=== PATIENT | male | born 1940 | race Caucasian/White ===

== ENCOUNTER → 2020-10-17 09:13 | Outpatient (BNVA) | payer OTHER, SELFPAY | PROVIDERS: Family Provider Nurse Practitioner; PCP Emergency Medicine Emergency Medical Services; Visit Provider Specialist | DX: M65.30 Trigger finger, unspecified finger (principal); G56.01 Carpal tunnel syndrome, right upper limb; G56.21 Lesion of ulnar nerve, right upper limb; R20.0 Anesthesia of skin; R20.2 Paresthesia of skin; Z87.891 Personal history of nicotine dependence | CPT/HCPCS: 95886; 95908 ==

== ENCOUNTER → 2021-04-25 10:01 | Outpatient (BNVA) | payer OTHER, SELFPAY | PROVIDERS: Family Provider Nurse Practitioner; PCP Nurse Practitioner; Visit Provider Orthopaedic Surgery | DX: M79.641 Pain in right hand (principal) | CPT/HCPCS: 73130 ==

== ENCOUNTER → 2021-07-25 10:13 | Day surgery (SDC) | payer OTHER, SELFPAY | PROVIDERS: PCP Nurse Practitioner; Visit Provider Orthopaedic Surgery | DX: Z01.818 Encounter for other preprocedural examination (principal); M17.12 Unilateral primary osteoarthritis, left knee | CPT/HCPCS: 80048; 93005; J0330; J1100; J2370; J2405; J2704; J2710; J3010; J3490 ==

== ENCOUNTER → 2021-07-25 11:45 | Outpatient (BNVA) | payer OTHER, SELFPAY | PROVIDERS: PCP Nurse Practitioner; Visit Provider Orthopaedic Surgery | DX: Z01.812 Encounter for preprocedural laboratory examination (principal); Z20.822 Contact with and (suspected) exposure to COVID-19 | CPT/HCPCS: 87635 ==

== ENCOUNTER 2021-07-31 17:11 | Observation (INO) | payer OTHER, MEDICARE, SELFPAY ==
[2021-07-25 10:00] VITALS: BMI 31.4
--- NOTE | 2021-07-25 10:13 | ECG_ITS ---
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
--- NOTE | 2021-07-25 11:23 | ANES.PREANE2 ---
Pre-Anesthetic Assessment Pre-Anesthetic Assessment: Height/Weight: Height 1.8 m Weight 102.058 kg Preop Diagnosis: Osteoarthritis Left knee Proposed Procedure: Operation Date: 07/31/21 11:45 Proposed Procedures p Total Knee Arthroplasty Left 16167 M17.12(Left) - Nathan Ayala MD Was Beta Brionna taken within 24 hours: Yes Social: Social History: No alcohol and No tobacco Exam: Pre-Anes Outpt Exam: alert, oriented x 3, clear to auscultation bilaterally and regular rate & rhythm Airway: Submandibular: WNL Cervical ROM: WNL History/ROS: No significant history except as noted Pulmonary: Pulmonary: None reported CV/HEM: Comments: Hx of hypertensive crisis METS < 4 : : None reported Hepatic: Hepatic: None reported GI: GI: GERD Metabolic: Metabolic: DM Musc/skel: Musc/skel: OA/DJD Neuropsych: Neuropsych: Anxiety Anesthetic Plan: ASA status: 3 Anesthesia: Anesthesia Evaluation and Regional (specify below) Other: Spinal, Adductor canal block for post op pain control Risk of > 500 ml blood loss (7ml/kg in children): No PFSH Anesthesia PFSH: Medical History Ankle arthritis Diabetes Eye disorder Gall bladder 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 Knee cap dislocation Rotator cuff arthropathy Family History Mother CAD (coronary artery disease) Social History Smoking and tobacco status: never smoked Alcohol intake: former Data Anesthesia CBC & Chem 7: 07/25/21 10:18 Cardiac Studies: No Data to Display
[2021-07-25 11:50] LABS: Anion Gap 17.6 (5-19); Blood Urea Nitrogen 18 mg/dL (8-23); Calcium 8.6 mg/dL (8.5-10.5); Carbon Dioxide 23 mmol/L (22-29); Chloride 100 mmol/L (98-107); Glucose 137 mg/dL (65-115); Osmolality Calculated 286 mOsm/kg (285-295); Potassium 4.6 mmol/L (3.5-5.1); Sodium 136 mmol/L (136-145)
[2021-07-31] VITALS (19 sets, daily range): BP systolic 92–155; BP diastolic 58–91; PULSE 62–88; RESP 10–18; TEMP 36.5–36.9; O2SAT 91–99
[2021-07-31] MEDS: acetaminophen 500 mg Tablet 1000 MG PO ×2 (10:43→18:02)
[2021-07-31] MEDS: sodium chloride 0.9% 1,000 ML 30 ML IV (10:43)
[2021-07-31] MEDS: oxyCODONE 20 mg ER (12 HR) Tablet PO (10:43)
[2021-07-31 10:49] LABS: Glucose Point of Care 160 mg/dL (70-110)
--- NOTE | 2021-07-31 13:20 | W.PM.OPSFHP ---
Same Day Surgery H&P Indication for Procedure/HPI DATE OF PROCEDURE: July 31, 2021 CHIEF COMPLAINT/INDICATIONFOR SURGICAL PROCEDURE: Osteoarthritis left knee here for total knee arthroplasty PREOP DIAGNOSIS: Osteoarthritis Left knee PLANNED PROCEDRUE: Operation Date: 07/31/21 11:45 Proposed Procedures p Total Knee Arthroplasty Left 89034 M17.12(Left) - Nathan Ayala MD 81-year-old male with a long history of left knee pain. Previous treatment has included corticosteroid injections and anti-inflammatories including Celebrex. The patient has persistent activity related pain and is here for a left total knee arthroplasty Medications/Allergies* Home Medications Medication Instructions Recorded Confirmed Type metformin 1,000 mg tablet 1,000 mg PO BID 08/01/20 07/31/21 History amlodipine 5 mg tablet 5 mg PO DAILY 10/17/20 07/31/21 History aspirin 81 mg tablet,delayed 81 mg PO DAILY 10/17/20 07/31/21 History release benazepril 20 mg tablet 20 mg PO DAILY 10/17/20 07/31/21 History celecoxib 200 mg capsule 200 mg PO DAILY 10/17/20 07/31/21 History gabapentin 100 mg capsule 100 mg PO TID 10/17/20 07/31/21 History hydrochlorothiazide 25 mg tablet 25 mg PO DAILY 10/17/20 07/31/21 History lovastatin 40 mg tablet 40 mg PO DAILY 10/17/20 07/31/21 History omega-3 fatty acids 500 mg capsule 500 mg PO BID 10/17/20 07/31/21 History venlafaxine 75 mg tablet 75 mg PO BID 10/17/20 07/31/21 History insulin aspart U-100 100 unit/mL 10 unit SUBCUT TID 04/17/21 07/31/21 History subcutaneous solution memantine 5 mg tablet 5 mg PO BID 04/17/21 07/31/21 History metoprolol tartrate 50 mg tablet 50 mg PO DAILY 04/17/21 07/31/21 History pregabalin 200 mg capsule 300 mg PO BID 04/17/21 07/31/21 History cholecalciferol (vitamin D3) 50 mcg PO DAILY 07/25/21 07/31/21 History [Vitamin D3] insulin glargine [Lantus Solostar 40 unit SUBCUT QPM 07/25/21 07/31/21 History U-100 Insulin] Allergies/Adverse Reactions Allergy/AdvReac Type Severity Reaction Status Date / Time morphine Allergy sees things Verified 04/25/21 09:50 Current Medications: Generic Name Dose Route Start Last Admin Trade Name Himanshu PRN Reason Stop Dose Admin Sodium Chloride 1,000 mls @ 30 mls/hr 07/31/21 10:00 07/31/21 10:43 Sodium Chloride 0.9% IV 08/01/21 09:59 30 mls/hr .Q24H ERICA Administration Pertinent History/Comorbid Conditions* Medical History (Updated 04/25/21 @ 10:30 by Nathan Ayala MD) Ankle arthritis Diabetes Eye disorder Gall bladder 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 Knee cap dislocation Rotator cuff arthropathy Family History (Updated 08/01/20 @ 14:42 by Anna Mendez LPN) Mother CAD (coronary artery disease) Mother Social History Smoking and tobacco status: never smoked Alcohol intake: former Pertinent Exam Findings alert, oriented x 3, clear to auscultation bilaterally, regular rate & rhythm and operative site marked Recommendations Surgery/Procedure today Coding Level of Care Code Acute Global Program Director for [address]
[2021-07-31] MEDS: tranexamic acid 1,000 mg/10mL SDV 1000 MG IRRIGATION (14:34)
[2021-07-31] MEDS: EPINEPHrine 1 mg/mL INJ XX (14:34)
[2021-07-31] MEDS: ketorolac 30 mg/mL INJ IM (14:35)
[2021-07-31] MEDS: tranexamic acid 1,000 mg/10mL SDV 1000 MG IV (14:35)
--- NOTE | 2021-07-31 14:44 | ANES.PROC ---
Anesthesia Procedures Procedure/Date: 07/31/21 Nerve Block ^: Nerve Block 1: Main Anesthesia: spinal anesthesia block Time Out Performed: Yes Consent: requested by attending/covering physician, from patient, risks and benefits reviewed and patient agrees to proceed Nerve block location: adductor canal (left) Anesthesia monitors applied: pulse oximetry, EKG, BP cuff and oxygen Nerve block position: supine Anesthetic Used: ropivicaine 0.5% Amount of anesthesia used (mL): 20 Ultrasound used to: recognize landmarks Nerve Stimulator Used?: No Interscalene/Femoral BLK: 4 stimuplex 21 g needle used for position and inplane approach and visualize local anesthetic spread Injection: neg aspiration of heme Patient Tolerated Procedure: well Complications: none
--- NOTE | 2021-07-31 15:44 | XR_ITS ---
WS: [id number] XR knee LT -2V 65736 REASON FOR EXAM: Left Total knee arthroplasty FINDINGS: 3 component total left knee arthroplasty. Prosthetic complements are in proper position and alignment. No focal bony abnormality. XR/[place] [address] IMPRESSION: Total left knee arthroplasty without abnormality.
--- NOTE | 2021-07-31 15:45 | P.PCN_ITS ---
Documented by User: Danyel Vargas CRNA 07/31/21 15:46 PACU note PACU note: VSS, Good respiratory effort, report to PSYCHOTHERAPIST Post-Anesthesia Exam: awake
--- NOTE | 2021-07-31 15:45 | PM.OP ---
Operative Report Date of procedure: July 31, 2021 Pre-op Diagnosis: Osteoarthritis Left knee Post-op diagnosis: same Post-op Findings: Same Procedure Done: Left total knee arthroplasty Pathology: none sent Surgeon: Nathan Ayala Anesthesia: Nerve Block ( spinal, adductor canal block) Estimated blood loss (mL): 250 Findings: Patient had eburnated bone over the medial femoral condyle patella and trochlea Condition: stable Disposition: PACU Procedure: The patient was taken to the operating room. Patient was given 1 g of tranexamic acid . The above anesthesia provided by the anesthesia service. A timeout was performed. The patient was prepped and draped in the usual fashion with the lower extremity exposed. A anterior incision was made, midline, from a point proximal to the patella to the distal tibial tubercle. The knee was entered through a medial parapatellar approach. The patella could be displaced laterally and the knee flexed. The patellar fat pad was resected to provide better visibility. Retractors were placed medially and laterally adjacent to the tibial plateau. The femoral canal was drilled in line with the longitudinal axis of the femur. Intramedullary femoral guide for used to make a distal femoral cut in 5 degrees of valgus, resecting 8 mm from the more prominent condyle. Next the extra medullary tibial guide was placed in alignment with the longitudinal axis of the tibia. The cutting guides were set to remove just over 9 mm from the high tibial plateau. The proximal tibia was then cut. The femoral measuring guide was then placed over the distal femur. Rotation was verified checking the relationship of the guide to the condyle and the trochlear groove. The femur was measured and cut for the desired femoral component. The desired tibial baseplate was then chosen. A trial reduction with the femur tibial baseplate and polyethylene was done, assuring that the knee was stable throughout full motion. Ligament balancing nothing more than a release of the deep medial collateral ligament.The tibia was prepared for the tibial baseplate. Patellar thickness was then measured. The patella was cut removing articular cartilage and prepared for appropriate size patellar button. surfaces were cleaned with a gentamicin solution. The femur tibia and patella were then press-fit into place. The posterior capsule and collateral ligaments were then injected with a solution of 100 mL of 0.2% ropivacaine, 1 mL of a 1:1000 epinephrine solution, 30 mg of Toradol, and 1 g of tranexamic acid. final polyethylene component was then snapped into place into the tibia. The extensor retinaculum was closed with a running 1 Stratafix.. The subcutaneous tissues were closed with 2-0 Vicryl and the skin was closed with a running 4-0 Stratafix. The wound was covered with a Dermabond Prinio dressing. It was covered with 4xrs and a compressive Tubigauae was applied. The patient was taken to recovery room in stable condition. [employer] total knee arthroplasty components were used includin) Size 7 triathalon cruciate retaining femoral component 2) Size 6 Tritanium tibial component 3) 35 mm /10 mm thickness Tritanium asymetric patella 4) Size 6/9 mm thickness CR tibial bearing insert
[2021-07-31] MEDS: flumazenil 0.1 mg/mL SDV 5mL 0.5 MG (15:57)
--- NOTE | 2021-07-31 16:47 | ANE.PACU2 ---
Inpatient post-anesthesia follow up: Airway intact: Yes Vital signs: Temperature 97.7 F Pulse Rate 70 Respiratory Rate 11 Blood Pressure 126/58 Pulse Oximetry 91 Oxygen Delivery Me thod Room Air Oxygen Flow Rate 10 Fraction of Inspir ed Oxygen Hydration adequate: Yes Nausea and vomiting: No Pain level: 1 Mental status: Altered (Patient difficult to arouse, flumazenil given 0.1mg which helped)
[2021-07-31] MEDS: sodium chloride 0.9% 1,000 ML 100 ML IV (17:52)
[2021-07-31 18:00] LABS: Glucose Point of Care 212 mg/dL (70-110)
[2021-07-31] MEDS: CELEcoxib 200 mg Capsule PO (18:03)
[2021-07-31] MEDS: insulin lispro 100 unit/1 mL SUBCUT ×2 (18:03→21:09)
[2021-07-31] MEDS: pregabalin 100 mg Capsule 300 MG PO (18:03)
[2021-07-31] MEDS: venlafaxine 75 mg Tablet PO (18:03)
[2021-07-31] MEDS: memantine 5 mg tablet PO (18:03)
--- NOTE | 2021-07-31 18:35 | PC.NURSE ---
Patient received to floor from OR via stretcher. Pt scooted self over to bed. Oriented to room/call light. Clear liquids given. at bedside.
[2021-07-31] MEDS: oxyCODONE 5 mg IR Tab/Cap PO (21:00)
[2021-07-31 21:06] LABS: Glucose Point of Care 189 mg/dL (70-110)
[2021-07-31] MEDS: gabapentin 100 mg Capsule PO (22:57)
[2021-08-01 00:10] VITALS: BP 147/70; PULSE 73; RESP 16; TEMP 36.6; O2SAT 94
[2021-08-01] MEDS: acetaminophen 500 mg Tablet 1000 MG PO ×2 (01:38→09:01)
[2021-08-01 01:44] VITALS: RESP 16
[2021-08-01] MEDS: oxyCODONE 5 mg IR Tab/Cap PO ×2 (01:44→09:01)
[2021-08-01 04:10] VITALS: BP 160/87; PULSE 70; RESP 15; TEMP 36.6; O2SAT 95
[2021-08-01] MEDS: sodium chloride 0.9% 1,000 ML 100 ML IV (04:31)
[2021-08-01 04:41] LABS: Hemoglobin 13.3 g/dL (11.7-16.6)
[2021-08-01] MEDS: CELEcoxib 200 mg Capsule PO (05:58)
--- NOTE | 2021-08-01 07:21 | P.DS_ITS ---
Discharge Providers Date of Admission: 07/31/21 17:11 Date of Discharge: August 01, 2021 Attending Provider at Admission: Nathan Ayala MD Attending Provider at Discharge: Nathan Ayala MD Primary Care Provider: TANMAY Rangel Diagnoses at Discharge Discharge Diagnosis (1) Osteoarthritis of left knee: Status: Resolved (2) Status post left knee replacement: Status: Acute Reason for Visit Reason for Visit: Primary osteoarthritis of left knee Hospital Course Hospital Course The patient tolerated surgery well. They remained hemodynamically stable. They was begun on aspirin and sequential compression dressings for DVT prophylaxis. The patient was mobilized with therapy beginning the day of surgery and by the first postoperative day independent with the walker. As the pain was adequately controlled and they were fully mobile they were discharged home. Physical Exam Narrative: EXAM NARRATIVE: On the day of discharge his knee incision was clean. They had no drainage. There is minimal swelling in the thigh and knee and the calf. No distal neurovascular deficits were noted Urinary Catheter Management^: Spears: Cath Placed During This Visit: yes Reason for Continuing Indwelling Catheter: Not indwelling catheter Urinary Catheter Date of Insertion: 07/31/21 Urinary Catheter Time of Insertion: 14:05 Discharge Data Data Completed and Pending: Pending at discharge Category Date Time Status XR knee LT 1-2V 7 3560 Routine Exams 07/31/21 15:44 Taken Labs from last 24 hours 08/01/21 07/31/21 07/31/21 04:07 21:03 17:55 Hgb 13.3 POC Glucose 189 H 212 H 07/31/21 10:35 Hgb POC Glucose 160 H Vitals: Last Vital Signs Temp 97.9 F 08/01/21 04:10 Pulse 70 08/01/21 04:10 Resp 15 08/01/21 04:10 BP 160/87 08/01/21 04:10 Pulse Ox 95 08/01/21 04:10 Discharge Plan Discharge Patient Disposition: Home Condition: Stable Prescriptions: New oxycodone 5 mg Tablet 5 mg PO Q4H PRN (Reason: Moderate Pain) 7 Days Qty: 40 RF: 0 acetaminophen 500 mg Tablet 1,000 mg PO Q8H 14 Days Qty: 84 RF: 0 celecoxib 200 mg Capsule 200 mg PO Q12H 14 Days Qty: 28 RF: 0 Continued gabapentin 100 mg capsule 100 mg PO TID RF: 0 omega-3 fatty acids 500 mg capsule 500 mg PO BID RF: 0 venlafaxine 75 mg tablet 75 mg PO BID RF: 0 lovastatin 40 mg tablet 40 mg PO DAILY RF: 0 amlodipine 5 mg tablet 5 mg PO DAILY RF: 0 benazepril 20 mg tablet 20 mg PO DAILY RF: 0 hydrochlorothiazide 25 mg tablet 25 mg PO DAILY RF: 0 aspirin [Adult Low Dose Aspirin] 81 mg tablet,delayed release (DR/EC) 81 mg PO DAILY RF: 0 metformin 1,000 mg tablet 1,000 mg PO BID RF: 0 memantine 5 mg tablet 5 mg PO BID RF: 0 pregabalin 200 mg capsule 300 mg PO BID RF: 0 insulin aspart U-100 [Novolog U-100 Insulin aspart] 100 unit/mL solution 10 unit SUBCUT TID RF: 0 metoprolol tartrate 50 mg tablet 50 mg PO DAILY RF: 0 mupirocin 2 % ointment 1 applic topical BID Qty: 15 RF: 0 Lantus Solostar U-100 Insulin 100 unit/mL (3 mL) Insulin Pen 40 unit SUBCUT QPM RF: 0 cholecalciferol (vitamin D3) [Vitamin D3] 50 mcg (2,000 unit) Tablet 50 mcg PO DAILY RF: 0 Discontinued celecoxib 200 mg capsule 200 mg PO DAILY RF: 0 Discharge Orders: Discharge Order (Routine); Ordered 08/01/21 Ordered By: Nathan Ayala Other Ambulatory Orders: DME: Stuart (Order) Location: None Selected Ordered By: Nathan Ayala Referrals: Nathan Ayala MD [Physician] - 08/04/21 9:10 am Discharge Diet: Advance as tolerated Discharge Activity: Limit activity as instructed Patient Instructions: Opioid Safety Activity Restrictions/Additional Instructions: Okay to shower Keep Tubigauze sleeve in place for swelling. Okay to remove for hygiene. Apply FirstIce up to 20 min/hr for pain and swelling Take Celebrex twice a day for the next 15 days for pain , discontinue other anti-inflammatories Take Tylenol 500mg (1-2 tabs) as needed 3 times a day for mild pain take oxycodone for breakthrough pain. Exercises per physical therapy. May weight-bear as tolerated on total knee arthroplasty Discharge Attestations Time Spent in Discharge Care*: other Quality Metrics Clinical Quality Measures During this hospital stay, did patient experience: None Coding Level of Care Code Acute [facility] note Diagnoses Osteoarthritis of left knee M17.12 Status post left knee replacement Z96.652
[2021-08-01] MEDS: amlodipine 10 mg Tablet 5 MG PO (08:56)
[2021-08-01] MEDS: atorvastatin 40 mg Tablet 20 MG PO (08:57)
[2021-08-01] MEDS: aspirin 81 mg EC Tablet PO (08:57)
[2021-08-01] MEDS: hydroCHLOROthiazide 25 mg Tablet PO (08:58)
[2021-08-01] MEDS: gabapentin 100 mg Capsule PO (08:58)
[2021-08-01] MEDS: lisinopril 20 mg Tablet PO (08:59)
[2021-08-01] MEDS: metoprolol tartrate 25 mg Tablet 50 MG PO (08:59)
[2021-08-01] MEDS: memantine 5 mg tablet PO (08:59)
[2021-08-01] MEDS: pregabalin 100 mg Capsule 300 MG PO (09:00)
[2021-08-01 09:01] VITALS: RESP 18
[2021-08-01] MEDS: venlafaxine 75 mg Tablet PO (09:01)
[2021-08-01 09:14] LABS: Glucose Point of Care 131 mg/dL (70-110)
[2021-08-01 10:28] VITALS: BP 141/72; PULSE 74; RESP 18; TEMP 36.7; O2SAT 92
[2021-08-01 11:33] LABS: Glucose Point of Care 157 mg/dL (70-110)
[2021-08-01] MEDS: insulin lispro 100 unit/1 mL SUBCUT (11:41)
[2021-08-01 15:05] VITALS: BP 105/54; PULSE 64; RESP 16; TEMP 36.6; O2SAT 93
== END 2021-08-01 14:15 | disposition home or self-care (01) ==
PROVIDERS: Anesthesiology; Admitting Provider Orthopaedic Surgery; PCP Nurse Practitioner; Visit Provider Orthopaedic Surgery
PROC: (CPT 27447; principal; 2021-07-31 11:30)
DX: M17.12 Unilateral primary osteoarthritis, left knee (principal); K21.9 Gastro-esophageal reflux disease without esophagitis; E11.9 Type 2 diabetes mellitus without complications; F41.9 Anxiety disorder, unspecified; Z79.84 Long term (current) use of oral hypoglycemic drugs; Z79.82 Long term (current) use of aspirin; Z79.4 Long term (current) use of insulin
CPT/HCPCS: 27447; 36415; 36416; 51702; 73560; 82962; 85018; 96372; 97110; 97116; 97161; 97165; C1776; G0378; J0171; J0690; J1580; J1815; J1885; J2250; J2370; J2704; J2795; J3010; J3490; J7030

== ENCOUNTER 2021-08-02 15:26 | Outpatient (CLI) | payer OTHER, SELFPAY | END 2021-08-02 15:27 | disposition home or self-care (01) | LOC: SPT 15:28 | PROVIDERS: PCP Nurse Practitioner; Visit Provider Orthopaedic Surgery | DX: Z46.89 Encounter for fitting and adjustment of other specified devices (principal); Z96.652 Presence of left artificial knee joint; M25.562 Pain in left knee | CPT/HCPCS: 97760; L1830 ==

== ENCOUNTER 2021-08-13 05:39 | Inpatient (IN) | payer OTHER, MEDICARE, SELFPAY ==
[2021-08-13] VITALS (18 sets, daily range): BP systolic 110–179; BP diastolic 65–102; PULSE 64–106; RESP 12–20; TEMP 36.2–36.9; O2SAT 70–97; BMI 31.8
--- NOTE | 2021-08-13 05:45 | XRR_ITS ---
PROCEDURE INFORMATION: Exam: XR Left Knee Exam date and time: 08/13/2021 5:45 AM Age: 81 years old Clinical indication: Injury or trauma; Fall; Blunt trauma; Knee; Left; Prior surgery; Surgery date: <1 month; Additional info: Fall, drainage TECHNIQUE: Imaging protocol: XR Left knee. Views: 3 views. COMPARISON: No relevant prior studies available. FINDINGS: Bones/joints: The patient is status post left total knee arthroplasty with patellar resurfacing. No fracture or dislocation. Expected postoperative soft tissue changes noted. Soft tissues: See Bones/joints finding. XR/XR knee LT 3V* [id number] IMPRESSION: Status post left total knee arthroplasty, without evidence of hardware related complication.
[2021-08-13 06:01] LABS: Basophils # 0.1 10^3/uL (0.0-0.1); Basophils % 0.7 %; Eosinophils # 0.4 10^3/uL (0.0-0.8); Eosinophils % 2.3 %; Hematocrit 38.4 % (42.0-52.0); Hemoglobin 12.5 g/dL (11.7-16.6); Lymphocytes # 2.1 10^3/uL (0.8-4.8); Lymphocytes % 13.7 %; Mean Corpuscular HGB Conc 32.6 g/dL (30.0-36.0); Mean Corpuscular Hemoglobin 30.7 pg (28.0-34.0); Mean Corpuscular Volume 94.3 fl (80-94); Mean Platelet Volume 11.3 fL (7.4-10.4); Monocytes # 1.4 10^3/uL (0.2-0.9); Monocytes % 9.3 %; Neutrophils # 11.19 10^3/uL (1.8-7.7); Neutrophils % 72.8 %; Nucleated Red Blood Cells % 0 %; Platelet Count 382 10^3/cmm (130-400); Red Blood Count 4.07 10^6/uL (4.1-5.3); Red Cell Distribution Width 13.6 % (12.1-15.1); White Blood Count 15.4 10^3/uL (4.0-10.0)
[2021-08-13 06:21] LABS: Alanine Aminotransferase 22 U/L (0-41); Albumin Level 3.8 g/dL (3.5-5.2); Alkaline Phosphatase 60 IU/L (40-130); Aspartate Amino Transferase 29 U/L (0-40); Blood Urea Nitrogen 24 mg/dL (8-23); C Reactive Protein 16.3 mg/L (0.0-4.9); Calcium 8.5 mg/dL (8.5-10.5); Carbon Dioxide 26 mmol/L (22-29); Chloride 101 mmol/L (98-107); Creatine Phosphokinase 45 U/L (39-308); Globulin 3.2 g/dL (1.3-4.6); Glucose 177 mg/dL (65-115); Osmolality Calculated 294 mOsm/kg (285-295); Sodium 138 mmol/L (136-145); Total Bilirubin 0.3 mg/dL (0.15-1.2)
[2021-08-13] MEDS: sodium chloride 0.9% 500 ML IV (06:24)
[2021-08-13 06:28] LABS: Erythrocyte Sedimentation Rate 16 mm/hr (0-10); Lactate (Lactic Acid level) 1.5 mmol/L (0.5-2.2); Procalcitonin 0.17 ng/mL (0-0.5)
--- NOTE | 2021-08-13 06:39 | W.ED.GENADLT ---
HPI - General Adult General: Chief complaint: Fall Stated complaint: LEFT KNEE PAIN Time Seen by Provider: 08/13/21 05:43 History of Present Illness: HPI narrative: Patient is a 81-year-old male with a history of total knee replacement on 07/31/[address] Ayala presenting to the emergency room after wound dehiscence after falling and unable to get up earlier today. Patient tells me that since surgery, patient has noticed left-sided knee swelling. Earlier this morning, patient was attempting to ambulate to the bathroom with a walker when his walker does not fit the door and he walked to the bathroom without a walker. Shortly after, he fell onto the left knee and the wound dehisced. Patient denies any fever/chills, drainage from the knee, or any other injuries as a result of the fall. Onset: earlier today Duration:ongoing Location:home Severity:severe Review of Systems Narrative: Constitutional: No fever, no chills. HEENT: No vision changes CV: No chest pain, no palpitations PULM: no cough, no dyspnea. GI: No abdominal pain, no N/V/D. : No dysuria MSKEL: No muscle pain SKIN: +wound dehiscence L knee NEURO: No headache, no focal weakness. HEME: No visible bruises PSYCH: Normal mood PFSH ED PFSH: Medical History Ankle arthritis Diabetes Eye disorder Gall bladder 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 Knee cap dislocation Rotator cuff arthropathy Family History Mother CAD (coronary artery disease) Social History Smoking and tobacco status: never smoked Alcohol intake: former Physical Exam Narrative: EXAM NARRATIVE: Head: Atraumatic Eyes: PERRL, conjunctiva without injection ENT: Mucous membrane moist NECK: Supple, ROM intact LUNGS: LCTAB, no crackles/rhonchi CV: RRR ABDOMEN: Soft, nontender in all quadrants EXTREMITY: Normal ROM SKIN: +large wound dehiscence over the L knee, +no drainage/excessive bleeding, +LLE below the knee swelling/erythema/warmth NEURO: Awake and alert, no focal motor deficits PSYCH: Normal mood and affect Course Vital Signs: Vital signs: Vital Signs Temperature 98.1 F 08/14/21 20:53 Pulse Rate 92 08/14/21 20:53 Respiratory Rate 20 H 08/14/21 20:53 Blood Pressure 161/82 08/14/21 20:53 Pulse Oximetry 90 08/14/21 20:53 MDM - General Adult MDM Narrative: Medical decision making narrative: 81-year-old male w/ hx of DM presents emergency room with left knee wound dehiscence after total arthroplasty. Then, patient has a gaping wound, white count 15.4. Patient is afebrile. I have discussed case emergently with the on-call orthopedic surgeon Dr. Nguyen with his to go to the OR for washout. Dr. Nguyen declined antibiotics at this time. Patient also has a L lower extremity cellultis, will require antibiotics on admission Disposition: OR Lab Data: Labs: Lab Results 08/13/21 08/13/21 08/13/21 05:45 05:45 05:45 WBC 15.4 10^3/uL H 10 ^3/uL (4.0-10.0) RBC 4.07 10^6/uL L 10 ^6/uL (4.1-5.3) Hgb 12.5 g/dL g/dL (11.7-16.6) Hct 38.4 % L % (42.0-52.0) MCV 94.3 fl H fl (80-94) MCH 30.7 pg pg (28.0-34.0) MCHC 32.6 g/dL g/dL (30.0-36.0) RDW 13.6 % % (12.1-15.1) Plt Count 382 10^3/cmm 10^3 /cmm (130-400) MPV 11.3 fL H fL (7.4-10.4) Neut % (Auto) 72.8 % % Lymph % (Auto) 13.7 % % [place] % (Auto) 9.3 % % Eos % (Auto) 2.3 % % Baso % (Auto) 0.7 % % Neut # (Auto) 11.19 10^3/uL H 1 0^3/uL (1.8-7.7) Lymph # (Auto) 2.1 10^3/uL 10^3/ uL (0.8-4.8) [place] # (Auto) 1.4 10^3/uL H 10^ 3/uL (0.2-0.9) Eos # (Auto) 0.4 10^3/uL 10^3/ uL (0.0-0.8) Baso # (Auto) 0.1 10^3/uL 10^3/ uL (0.0-0.1) Nucleated RBC % (a uto) 0 % % Nucleated RBCs # 0.0 /100WBC /100W BC ESR 16 mm/hr H mm/hr (0-10) PT INR APTT Sodium 138 mmol/L mmol/L (136-145) Potassium 5.0 mmol/L mmol/L (3.5-5.1) Chloride 101 mmol/L mmol/L (98-107) Carbon Dioxide 26 mmol/L mmol/L (22-29) Anion Gap 16.0 (5-19) BUN 24 mg/dL H mg/dL (8-23) Creatinine 1.1 mg/dL mg/dL (0.7-1.2) GFR Calculation Not Reportable Glucose 177 mg/dL H mg/dL (65-115) Calculated Osmolal ity 294 mOsm/kg mOsm/ kg (285-295) Lactate Calcium 8.5 mg/dL mg/dL (8.5-10.5) Total Bilirubin 0.3 mg/dL mg/dL (0.15-1.2) AST 29 U/L U/L (0-40) ALT 22 U/L U/L (0-41) Alkaline Phosphata se 60 IU/L IU/L (40-130) Creatine Kinase 45 U/L U/L (39-308) C-Reactive Protein 16.3 mg/L H mg/L (0.0-4.9) Total Protein 7.0 g/dL g/dL (6.6-8.7) Albumin 3.8 g/dL g/dL (3.5-5.2) Globulin 3.2 g/dL g/dL (1.3-4.6) Procalcitonin 0.17 ng/mL ng/mL (0-0.5) 08/13/21 08/13/21 05:45 06:44 WBC RBC Hgb Hct MCV MCH MCHC RDW Plt Count MPV Neut % (Auto) Lymph % (Auto) [place] % (Auto) Eos % (Auto) Baso % (Auto) Neut # (Auto) Lymph # (Auto) [place] # (Auto) Eos # (Auto) Baso # (Auto) Nucleated RBC % (a uto) Nucleated RBCs # ESR PT 13.80 SECONDS SEC ONDS (12.1-14.9) INR 1.03 (0.8-1.2) APTT 25.6 SECONDS SECO NDS (23.9-36.7) Sodium Potassium Chloride Carbon Dioxide Anion Gap BUN Creatinine GFR Calculation Glucose Calculated Osmolal ity Lactate 1.5 mmol/L mmol/L (0.5-2.2) Calcium Total Bilirubin AST ALT Alkaline Phosphata se Creatine Kinase C-Reactive Protein Total Protein Albumin Globulin Procalcitonin Imaging Data^: Other Imaging: Radiologist's impression: [address] [id number] ReportSigned Patient: El Maxwell #: [id number]: 1940cct#:[id number]/Sex: 81 / MADM Date: 08/13/21Loc: ERRoom/Bed:Attending Dr: Ordering Provider/Ordering MD: Neo Mahan DO Date of Service: 08/13/21 Procedure(s): XR knee LT 3V* [id number] Accession Number(s): [id number] Report Number: [id number] PROCEDURE INFORMATION: Exam: XR Left Knee Exam date and time: 08/13/2021 5:45 AM Age: 81 years old Clinical indication: Injury or trauma; Fall; Blunt trauma; Knee; Left; Prior surgery; Surgery date: <1 month; Additional info: Fall, drainage TECHNIQUE: Imaging protocol: XR Left knee. Views: 3 views. COMPARISON: No relevant prior studies available. FINDINGS: Bones/joints: The patient is status post left total knee arthroplasty with patellar resurfacing. No fracture or dislocation. Expected postoperative soft tissue changes noted. Soft tissues: See Bones/joints finding. XR/XR knee LT 3V* [id number] IMPRESSION: Status post left total knee arthroplasty, without evidence of hardware related complication. Dictated By:Claudio Shipley By:Claudio Shipley Date/Time:08/13/21 0652DD/ 0545 Discharge Plan Discharge Patient Disposition: Admitted As Inpatient Admit Provider: Annie Sky Clinical Impression: Dehiscence of wound, History of knee replacement, total, Cellulitis Condition: Stable Coding Level of Care Code ED Coffee Blender for [address]
[2021-08-13 07:01] LABS: INR 1.03 (0.8-1.2); Partial Thromboplastin Time 25.6 SECONDS (23.9-36.7)
[2021-08-13] MEDS: HYDROmorphone 1 mg/mL INJ 1 mL 0.5 MG IVP (07:45)
--- NOTE | 2021-08-13 08:37 | ANES.PREANE2 ---
Pre-Anesthetic Assessment Pre-Anesthetic Assessment: Height/Weight: Height 1.83 m Weight 106.594 kg Pulse Resp BP Pulse Ox 74 18 164/77 94 08/13/21 05:59 08/13/21 07:45 08/13/21 05:59 08/13/21 07:45 Preop Diagnosis: Osteoarthritis Left knee Proposed Procedure: Operation Date: 08/13/21 09:10 Proposed Procedures p Incision and Drainage(Left) - Annie Sky MD Familial anesthetic complications: none Was Beta Brionna taken within 24 hours: Yes Last intake: > 8hrs Social: Social History: No alcohol and No tobacco Exam: Pre-Anes Outpt Exam: alert, oriented x 3, clear to auscultation bilaterally and regular rate & rhythm Airway: MP: 3 Dentition: Other (few bottom teeth) Additional comments: full bowden CV/HEM: CV/HEM: HTN GI: GI: GERD Metabolic: Metabolic: DM Anesthetic Plan: ASA status: 3 Anesthesia: General Risk of > 500 ml blood loss (7ml/kg in children): No PFSH Anesthesia PFSH: Medical History Ankle arthritis Diabetes Eye disorder Gall bladder 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 Knee cap dislocation Rotator cuff arthropathy Family History Mother CAD (coronary artery disease) Social History Smoking and tobacco status: never smoked Alcohol intake: former Data Anesthesia CBC & Chem 7: 08/13/21 05:45 08/13/21 05:45 Other Labs: Laboratory Results - last 48 hr 08/13/21 08/13/21 08/13/21 05:45 05:45 05:45 WBC 15.4 H RBC 4.07 L Hgb 12.5 Hct 38.4 L MCV 94.3 H MCH 30.7 MCHC 32.6 RDW 13.6 Plt Count 382 MPV 11.3 H Neut % (Auto) 72.8 Lymph % (Auto) 13.7 [place] % (Auto) 9.3 Eos % (Auto) 2.3 Baso % (Auto) 0.7 Neut # (Auto) 11.19 H Lymph # (Auto) 2.1 [place] # (Auto) 1.4 H Eos # (Auto) 0.4 Baso # (Auto) 0.1 Nucleated RBC % (auto) 0 Nucleated RBCs # 0.0 ESR 16 H PT INR APTT Sodium 138 Potassium 5.0 Chloride 101 Carbon Dioxide 26 Anion Gap 16.0 BUN 24 H Creatinine 1.1 GFR Calculation Not Reportable Glucose 177 H Calculated Osmolality 294 Lactate Calcium 8.5 Total Bilirubin 0.3 AST 29 ALT 22 Alkaline Phosphatase 60 Creatine Kinase 45 C-Reactive Protein 16.3 H Total Protein 7.0 Albumin 3.8 Globulin 3.2 Procalcitonin 0.17 08/13/21 08/13/21 05:45 06:44 WBC RBC Hgb Hct MCV MCH MCHC RDW Plt Count MPV Neut % (Auto) Lymph % (Auto) [place] % (Auto) Eos % (Auto) Baso % (Auto) Neut # (Auto) Lymph # (Auto) [place] # (Auto) Eos # (Auto) Baso # (Auto) Nucleated RBC % (auto) Nucleated RBCs # ESR PT 13.80 INR 1.03 APTT 25.6 Sodium Potassium Chloride Carbon Dioxide Anion Gap BUN Creatinine GFR Calculation Glucose Calculated Osmolality Lactate 1.5 Calcium Total Bilirubin AST ALT Alkaline Phosphatase Creatine Kinase C-Reactive Protein Total Protein Albumin Globulin Procalcitonin Micro: Microbiology 08/13/21 07:05 Blood Culture - Preliminary Blood SPECIMEN COLLECTED 08/13/21 05:45 Blood Culture - Preliminary Blood SPECIMEN COLLECTED Cardiac Studies: No Data to Display
[2021-08-13] MEDS: metoprolol tartrate 50 mg Tablet PO (08:44)
--- NOTE | 2021-08-13 09:01 | P.HPUD_ITS ---
Surgery/Procedure H&P Update DATE OF PROCEDURE: August 13, 2021 DATE H&P PERFORMED: 07/31/21 H&P UPDATE INFORMATION: I have reviewed H&P completed within last 30 days, I have examined patient prior to procedure, Changes to prior documentation as noted here and H&P is in [facility] [place] on date indicated CHANGES TO PREVIOUS DOCUMENTATION: The patient presented today to the emergency department after a fall at home. He got up to go to the bathroom at approximately 2-3 AM, and although he was holding onto the wall, he fell to the floor. He landed directly on his recent left total knee arthroplasty which was placed on July 31. The entire incision split open. He came to the emergency department for evaluation. I was contacted, the patient was to be admitted for IV antibiotics, and he was scheduled for immediate surgical washout and debridement. Further history was obtained, and the patient notes that his knee has been swelling and painful since the time of his surgical intervention. He notes that it gets hot when it swollen. His foot is also swollen. He denies fevers and chills. PREOP DIAGNOSIS: Dehiscence left knee wound PRIMARY INDICATION FOR PROCEDURE: Left total knee arthroplasty wound dehiscence PLANNED PROCEDURE: Operation Date: 08/13/21 09:10 Proposed Procedures p Incision and Drainage(Left) - Annie Sky MD Possible polyethylene exchange and arthrotomy Related Problem List Diagnoses (1) Dehiscence of wound: (2) Status post left knee replacement:
[2021-08-13] MEDS: sodium chloride 0.9% 1,000 ML 30 ML IV (09:10)
[2021-08-13] MEDS: CELEcoxib 200 mg Capsule 400 MG PO (09:15)
[2021-08-13] MEDS: acetaminophen 1,000 MG/100 ML PIGGYBACK 400 MG IV ×2 (09:25→17:29)
[2021-08-13] MEDS: vancomycin 1,000 MG in sodium chloride 0.9% 250 ML 250 MG IV ×2 (09:30→20:51)
[2021-08-13] MEDS: vancomycin 1,000 MG SDV 1000 MG IRRIGATION (10:29)
[2021-08-13] MEDS: vancomycin 1,000 MG SDV 1000 MG XX (11:00)
[2021-08-13] MEDS: tranexamic acid 1,000 mg/10mL SDV 1000 MG IV (11:14)
--- NOTE | 2021-08-13 12:27 | ANE.PACU2 ---
Inpatient post-anesthesia follow up: Airway intact: Yes Vital signs: Temperature 97.3 F Pulse Rate 66 Respiratory Rate 14 Blood Pressure 136/73 Pulse Oximetry 92 Oxygen Delivery Me thod Room Air Oxygen Flow Rate Fraction of Inspir ed Oxygen Hydration adequate: Yes Nausea and vomiting: No Pain level: 3 Mental status: Baseline
[2021-08-13] MEDS: fentaNYL 50 mcg/mL INJ 2mL IVP (12:41)
--- NOTE | 2021-08-13 12:43 | XRR_ITS ---
PROCEDURE INFORMATION: Exam: XR Left Knee Exam date and time: 08/13/2021 12:43 PM Age: 81 years old Clinical indication: Injury or trauma; Fall; Blunt trauma; Knee; Left; Prior surgery; Surgery date: Post-operative (0-2 days); Surgery type: Post op; Additional info: Status post revision polyethylene component anything new TECHNIQUE: Imaging protocol: XR Left knee. Views: 1 or 2 views. COMPARISON: CR (LOW EXM, ) 08/13/2021 6:29 AM FINDINGS: Limitations: Somewhat limited examination due to an overlying knee brace. Bones/joints: Postoperative changes associated with recent total knee arthroplasty revision. No evidence of hardware complication. No radiographic evidence of acute fracture or dislocation. Alignment anatomic. Intra-articular gas and fluid, consistent with recent surgery. Soft tissues: Soft tissue swelling and anterior skin betzaida. XR/XR knee LT 1-2V [id number] IMPRESSION: 1. Postoperative changes associated with recent total knee arthroplasty revision. 2. Additional findings, as above.
--- NOTE | 2021-08-13 12:53 | PM.OP ---
Operative Report Date of procedure: August 13, 2021 Pre-op Diagnosis: Dehiscence left knee wound Post-op Diagnosis: Left knee dehiscence following total knee arthroplasty with quadriceps and medial retinacular rupture Post-op Findings: Medial retinacular rupture and tear of quadriceps tendon in addition to complete wound dehiscence. Procedure Done: Left knee irrigation and debridement of wound dehiscence into the knee joint with revision of tibial polyethylene, complete synovectomy, medial retinacular repair, and repair of quadriceps tendon tear, complete Implants: Tibial bearing insert?CR size 6 x 9 mm Specimens removed/disposition: Synovial tissue and fluid sent for culture Pathology: none sent Surgeon: Annie Sky Economic Manager: [facility] operating room technicians Anesthesia: General (Intubated, ASA 3E) Estimated blood loss (mL): 200 Tourniquet time: Not utilized IV fluids (mL): 700 Urine output (mL): 0 Urine output: No Spears present during procedure Complications: None Findings: Wound dehiscence with complete dehiscence of the fascial layer into the knee joint. Additional findings of large medial retinacular tear extending across the quadriceps tendon into the lateral aspect of the quad tendons. Tear was complete. No obvious fracture noted either on imaging studies or intraoperatively. Condition: stable Disposition: PACU (Then to floor for postoperative rehabilitation and IV antibiotic treatment.) Brief History: This 81-year-old gentleman presented to the emergency department with history of a fall at home. He is status post left total knee arthroplasty performed by Dr. Ayala on July 31, 2021. At the time of his fall, he states he was using the wall for support, and the next thing he knew, he had fallen to the ground and landed on his knee. He is uncertain as to why he fell. He does give a history of swelling in the knee and heat as well as a swollen foot. Upon presentation into the emergency room, he had significant wound dehiscence. He was admitted to the hospital for surgical intervention and subsequent antibiotic therapies. Procedure: The patient was brought to the operating theater, and after undergoing adequate general intubated anesthesia, ASA 3E, the left lower extremity was prepped and draped in usual fashion following placement of a tourniquet high on the leg. The leg was then draped free with the prepping accomplished with Betadine. A surgical pause was performed. At the time of the surgical pause we confirmed the site and side of surgery. The availability of equipment was confirmed, and the patient's identity was verbalized as well. Following the surgical pause, attention was directed to the patient's left lower extremity. A tourniquet was not elevated. The patient had complete wound dehiscence of the subcutaneous tissues and skin. Additionally, he had dehiscence into his total knee arthroplasty. Upon further evaluation, he had medial retinacular complete tear, quadriceps tendon complete tear, and extension laterally. There was no evidence of fracture within the knee joint. Debridement was accomplished of the skin and soft tissues in the subcutaneous area. Additionally, complete synovectomy was performed upon entry into the knee joint. Previous suture was removed as well. As soft tissues were debrided, we were able to better visualize the knee joint. Evaluation of the femur was accomplished as well as the tibia, and once again, no fractures were identified. Synovectomy was performed initially. The tibial insert was removed, and this allowed access to the posterior knee. At this time we were able to complete the synovectomy. Copious irrigation of the knee was accomplished after cultures were obtained. We sent synovial fluid as well as synovium for culture. Irrigation with 6 L of normal saline without antibiotic and an additional 3 L of normal saline with antibiotic was accomplished. We then inserted a tibial tray which matched the one that was removed. This was a CR tibial bearing insert size 6 x 9 mm. This was inserted uneventfully. After insertion of this insert, we then copiously irrigated the knee again with Betadine solution. This was allowed to remain in the wound and was suctioned dry and subsequently irrigated. Following this, attention was directed to quadriceps tendon repair. This also included repair of the medial retinaculum and lateral soft tissues. A Force Fiber #5 was used to internally repair the quadriceps tendon. Externally, this was supplemented with #1 PDS. We also used #1 PDS to close the medial retinaculum and lateral soft tissues. Once we had repaired this, we were able to gently flex the knee and find that this was stable. Closure was continued using #1 PDS along the entire arthrotomy incision line. Repair of the tendon did require extension of the patient's total knee arthroplasty wound proximally. Once this had been closed, further closure was accomplished using 2-0 Monocryl in the subcutaneous tissues, and the skin was closed with skin betzaida. A sterile dressing was then placed consisting of Prineo/Dermabond, Telfa, Tegaderm, sterile soft roll, and an Marlon wrap. The patient was returned the Recovery Room in a satisfactory condition. X-rays were obtained there. The patient will be discharged to the floor for postoperative rehabilitation and pain management. There were no complications. Associated Problem List Diagnoses (1) Dehiscence of wound: (2) Status post left knee replacement:
[2021-08-13] MEDS: oxyCODONE 5 mg IR Tab/Cap PO ×3 (13:35→22:22)
[2021-08-13] MEDS: gabapentin 100 mg Capsule PO ×2 (13:35→20:24)
--- NOTE | 2021-08-13 15:50 | PC.PHAR ---
PT IN SURGERY AT 0935 [facility]- NO RESPONSE PT IN SURGERY STILL AT 1210 (2ND ATTEMPT) [facility] AT 1214 CALLED [facility] AT 1313 AND SPOKE WITH FARRUKH, PT JUST GOT OUT OF SURGERY AND STILL DROWSY SPOKE WITH PATIENT AT 1530 AND PATIENT STATES HE IS UNABLE TO VERIFY MEDICATIONS AND HIS HELPS HIM. CALLED AT 1543 NO ANSWER CALLED AT 1550 NO ANSWER UNABLE TO VERIFY MEDICATIONS AT THIS TIME WILL CONTINUE TO TRY TO CONTACT .
[2021-08-13 16:38] LABS: Glucose Point of Care 331 mg/dL (70-110)
[2021-08-13] MEDS: mupirocin oint 22 gm 1 APPLIC NASAL (17:25)
[2021-08-13] MEDS: iron polysaccharide complex 150 mg Capsule PO (17:26)
[2021-08-13] MEDS: pregabalin 150 mg Capsule 300 MG PO (17:26)
[2021-08-13] MEDS: sodium chloride 0.9% 1,000 ML 100 ML IV (17:26)
[2021-08-13] MEDS: sennosides-docusate Tablet 2 TAB PO (17:26)
[2021-08-13] MEDS: calcium carbonate 500 mg Chew Tablet 1000 MG PO (17:26)
[2021-08-13] MEDS: memantine 5 mg tablet PO (17:29)
[2021-08-13] MEDS: venlafaxine 75 mg Tablet PO (17:29)
[2021-08-13] MEDS: chlorhexidine gluconate 0.12% Btl 473 mL 30 ML MUCOUS MEM ×2 (17:43→20:24)
[2021-08-13] MEDS: insulin lispro 100 unit/1 mL SUBCUT (17:44)
--- NOTE | 2021-08-13 19:40 | PM.CONSULT ---
Providers/Reason For Consult Attending Physician: Annie Sky MD Primary Care Provider: TANMAY Rangel History of Present Illness History of Present Illness El Maxwell is a 81 year old male Meds/Allergies Home Medications and Allergies Home Medications Medication Instructions Recorded Confirmed Last Taken Type metformin 1,000 mg tablet 1,000 mg PO BID 08/01/20 08/13/21 07/30/21 History amlodipine 5 mg tablet 5 mg PO DAILY 10/17/20 08/13/21 07/31/21 History aspirin 81 mg tablet,delayed 81 mg PO DAILY 10/17/20 08/13/21 07/29/21 History release benazepril 20 mg tablet 20 mg PO DAILY 10/17/20 08/13/21 07/30/21 History hydrochlorothiazide 25 mg tablet 25 mg PO DAILY 10/17/20 08/13/21 07/30/21 History lovastatin 40 mg tablet 40 mg PO DAILY 10/17/20 08/13/21 07/30/21 History omega-3 fatty acids 500 mg capsule 500 mg PO BID 10/17/20 08/13/21 07/30/21 History venlafaxine 75 mg tablet 75 mg PO BID 10/17/20 08/13/21 07/30/21 History insulin aspart U-100 100 unit/mL 10 unit SUBCUT TID 04/17/21 08/13/21 07/30/21 History subcutaneous solution memantine 5 mg tablet 5 mg PO BID 04/17/21 08/13/21 07/30/21 History metoprolol tartrate 50 mg tablet 50 mg PO DAILY 04/17/21 08/13/21 07/31/21 08:00 History pregabalin 200 mg capsule 300 mg PO BID 04/17/21 08/13/21 07/31/21 History Lantus Solostar U-100 Insulin 40 unit SUBCUT QPM 07/25/21 08/13/21 07/30/21 History cholecalciferol (vitamin D3) 50 mcg PO DAILY 07/25/21 08/13/21 07/30/21 History [Vitamin D3] mupirocin 2 % topical ointment 1 applic TOPICAL BID #15 g 07/26/21 08/13/21 07/31/21 Rx acetaminophen 1,000 mg PO Q8H 14 Days #84 tab 07/31/21 08/13/21 Unknown Rx celecoxib 200 mg PO Q12H 14 Days #28 cap 07/31/21 08/13/21 Unknown Rx knee immobilizer #1 ea 08/02/21 08/13/21 Unknown Rx gabapentin 100 mg capsule 100 mg PO TID #90 cap 08/04/21 08/13/21 Unknown Rx Allergies Allergy/AdvReac Type Severity Reaction Status Date / Time morphine Allergy sees things Verified 08/02/21 15:02 Current Medications Current Medications Generic Name Dose Route Start Last Admin Trade Name Freq PRN Reason Stop Dose Admin Calcium Carbonate 1,000 mg 08/13/21 18:00 08/13/21 17:26 Calcium Carbonate 500 Mg Chew Tablet PO 1,000 mg BID ERICA Administration Chlorhexidine Gluconate 30 ml 08/13/21 13:00 08/13/21 17:43 Chlorhexidine Gluconate 0.12% Btl 473 Ml MUCOUS MEM 30 ml QID ERICA Administration Gabapentin 100 mg 08/13/21 15:00 08/13/21 13:35 Gabapentin 100 Mg Capsule PO 100 mg TID ERICA Administration Sodium Chloride 1,000 mls @ 100 mls/hr 08/13/21 12:45 08/13/21 17:26 Sodium Chloride 0.9% IV 100 mls/hr .Q10H ERICA Administration Acetaminophen 1,000 mg in 100 mls @ 400 mls/hr 08/13/21 17:30 08/13/21 19:15 Acetaminophen IV 08/14/21 09:44 Infused Q8H ERICA Infusion Insulin Human Lispro 0 unit 08/13/21 18:00 08/13/21 17:44 Insulin Lispro 100 Unit/1 Ml SUBCUT 10 unit TIDWM ERICA Administration Protocol Memantine 5 mg 08/13/21 18:00 08/13/21 17:29 Memantine 5 Mg Tablet PO 5 mg BID ERICA Administration Mupirocin 1 applic 08/13/21 18:00 08/13/21 17:25 Mupirocin Oint 22 Gm NASAL 08/18/21 17:59 1 dose BID ERICA Administration Protocol Oxycodone HCl 5 mg 08/13/21 12:43 08/13/21 17:26 Oxycodone 5 Mg Ir Tab/Cap PO 5 mg Q4H PRN Administration MODERATE PAIN Polysaccharide Iron Complex 150 mg 08/13/21 18:00 08/13/21 17:26 Iron Polysaccharide Complex 150 Mg Capsule PO 150 mg BIDWM ERICA Administration Pregabalin 300 mg 08/13/21 18:00 08/13/21 17:26 Pregabalin 150 Mg Capsule PO 300 mg BID ERICA Administration Senna/Docusate Sodium 2 tab 08/13/21 18:00 08/13/21 17:26 Sennosides-Docusate Tablet PO 2 tab BID ERICA Administration Venlafaxine HCl 75 mg 08/13/21 18:00 08/13/21 17:29 Venlafaxine 75 Mg Tablet PO 75 mg BID ERICA Administration PFSH Acute PFSH: Medical History Ankle arthritis Diabetes Eye disorder Gall bladder 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 Knee cap dislocation Rotator cuff arthropathy Family History Mother CAD (coronary artery disease) Social History Smoking and tobacco status: never smoked Alcohol intake: former Vitals/I&O/Wt Last Vital Signs Temp 98.1 F 08/13/21 14:00 Pulse 71 08/13/21 15:43 Resp 18 08/13/21 15:43 BP 170/85 08/13/21 14:00 Pulse Ox 94 08/13/21 15:43 08/13/21 08/13/21 08/13/21 06:59 14:59 22:59 Intake Total 350 / 350 2080 / 2430 Output Total 1700 / 1700 1500 / 3200 Balance -1350 / -1350 580 / -770 Weight last 48 hrs Weight 106.594 kg Physical Exam Urinary Catheter Management^: Spears Latex: Cath Placed During This Visit: yes Reason for Continuing Indwelling Catheter: Perioperative Use in Selected Surgeries Urinary Catheter Date of Insertion: 08/13/21 Urinary Catheter Time of Insertion: 12:05 Data Micro: Micro: Microbiology 08/13/21 10:05 Gram Stain - Final Knee - Left 08/13/21 10:06 Gram Stain - Final Knee - Left 08/13/21 07:05 Blood Culture - Pr eliminary Blood SPECIMEN COLLEC ELPIDIO 08/13/21 05:45 Blood Culture - Pr eliminary Blood SPECIMEN COLLEC ELPIDIO Coding Level of Care Code Acute Loss Prevention Investigator for [facility]
[2021-08-13] MEDS: CELEcoxib 200 mg Capsule PO (20:24)
[2021-08-13 20:35] LABS: Glucose Point of Care 309 mg/dL (70-110)
[2021-08-13] MEDS: insulin glargine 100 units/1 mL 30 UNIT SUBCUT (20:59)
[2021-08-14] VITALS (10 sets, daily range): BP systolic 118–161; BP diastolic 63–82; PULSE 68–98; RESP 16–20; TEMP 36.6–37; O2SAT 90–95
[2021-08-14] MEDS: sodium chloride 0.9% 1,000 ML 100 ML IV (04:16)
[2021-08-14] MEDS: acetaminophen 1,000 MG/100 ML PIGGYBACK 400 MG IV (04:17)
[2021-08-14 06:21] LABS: Basophils # 0.1 10^3/uL (0.0-0.1); Basophils % 0.4 %; Eosinophils # 0.1 10^3/uL (0.0-0.8); Eosinophils % 0.4 %; Hematocrit 32.5 % (42.0-52.0); Hemoglobin 10.6 g/dL (11.7-16.6); Lymphocytes % 18.5 %; Mean Corpuscular HGB Conc 32.6 g/dL (30.0-36.0); Mean Corpuscular Hemoglobin 30.6 pg (28.0-34.0); Mean Corpuscular Volume 93.9 fl (80-94); Mean Platelet Volume 11.5 fL (7.4-10.4); Monocytes # 1.5 10^3/uL (0.2-0.9); Monocytes % 9.4 %; Neutrophils # 11.43 10^3/uL (1.8-7.7); Neutrophils % 70.6 %; Nucleated Red Blood Cells % 0 %; Platelet Count 335 10^3/cmm (130-400); Red Blood Count 3.46 10^6/uL (4.1-5.3); Red Cell Distribution Width 13.9 % (12.1-15.1); White Blood Count 16.2 10^3/uL (4.0-10.0)
[2021-08-14 06:30] LABS: Glucose Point of Care 184 mg/dL (70-110)
[2021-08-14 06:41] LABS: Anion Gap 14.5 (5-19); Blood Urea Nitrogen 22 mg/dL (8-23); Carbon Dioxide 23 mmol/L (22-29); Chloride 102 mmol/L (98-107); Glucose 187 mg/dL (65-115); Osmolality Calculated 288 mOsm/kg (285-295); Potassium 4.5 mmol/L (3.5-5.1); Sodium 135 mmol/L (136-145)
[2021-08-14] MEDS: sennosides-docusate Tablet 2 TAB PO ×2 (08:00→17:50)
[2021-08-14] MEDS: pregabalin 150 mg Capsule 300 MG PO ×2 (08:01→18:05)
[2021-08-14] MEDS: metoprolol tartrate 50 mg Tablet PO (08:01)
[2021-08-14] MEDS: cholecalciferol (vitamin D3) 1,000 unit Tablet 1000 UNIT PO (08:01)
[2021-08-14] MEDS: aspirin 325 mg EC Tablet PO (08:01)
[2021-08-14] MEDS: calcium carbonate 500 mg Chew Tablet 1000 MG PO ×2 (08:01→17:50)
[2021-08-14] MEDS: lisinopril 20 mg Tablet PO (08:03)
[2021-08-14] MEDS: CELEcoxib 200 mg Capsule PO ×2 (08:03→22:18)
[2021-08-14] MEDS: iron polysaccharide complex 150 mg Capsule PO (08:03)
[2021-08-14] MEDS: atorvastatin 40 mg Tablet PO (08:03)
[2021-08-14] MEDS: multivitamin therapeutic Tablet 1 TAB PO (08:03)
[2021-08-14] MEDS: memantine 5 mg tablet PO ×2 (08:03→17:50)
[2021-08-14] MEDS: amlodipine 5 mg Tablet PO (08:03)
[2021-08-14] MEDS: hydroCHLOROthiazide 25 mg Tablet PO (08:03)
[2021-08-14] MEDS: gabapentin 100 mg Capsule PO ×3 (08:04→22:19)
[2021-08-14] MEDS: chlorhexidine gluconate 0.12% Btl 473 mL 30 ML MUCOUS MEM ×3 (08:09→17:57)
[2021-08-14] MEDS: mupirocin oint 22 gm 1 APPLIC NASAL ×2 (08:09→17:57)
[2021-08-14] MEDS: venlafaxine 75 mg Tablet PO ×2 (08:17→18:06)
[2021-08-14] MEDS: oxyCODONE 5 mg IR Tab/Cap PO ×3 (08:17→17:59)
[2021-08-14] MEDS: vancomycin 1,000 MG in sodium chloride 0.9% 250 ML 250 MG IV ×3 (08:18→23:17)
[2021-08-14] MEDS: insulin lispro 100 unit/1 mL SUBCUT ×2 (08:53→12:53)
--- NOTE | 2021-08-14 10:33 | PC.CHAP ---
Pastoral Care Encounter/Spiritual Assessment Type of Contact [] Declined electrician technician visit [] Patient/Family/Request visit [] Outpatient visit [] Follow-up visit [] Physician referral [] Code/Alert [x] Routine visit [] Staff referral [] Actively dying [] Patient sleeping [] Family support [] [] Out of room [] Palliative care [] [] Receiving care in room [] Pre-surgical visit [] Trauma [] Long length of stay [] ICU visit [] Other: Relational/Emotional Strength [x] Patient feels connected with others/family/visitors/staff [] Distress [] Loneliness/isolation [] Abandonment Spirituality of Patient x[] Person of Kirstin [x] Attends Zoroastrian of their Kirstin [x] Believes in Prayer [] Reads Bible or Catholic materials [] There are Spiritual issues to be addressed Medical Laboratory Technician Interventions [x] Prayer [x] Active listening [x] Non-anxious presence [] Spiritual/emotional support [] Crisis/trauma care [] Spiritual counseling [] Bereavement support [] Provided bereavement packet [] Provided Bible/devotional materials [] Provided toy/stuffed animal, coloring book to patient or family member [] Provided Communion [] Anointing/[place] [] Salvation [x] Completed spiritual assessment [] Other: Impact on Illness or Injury [] Angry [] Fearful [] Anxious [] Often cries [] Exhaustion [] Unable to work [] Unable to attend yarsanism [] Unable to walk/stand [] Unable to read [] Unable to drive [] Unable to eat/drink [] Unable to sleep [] Unable to be with family [] Patient intubated [] Other: Summary patient doing much better today Time spent with patient 19 min
[2021-08-14 12:02] LABS: Glucose Point of Care 251 mg/dL (70-110)
[2021-08-14] MEDS: acetaminophen 1,000 MG/100 ML PIGGYBACK 100 MG IV (12:54)
--- NOTE | 2021-08-14 13:57 | PM.PN ---
Vitals/I&O/Wt Last Vital Signs Temp 98.6 F 08/14/21 11:58 Pulse 68 08/14/21 11:58 Resp 16 08/14/21 12:53 BP 118/63 08/14/21 11:58 Pulse Ox 95 08/14/21 11:58 08/13/21 08/14/21 08/14/21 22:59 06:59 14:59 Intake Total 2330 / 2680 1340 / 4020 240 / 240 Output Total 1500 / 3200 1000 / 4200 500 / 500 Balance 830 / -520 340 / -180 -260 / -260 Weight last 48 hrs Weight 264 lb 3.2 oz Weight 235 lb Physical Exam Urinary Catheter Management^: Spears Latex: Cath Placed During This Visit: yes Reason for Continuing Indwelling Catheter: Perioperative Use in Selected Surgeries Urinary Catheter Date of Insertion: 08/13/21 Urinary Catheter Time of Insertion: 12:05 Data : 08/14/21 05:55 08/14/21 05:55 Micro: Microbiology 08/13/21 10:05 Anaerobic Culture - Preliminary Knee - Left 08/13/21 10:06 Anaerobic Culture - Preliminary Knee - Left 08/13/21 10:05 Gram Stain - Final Knee - Left Tissue Culture - Preliminary 08/13/21 10:06 Gram Stain - Final Knee - Left Wound Culture - Preliminary 08/13/21 07:05 Blood Culture - Preliminary Blood NEGATIVE TO DATE 08/13/21 05:45 Blood Culture - Preliminary Blood NEGATIVE TO DATE Coding Level of Care Code Acute Machinist/Machine Builder for [facility]
--- NOTE | 2021-08-14 16:05 | PM.PN ---
Subjective Subjective: Interval history: Patient's pain under adequate control. Family reports multiple falls at home. Vitals/I&O/Wt Last Vital Signs Temp 98.6 F 08/14/21 11:58 Pulse 77 08/14/21 16:01 Resp 16 08/14/21 16:01 BP 118/63 08/14/21 11:58 Pulse Ox 94 08/14/21 16:01 08/14/21 08/14/21 08/14/21 06:59 14:59 22:59 Intake Total 1340 / 4020 240 / 240 Output Total 1000 / 4200 500 / 500 Balance 340 / -180 -260 / -260 Weight last 48 hrs Weight 264 lb 3.2 oz Weight 235 lb Physical Exam Narrative: EXAM NARRATIVE: Dressing clean and dry Urinary Catheter Management^: Spears Latex: Cath Placed During This Visit: yes Reason for Continuing Indwelling Catheter: Perioperative Use in Selected Surgeries Urinary Catheter Date of Insertion: 08/13/21 Urinary Catheter Time of Insertion: 12:05 Data : 08/14/21 05:55 08/14/21 05:55 Micro: Microbiology 08/13/21 10:05 Anaerobic Culture - Preliminary Knee - Left 08/13/21 10:06 Anaerobic Culture - Preliminary Knee - Left 08/13/21 10:05 Gram Stain - Final Knee - Left Tissue Culture - Preliminary 08/13/21 10:06 Gram Stain - Final Knee - Left Wound Culture - Preliminary 08/13/21 07:05 Blood Culture - Preliminary Blood NEGATIVE TO DATE 08/13/21 05:45 Blood Culture - Preliminary Blood NEGATIVE TO DATE A&P Assessment and plan (1) Status post left knee replacement: Status: Acute (2) Dehiscence of wound: We will continue antibiotics I am not certain the patient is safe at home. Has had multiple falls and been noncompliant with his brace. I have encouraged him strongly to consider halfway. They were fairly adamant that they would want to go home. We will rediscuss this in the morning. Status: Acute Attestations Medical Necessity Statement*: Needs continued and skilled placement Coding Level of Care Code Acute Elevator Service Technician for [address] [facility] Diagnoses Status post left knee replacement Z96.652 Dehiscence of wound T81.30XA
[2021-08-14] MEDS: acetaminophen 500 mg Tablet 1000 MG PO (17:50)
[2021-08-14 18:12] LABS: Glucose Point of Care 169 mg/dL (70-110)
--- NOTE | 2021-08-14 19:01 | P.PN_ITS ---
Subjective Subjective: Interval history: Patient was seen this morning, is currently sitting in a chair, he tells me that his pain is minimal, well controlled, has not had a bowel movement Vitals/I&O/Wt Last Vital Signs Temp 98.5 F 08/14/21 16:00 Pulse 77 08/14/21 16:01 Resp 18 08/14/21 17:59 BP 142/69 08/14/21 16:00 Pulse Ox 94 08/14/21 16:01 08/14/21 08/14/21 08/14/21 06:59 14:59 22:59 Intake Total 1340 / 4020 240 / 240 240 / 480 Output Total 1000 / 4200 500 / 500 Balance 340 / -180 -260 / -260 240 / -20 Weight last 48 hrs Weight 119.839 kg Weight 106.594 kg Physical Exam Const: COMMON NORMALS: no acute distress and patient oriented x3 Resp: COMMON NORMALS: normal respiratory effort, No retractions, No use of accessory muscles and clear to auscultation bilaterally AUSCULTATION: clear to auscultation bilaterally Cardio: COMMON NORMALS: regular rate, regular rhythm, S1 normal heart sound present and S2 normal heart sound present RATE: regular rate RHYTHM: regular rhythm HEART SOUNDS: S1 normal heart sound present and S2 normal heart sound present GI: COMMON NORMALS: Normal to inspection, nondistended, normoactive bowel sounds present, Soft to palpation and non-tender PALPATION: Yes Soft to palp ation Extremity: NARRATIVE EXTREMITY EXAM: Left lower extremity in a binder Neuro: COMMON NORMALS: patient oriented x3 Psych: COMMON NORMALS: mental status grossly normal Urinary Catheter Management^: Spears Latex: Cath Placed During This Visit: yes Reason for Continuing Indwelling Catheter: Perioperative Use in Selected Surgeries Urinary Catheter Date of Insertion: 08/13/21 Urinary Catheter Time of Insertion: 12:05 Data : 08/14/21 05:55 08/14/21 05:55 Micro: Microbiology 08/13/21 10:05 Anaerobic Culture - Preliminary Knee - Left 08/13/21 10:06 Anaerobic Culture - Preliminary Knee - Left 08/13/21 10:05 Gram Stain - Final Knee - Left Tissue Culture - Preliminary 08/13/21 10:06 Gram Stain - Final Knee - Left Wound Culture - Preliminary 08/13/21 07:05 Blood Culture - Preliminary Blood NEGATIVE TO DATE 08/13/21 05:45 Blood Culture - Preliminary Blood NEGATIVE TO DATE A&P Assessment and plan (1) Dehiscence of wound: -Status post Left knee irrigation and debridement of wound dehiscence into the knee joint with revision of tibial polyethylene, complete synovectomy, medial retinacular repair, and repair of quadriceps tendon tear, complete -DVT prophylaxis aspirin -PT OT -Pain control oxycodone, Lyrica Type 2 diabetes mellitus, continue glargine, insulin sliding scale Hypertension, continue lispro Status: Acute (2) History of knee replacement, total: Status: Acute (3) Cellulitis: Status: Acute (4) Status post left knee replacement: Status: Acute Attestations Medical Necessity Statement*: Patient requires hospitalization for wound dehiscence, Coding Level of Care 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
[2021-08-14 21:33] LABS: Glucose Point of Care 276 mg/dL (70-110)
[2021-08-14] MEDS: insulin glargine 100 units/1 mL 30 UNIT SUBCUT (22:18)
[2021-08-15 00:29] VITALS: BP 153/68; PULSE 87; RESP 16; TEMP 37; O2SAT 92
[2021-08-15] MEDS: acetaminophen 500 mg Tablet 1000 MG PO ×2 (02:23→08:20)
[2021-08-15 04:10] VITALS: BP 175/63; PULSE 84; RESP 16; TEMP 36.6; O2SAT 93
[2021-08-15 06:20] LABS: Basophils # 0.1 10^3/uL (0.0-0.1); Basophils % 0.8 %; Eosinophils # 0.4 10^3/uL (0.0-0.8); Hematocrit 34.5 % (42.0-52.0); Hemoglobin 11.1 g/dL (11.7-16.6); Lymphocytes # 2.5 10^3/uL (0.8-4.8); Lymphocytes % 18.3 %; Mean Corpuscular HGB Conc 32.2 g/dL (30.0-36.0); Mean Corpuscular Hemoglobin 30.2 pg (28.0-34.0); Mean Platelet Volume 11.5 fL (7.4-10.4); Monocytes # 1.4 10^3/uL (0.2-0.9); Monocytes % 9.9 %; Neutrophils # 9.13 10^3/uL (1.8-7.7); Neutrophils % 67.3 %; Nucleated Red Blood Cells % 0 %; Platelet Count 356 10^3/cmm (130-400); Red Blood Count 3.67 10^6/uL (4.1-5.3); Red Cell Distribution Width 13.7 % (12.1-15.1); White Blood Count 13.6 10^3/uL (4.0-10.0)
[2021-08-15 06:32] LABS: Alanine Aminotransferase 20 U/L (0-41); Albumin Level 3.6 g/dL (3.5-5.2); Alkaline Phosphatase 61 IU/L (40-130); Anion Gap 18.4 (5-19); Aspartate Amino Transferase 32 U/L (0-40); Blood Urea Nitrogen 18 mg/dL (8-23); C Reactive Protein 30.6 mg/L (0.0-4.9); Calcium 8.6 mg/dL (8.5-10.5); Carbon Dioxide 22 mmol/L (22-29); Chloride 102 mmol/L (98-107); Glucose 189 mg/dL (65-115); Magnesium 1.5 mg/dL (1.7-2.3); Osmolality Calculated 293 mOsm/kg (285-295); Potassium 4.4 mmol/L (3.5-5.1); Sodium 138 mmol/L (136-145); Total Bilirubin 0.4 mg/dL (0.15-1.2); Total Protein 6.6 g/dL (6.6-8.7)
[2021-08-15 06:46] LABS: NT Pro B Type Natriuretic Pept 86 pg/mL (0-450); Procalcitonin 0.19 ng/mL (0-0.5)
[2021-08-15 06:50] LABS: Glucose Point of Care 185 mg/dL (70-110)
[2021-08-15 07:46] VITALS: BP 166/78; PULSE 85; RESP 14; TEMP 36.7; O2SAT 94
[2021-08-15] MEDS: polyethylene glycol 3350 Pkt 17 gm PO (08:19)
[2021-08-15] MEDS: cholecalciferol (vitamin D3) 1,000 unit Tablet 1000 UNIT PO (08:20)
[2021-08-15] MEDS: sennosides-docusate Tablet 2 TAB PO ×2 (08:20→16:56)
[2021-08-15] MEDS: metoprolol tartrate 50 mg Tablet PO (08:20)
[2021-08-15] MEDS: venlafaxine 75 mg Tablet PO ×2 (08:20→16:56)
[2021-08-15] MEDS: calcium carbonate 500 mg Chew Tablet 1000 MG PO ×2 (08:20→16:55)
[2021-08-15] MEDS: multivitamin therapeutic Tablet 1 TAB PO (08:21)
[2021-08-15] MEDS: amlodipine 5 mg Tablet PO (08:21)
[2021-08-15] MEDS: iron polysaccharide complex 150 mg Capsule PO ×2 (08:21→16:55)
[2021-08-15] MEDS: pregabalin 150 mg Capsule 300 MG PO ×2 (08:21→16:55)
[2021-08-15] MEDS: memantine 5 mg tablet PO ×2 (08:21→16:55)
[2021-08-15] MEDS: gabapentin 100 mg Capsule PO ×3 (08:21→21:51)
[2021-08-15] MEDS: atorvastatin 40 mg Tablet PO (08:21)
[2021-08-15] MEDS: CELEcoxib 200 mg Capsule PO ×2 (08:21→21:51)
[2021-08-15] MEDS: lisinopril 20 mg Tablet PO (08:21)
[2021-08-15] MEDS: hydroCHLOROthiazide 25 mg Tablet PO (08:21)
[2021-08-15] MEDS: mupirocin oint 22 gm 1 APPLIC NASAL ×2 (08:22→16:56)
[2021-08-15] MEDS: insulin lispro 100 unit/1 mL SUBCUT ×2 (08:22→12:07)
[2021-08-15] MEDS: chlorhexidine gluconate 0.12% Btl 473 mL 30 ML MUCOUS MEM ×4 (08:22→21:52)
[2021-08-15] MEDS: aspirin 325 mg EC Tablet PO (08:22)
[2021-08-15 09:12] LABS: Vancomycin Trough 14.2 ug/mL (10-15)
[2021-08-15] MEDS: vancomycin 1,000 MG in sodium chloride 0.9% 250 ML 250 MG IV ×3 (09:36→22:26)
[2021-08-15 11:36] VITALS: BP 141/68; PULSE 65; RESP 16; TEMP 36.6; O2SAT 94
[2021-08-15 12:15] LABS: Glucose Point of Care 215 mg/dL (70-110)
[2021-08-15 14:42] VITALS: RESP 16
[2021-08-15] MEDS: oxyCODONE 5 mg IR Tab/Cap PO (14:42)
--- NOTE | 2021-08-15 15:32 | P.PN_ITS ---
Subjective Subjective: Interval history: Pain well-tolerated. No complaints regarding left knee. Vitals/I&O/Wt Last Vital Signs Temp 97.9 F 08/15/21 11:36 Pulse 65 08/15/21 11:36 Resp 16 08/15/21 14:42 BP 141/68 08/15/21 11:36 Pulse Ox 94 08/15/21 11:36 08/15/21 08/15/21 08/15/21 06:59 14:59 22:59 Intake Total 1350 / 2330 240 / 240 250 / 490 Output Total 1700 / 2800 375 / 375 Balance -350 / -470 -135 / -135 250 / 115 Weight last 48 hrs Weight 264 lb 3.2 oz Physical Exam Narrative: EXAM NARRATIVE: Dressing clean and dry. Brace readjusted Urinary Catheter Management^: Spears Latex: Cath Placed During This Visit: yes Reason for Continuing Indwelling Catheter: Perioperative Use in Selected Surgeries Urinary Catheter Date of Insertion: 08/13/21 Urinary Catheter Time of Insertion: 12:05 Data : 08/15/21 05:41 08/15/21 05:41 Micro: Microbiology 08/13/21 10:06 Gram Stain - Final Knee - Left Wound Culture - Preliminary 08/13/21 10:05 Gram Stain - Final Knee - Left Tissue Culture - Preliminary 08/13/21 10:05 Anaerobic Culture - Preliminary Knee - Left 08/13/21 10:06 Anaerobic Culture - Preliminary Knee - Left A&P Assessment and plan (1) Status post left knee replacement: Status: Acute (2) Dehiscence of wound: Status: Acute (3) Rupture of left quadriceps tendon: Cultures to this point negative. Patient has been unreliable with bracing. Unfortunately he is a number of falls. I think the safest thing would be to lock him in his brace in full extension for 4 weeks. We can begin some gentle motion at that time. He may be full weightbearing in his brace and perform a straight leg raises.. Status: Acute Attestations Medical Necessity Statement*: Discharge home once cultures negative. 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
[2021-08-15 16:57] LABS: Glucose Point of Care 147 mg/dL (70-110)
--- NOTE | 2021-08-15 17:18 | PM.PN ---
Subjective Subjective: Interval history: Patient was seen this morning, is at bedside, patient is agreeable to go to a care home, he has had multiple falls, he wants rehab after his fall, Vitals/I&O/Wt Last Vital Signs Temp 97.9 F 08/15/21 11:36 Pulse 65 08/15/21 11:36 Resp 16 08/15/21 14:42 BP 141/68 08/15/21 11:36 Pulse Ox 94 08/15/21 11:36 08/15/21 08/15/21 08/15/21 06:59 14:59 22:59 Intake Total 1350 / 2330 240 / 240 250 / 490 Output Total 1700 / 2800 375 / 375 275 / 650 Balance -350 / -470 -135 / -135 -25 / -160 Weight last 48 hrs Weight 119.839 kg Physical Exam Const: COMMON NORMALS: no acute distress and patient oriented x3 Resp: COMMON NORMALS: normal respiratory effort, No retractions, No use of accessory muscles and clear to auscultation bilaterally AUSCULTATION: clear to auscultation bilaterally Cardio: COMMON NORMALS: regular rate, regular rhythm, S1 normal heart sound present and S2 normal heart sound present RATE: regular rate RHYTHM: regular rhythm HEART SOUNDS: S1 normal heart sound present and S2 normal heart sound present GI: COMMON NORMALS: Normal to inspection, nondistended, normoactive bowel sounds present, Soft to palpation and non-tender PALPATION: Yes Soft to palpation Extremity: COMMON NORMALS: no pedal edema NARRATIVE EXTREMITY EXAM: Left lower extremity, in a binder Neuro: COMMON NORMALS: patient oriented x3 Psych: COMMON NORMALS: mental status grossly normal Urinary Catheter Management^: Spears Latex: Cath Placed During This Visit: yes Reason for Continuing Indwelling Catheter: Perioperative Use in Selected Surgeries Urinary Catheter Date of Insertion: 08/13/21 Urinary Catheter Time of Insertion: 12:05 Data : 08/15/21 05:41 08/15/21 05:41 Micro: Microbiology 08/13/21 10:06 Anaerobic Culture - Preliminary Knee - Left 08/13/21 10:05 Anaerobic Culture - Preliminary Knee - Left 08/13/21 10:06 Gram Stain - Final Knee - Left Wound Culture - Preliminary 08/13/21 10:05 Gram Stain - Final Knee - Left Tissue Culture - Preliminary A&P Assessment and plan (1) Dehiscence of wound: -Status post: Left knee irrigation and debridement of wound dehiscence into the knee joint with revision of tibial polyethylene, complete synovectomy, medial retinacular repair, and repair of quadriceps tendon tear, by Dr. 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
[2021-08-15 19:49] LABS: Glucose Point of Care 150 mg/dL (70-110)
[2021-08-15] MEDS: insulin glargine 100 units/1 mL 30 UNIT SUBCUT (21:51)
[2021-08-16] VITALS (7 sets, daily range): BP systolic 95–176; BP diastolic 59–92; PULSE 67–94; RESP 17–18; TEMP 36.8–37.1; O2SAT 92–95
[2021-08-16] MEDS: acetaminophen 500 mg Tablet 1000 MG PO ×3 (01:55→17:21)
[2021-08-16 06:56] LABS: Glucose Point of Care 165 mg/dL (70-110)
[2021-08-16 07:06] LABS: Basophils # 0.1 10^3/uL (0.0-0.1); Basophils % 1.1 %; Eosinophils # 0.5 10^3/uL (0.0-0.8); Eosinophils % 4.1 %; Hematocrit 34.7 % (42.0-52.0); Hemoglobin 11.2 g/dL (11.7-16.6); Lymphocytes # 2.6 10^3/uL (0.8-4.8); Lymphocytes % 21.2 %; Mean Corpuscular HGB Conc 32.3 g/dL (30.0-36.0); Mean Corpuscular Hemoglobin 30.2 pg (28.0-34.0); Mean Corpuscular Volume 93.5 fl (80-94); Mean Platelet Volume 11.5 fL (7.4-10.4); Monocytes # 1.5 10^3/uL (0.2-0.9); Monocytes % 12.4 %; Neutrophils # 7.48 10^3/uL (1.8-7.7); Neutrophils % 60.5 %; Nucleated Red Blood Cells % 0 %; Platelet Count 400 10^3/cmm (130-400); Red Blood Count 3.71 10^6/uL (4.1-5.3); Red Cell Distribution Width 13.4 % (12.1-15.1); White Blood Count 12.4 10^3/uL (4.0-10.0)
[2021-08-16 07:29] LABS: Alanine Aminotransferase 17 U/L (0-41); Albumin Level 3.6 g/dL (3.5-5.2); Alkaline Phosphatase 66 IU/L (40-130); Anion Gap 16.2 (5-19); Aspartate Amino Transferase 24 U/L (0-40); Blood Urea Nitrogen 18 mg/dL (8-23); C Reactive Protein 54.9 mg/L (0.0-4.9); Calcium 8.6 mg/dL (8.5-10.5); Carbon Dioxide 26 mmol/L (22-29); Chloride 99 mmol/L (98-107); Globulin 3.2 g/dL (1.3-4.6); Glucose 154 mg/dL (65-115); Magnesium 1.6 mg/dL (1.7-2.3); Osmolality Calculated 289 mOsm/kg (285-295); Phosphorus 4.8 mg/dL (2.5-4.5); Potassium 4.2 mmol/L (3.5-5.1); Sodium 137 mmol/L (136-145); Total Bilirubin 0.5 mg/dL (0.15-1.2); Total Protein 6.8 g/dL (6.6-8.7)
[2021-08-16 07:36] LABS: NT Pro B Type Natriuretic Pept 41 pg/mL (0-450); Procalcitonin 0.15 ng/mL (0-0.5)
[2021-08-16] MEDS: metoprolol tartrate 50 mg Tablet PO (09:04)
[2021-08-16] MEDS: lisinopril 20 mg Tablet PO (09:04)
[2021-08-16] MEDS: amlodipine 5 mg Tablet PO (09:04)
[2021-08-16] MEDS: cholecalciferol (vitamin D3) 1,000 unit Tablet 1000 UNIT PO (09:05)
[2021-08-16] MEDS: aspirin 325 mg EC Tablet PO (09:05)
[2021-08-16] MEDS: memantine 5 mg tablet PO ×2 (09:05→17:22)
[2021-08-16] MEDS: pregabalin 150 mg Capsule 300 MG PO ×2 (09:05→17:22)
[2021-08-16] MEDS: hydroCHLOROthiazide 25 mg Tablet PO (09:05)
[2021-08-16] MEDS: iron polysaccharide complex 150 mg Capsule PO ×2 (09:05→17:22)
[2021-08-16] MEDS: CELEcoxib 200 mg Capsule PO ×2 (09:05→20:25)
[2021-08-16] MEDS: polyethylene glycol 3350 Pkt 17 gm PO (09:05)
[2021-08-16] MEDS: gabapentin 100 mg Capsule PO ×3 (09:05→20:25)
[2021-08-16] MEDS: atorvastatin 40 mg Tablet PO (09:06)
[2021-08-16] MEDS: calcium carbonate 500 mg Chew Tablet 1000 MG PO ×2 (09:06→17:22)
[2021-08-16] MEDS: multivitamin therapeutic Tablet 1 TAB PO (09:06)
[2021-08-16] MEDS: sennosides-docusate Tablet 2 TAB PO (09:06)
[2021-08-16] MEDS: venlafaxine 75 mg Tablet PO ×2 (09:10→17:23)
[2021-08-16] MEDS: insulin lispro 100 unit/1 mL SUBCUT ×2 (09:11→13:03)
[2021-08-16] MEDS: oxyCODONE 5 mg IR Tab/Cap PO ×2 (09:18→13:05)
[2021-08-16 11:22] LABS: Glucose Point of Care 214 mg/dL (70-110)
--- NOTE | 2021-08-16 12:40 | PM.PN ---
Subjective Subjective: Interval history: El has little pain in his knee. Vitals/I&O/Wt Last Vital Signs Temp 98.4 F 08/16/21 15:09 Pulse 67 08/16/21 15:09 Resp 17 08/16/21 15:09 BP 95/59 08/16/21 15:09 Pulse Ox 94 08/16/21 15:09 08/16/21 08/16/21 08/16/21 06:59 14:59 22:59 Intake Total 490 / 1470 720 / 720 Output Total 950 / 1925 Balance -460 / -455 720 / 720 Physical Exam Narrative: EXAM NARRATIVE: His incision is free of drainage. There is minimal swelling in the knee and calf Urinary Catheter Management^: Spears Latex: Cath Placed During This Visit: yes Reason for Continuing Indwelling Catheter: Perioperative Use in Selected Surgeries Urinary Catheter Date of Insertion: 08/13/21 Urinary Catheter Time of Insertion: 12:05 Data : 08/16/21 06:33 08/16/21 06:33 Micro: Microbiology 08/13/21 10:06 Gram Stain - Final Knee - Left Wound Culture - Final 08/13/21 10:05 Gram Stain - Final Knee - Left Tissue Culture - Final 08/13/21 10:06 Anaerobic Culture - Preliminary Knee - Left 08/13/21 10:05 Anaerobic Culture - Preliminary Knee - Left A&P Assessment and plan (1) Dehiscence of wound: Operative cultures are negative. Certainly there is a risk of infection and the family was made aware of this. Status: Acute (2) History of knee replacement, total: Status: Acute (3) Rupture of left quadriceps tendon: We will need to protect her proximal quadriceps repair. He can weight-bear as tolerated with his brace locked in extension. I will see him back in 2 weeks for stitch removal. Status: Acute Attestations Medical Necessity Statement*: Okay for discharge per Ortho. 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
--- NOTE | 2021-08-16 14:04 | PC.SOCIAL ---
Pg 2 IMM Explained to pt & Pg 2 IMM. No questions voiced. Provided pt a copy. Initialed, dated, & timed a copy & placed in chart.
--- NOTE | 2021-08-16 14:15 | P.DS_ITS ---
Discharge Providers Date of Admission: 08/13/21 10:23 Date of Discharge: August 17, 2021 Attending Provider at Admission: Annie Sky MD Attending Provider at Discharge: Nathan Ayala MD Primary Care Provider: TANMAY Rangel Diagnoses at Discharge Discharge Diagnosis (1) Dehiscence of wound: Status: Acute (2) History of knee replacement, total: Status: Acute (3) Cellulitis: Status: Acute (4) Status post left knee replacement: Status: Acute Reason for Visit Reason for Visit: LEFT KNEE PAIN Hospital Course Hospital Course This is a 81-year-old male with a past medical history hypertension, insulin- dependent type 2 diabetes mellitus, who presents to [facility] for recent history of left total knee arthroplasty, now with a fall leading to wound dehiscence -Patient received left knee irrigation and debridement of wound dehiscence, -with revision of tibial polyethylene, complete synovectomy, medial retinacular repair, and repair of quadriceps tendon tear, by Dr. Sky -Managed with broad-spectrum antibiotic therapy, vancomycin -Wound cultures anaerobic cultures so far have no growth -Remain afebrile, clinically improving -Discharged on 7 remaining days of Bactrim -Follow-up with Dr. Ayala in 1 week -Aspirin for DVT prophylaxis -Oxycodone for pain control -Discharged to [facility] Physical Exam Const: COMMON NORMALS: no acute distress and patient oriented x3 Resp: COMMON NORMALS: normal respiratory effort, No retractions, No use of accessory muscles and clear to auscultation bilaterally AUSCULTATION: clear to auscultation bilaterally Cardio: COMMON NORMALS: regular rate, regular rhythm, S1 normal heart sound present and S2 normal heart sound present RATE: regular rate RHYTHM: regular rhythm HEART SOUNDS: S1 normal heart sound present and S2 normal he art sound present GI: COMMON NORMALS: Normal to inspection, nondistended, normoactive bowel sounds present, Soft to palpation and non-tender PALPATION: Yes Soft to palpation Neuro: COMMON NORMALS: patient oriented x3 Psych: COMMON NORMALS: mental status grossly normal Urinary Catheter Management^: Spears Latex: Cath Placed During This Visit: yes Reason for Continuing Indwelling Catheter: Perioperative Use in Selected Surgeries Urinary Catheter Date of Insertion: 08/13/21 Urinary Catheter Time of Insertion: 12:05 Discharge Data Data Completed and Pending: Completed Studies During Hospitalization Category Date Time Status XR knee LT 1-2V 7 3560 Urgent Exams 08/13/21 12:43 Completed XR knee LT 3V* 73 562 Stat Exams 08/13/21 05:45 Completed Pending at discharge Category Date Time Status Anaerobic Culture Routine Lab 08/13/21 10:05 Results Anaerobic Culture Routine Lab 08/13/21 10:06 Results Blood Culture Sta t Lab 08/13/21 07:05 Results C Reactive Protei n AM LABS Lab 08/17/21 04:00 Ordered Complete Blood Co unt w/Auto AM LABS Lab 08/17/21 04:00 Ordered Comprehensive Met abolic Panel AM LA BS Lab 08/17/21 04:00 Ordered Magnesium AM LABS Lab 08/17/21 04:00 Ordered NT Pro B Type Erendira riuretic Pept QAM Lab 08/17/21 06:00 Ordered Phosphorus AM LAB S Lab 08/17/21 04:00 Ordered Procalcitonin AM LABS Lab 08/17/21 04:00 Ordered Labs from last 24 hours 08/16/21 08/16/21 08/16/21 11:02 06:33 06:33 WBC RBC Hgb Hct MCV MCH MCHC RDW Plt Count MPV Neut % (Auto) Lymph % (Auto) [place] % (Auto) Eos % (Auto) Baso % (Auto) Neut # (Auto) Lymph # (Auto) [place] # (Auto) Eos # (Auto) Baso # (Auto) Nucleated RBC % (a uto) Nucleated RBCs # Sodium 137 Potassium 4.2 Chloride 99 Carbon Dioxide 26 Anion Gap 16.2 BUN 18 Creatinine 1.0 GFR Calculation Not Reportable Glucose 154 H POC Glucose 214 H Calculated Osmolal ity 289 Calcium 8.6 Phosphorus 4.8 H Magnesium 1.6 L Total Bilirubin 0.5 AST 24 ALT 17 Alkaline Phosphata se 66 C-Reactive Protein 54.9 H NT-Pro-B Natriuret Pep 41 Total Protein 6.8 Albumin 3.6 Globulin 3.2 Procalcitonin 0.15 08/16/21 08/16/21 08/15/21 06:33 06:27 19:28 WBC 12.4 H RBC 3.71 L Hgb 11.2 L Hct 34.7 L MCV 93.5 MCH 30.2 MCHC 32.3 RDW 13.4 Plt Count 400 MPV 11.5 H Neut % (Auto) 60.5 Lymph % (Auto) 21.2 Roosevelt % (Auto) 12.4 Eos % (Auto) 4.1 Baso % (Auto) 1.1 Neut # (Auto) 7.48 Lymph # (Auto) 2.6 Roosevelt # (Auto) 1.5 H Eos # (Auto) 0.5 Baso # (Auto) 0.1 Nucleated RBC % (a uto) 0 Nucleated RBCs # 0.0 Sodium Potassium Chloride Carbon Dioxide Anion Gap BUN Creatinine GFR Calculation Glucose POC Glucose 165 H 150 H Calculated Osmolal ity Calcium Phosphorus Magnesium Total Bilirubin AST ALT Alkaline Phosphata se C-Reactive Protein NT-Pro-B Natriuret Pep Total Protein Albumin Globulin Procalcitonin 08/15/21 16:16 WBC RBC Hgb Hct MCV MCH MCHC RDW Plt Count MPV Neut % (Auto) Lymph % (Auto) Roosevelt % (Auto) Eos % (Auto) Baso % (Auto) Neut # (Auto) Lymph # (Auto) Roosevelt # (Auto) Eos # (Auto) Baso # (Auto) Nucleated RBC % (a uto) Nucleated RBCs # Sodium Potassium Chloride Carbon Dioxide Anion Gap BUN Creatinine GFR Calculation Glucose POC Glucose 147 H Calculated Osmolal ity Calcium Phosphorus Magnesium Total Bilirubin AST ALT Alkaline Phosphata se C-Reactive Protein NT-Pro-B Natriuret Pep Total Protein Albumin Globulin Procalcitonin Vitals: Last Vital Signs Temp 98.7 F 08/16/21 11:31 Pulse 67 08/16/21 11:31 Resp 18 08/16/21 13:05 BP 119/65 08/16/21 11:31 Pulse Ox 94 08/16/21 11:31 Discharge Plan Discharge Patient Disposition: Xfer SNF Condition: Stable Prescriptions: New celecoxib 200 mg Capsule 200 mg PO Q12H PRN (Reason: pain) 30 Days Qty: 60 RF: 0 Ferrex 150 150 mg iron Capsule 150 mg PO BIDWM 30 Days Qty: 60 RF: 0 aspirin 325 mg Tablet,Delayed Release (Dr/Ec) 325 mg PO DAILY 30 Days Qty: 30 RF: 0 cholecalciferol (vitamin D3) 25 mcg (1,000 unit) Tablet 1,000 unit PO DAILY 30 Days Qty: 60 RF: 0 Thera 400 mcg Tablet 1 tab PO DAILY 30 Days Qty: 30 RF: 0 Bactrim DS 800-160 mg tablet 1 tab PO BID 7 Days Qty: 14 RF: 0 oxycodone 5 mg tablet 5 mg PO Q6H PRN (Reason: pain) 7 Days Qty: 28 RF: 0 Continued omega-3 fatty acids 500 mg capsule 500 mg PO BID RF: 0 venlafaxine 75 mg tablet 75 mg PO BID RF: 0 lovastatin 40 mg tablet 40 mg PO DAILY RF: 0 amlodipine 5 mg tablet 5 mg PO DAILY RF: 0 benazepril 20 mg tablet 20 mg PO DAILY RF: 0 hydrochlorothiazide 25 mg tablet 25 mg PO DAILY RF: 0 metformin 1,000 mg tablet 1,000 mg PO BID RF: 0 memantine 5 mg tablet 5 mg PO BID RF: 0 pregabalin 200 mg capsule 300 mg PO BID RF: 0 insulin aspart U-100 [Novolog U-100 Insulin aspart] 100 unit/mL solution 10 unit SUBCUT TID RF: 0 metoprolol tartrate 50 mg tablet 50 mg PO DAILY RF: 0 (DME) knee immobilizer See Rx Instructions .Route .MEDSUPPLY Qty: 1 RF: 0 mupirocin 2 % ointment 1 applic topical BID Qty: 15 RF: 0 gabapentin 100 mg capsule 100 mg PO TID Qty: 90 RF: 0 cholecalciferol (vitamin D3) [Vitamin D3] 50 mcg (2,000 unit) Tablet 50 mcg PO DAILY RF: 0 acetaminophen 500 mg Tablet 1,000 mg PO Q8H 14 Days Qty: 84 RF: 0 Changed Lantus Solostar U-100 Insulin 100 unit/mL (3 mL) Insulin Pen 30 unit SUBCUT QPM Qty: 0 RF: 0 Discontinued aspirin [Adult Low Dose Aspirin] 81 mg tablet,delayed release (DR/EC) 81 mg PO DAILY RF: 0 celecoxib 200 mg Capsule 200 mg PO Q12H 14 Days Qty: 28 RF: 0 Discharge Orders: Discharge Order (Routine); Ordered 08/16/21 Ordered By: Mario Livingston Other Ambulatory Orders: DME: [employer] (Order) Location: None Selected Ordered By: Mario Livingston Referrals: Christiana Holley FNP [Primary Care Provider] - Nathan Ayala MD [Physician] - 2 weeks Discharge Diet: Cardiac Discharge Activity: Resume usual activity Activity Restrictions/Additional Instructions: -Use oxycodone sparingly for pain control -PT OT -Monitor blood sugars closely Discharge Attestations Time Spent in Discharge Care*: less than 30 min Quality Metrics Clinical Quality Measures During this hospital stay, did patient experience: None Coding Level of Care Code Acute g DC note Exam Detailed Diagnoses Dehiscence of wound T81.30XA History of knee replacement, total Z96.659 Cellulitis L03.90 Status post left knee replacement Z96.652
--- NOTE | 2021-08-16 16:53 | P.PN_ITS ---
Subjective Subjective: Interval history: patient was seen this morning, he has had bowel movement yesterday, no fever overnight, no nausea, no vommiting Vitals/I&O/Wt Last Vital Signs Temp 98.4 F 08/16/21 15:09 Pulse 67 08/16/21 15:09 Resp 17 08/16/21 15:09 BP 95/59 08/16/21 15:09 Pulse Ox 94 08/16/21 15:09 08/16/21 08/16/21 08/16/21 06:59 14:59 22:59 Intake Total 490 / 1470 720 / 720 Output Total 950 / 1925 Balance -460 / -455 720 / 720 Physical Exam Const: COMMON NORMALS: no acute distress and patient oriented x3 Resp: COMMON NORMALS: normal respiratory effort, No retractions, No use of accessory muscles and clear to auscultation bilaterally AUSCULTATION: clear to auscultation bilaterally Cardio: COMMON NORMALS: regular rate, regular rhythm, S1 normal heart sound present and S2 normal heart sound present RATE: regular rate RHYTHM: regul ar rhythm HEART SOUNDS: S1 normal heart sound present and S2 normal heart sound present GI: COMMON NORMALS: Normal to inspection, nondistended, normoactive bowel sounds present, Soft to palpation and non-tender PALPATION: Yes Soft to palpation Extremity: COMMON NORMALS: no pedal edema NARRATIVE EXTREMITY EXAM: Left lower extremity, in a binder Neuro: COMMON NORMALS: patient oriented x3 Psych: COMMON NORMALS: mental status grossly normal Urinary Catheter Management^: Spears Latex: Cath Placed During This Visit: yes Reason for Continuing Indwelling Catheter: Perioperative Use in Selected Surgeries Urinary Catheter Date of Insertion: 08/13/21 Urinary Catheter Time of Insertion: 12:05 Data : 08/16/21 06:33 08/16/21 06:33 Micro: Microbiology 08/13/21 10:05 Anaerobic Culture - Preliminary Knee - Left 08/13/21 10:06 Anaerobic Culture - Preliminary Knee - Left 08/13/21 10:06 Gram Stain - Final Knee - Left Wound Culture - Final 08/13/21 10:05 Gram Stain - Final Knee - Left Tissue Culture - Final A&P Assessment and plan (1) Dehiscence of wound: -Status post: Left knee irrigation and debridement of wound dehiscence into the knee joint wit h revision of tibial polyethylene, complete synovectomy, medial retinacular repair, and repair of quadriceps tendon tear, by Dr. 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
[2021-08-16 17:00] LABS: Glucose Point of Care 141 mg/dL (70-110)
[2021-08-16 17:29] LABS: Adenovirus Not Detected (NOT DETECT); Chlamydia Pneumoniae Not Detected (NOT DETECT); Coronavirus 229E,HKU1,NL63,OC4 Not Detected (NOT DETECT); Human Metapneumovirus Not Detected (NOT DETECT); Human Rhinovirus/Enterovirus Not Detected (NOT DETECT); Influenza A Not Detected (NOT DETECT); Influenza A H1 Not Detected (NOT DETECT); Influenza A H1-2009 Not Detected (NOT DETECT); Influenza A H3 Not Detected (NOT DETECT); Influenza B Not Detected (NOT DETECT); Mycoplasma Pneumoniae Not Detected (NOT DETECT); Parainfluenza Virus Type 1 Not Detected (NOT DETECT); Parainfluenza Virus Type 2 Not Detected (NOT DETECT); Parainfluenza Virus Type 3 Not Detected (NOT DETECT); Parainfluenza Virus Type 4 Not Detected (NOT DETECT); Respiratory Syncytial Virus A Not Detected (NOT DETECT); Respiratory Syncytial Virus B Not Detected (NOT DETECT); SARS-COV-2 Not Detected (NOT DETECT)
--- NOTE | 2021-08-16 19:11 | PC.NURSE ---
Report to Jose Carlos AGUILAR at this time.
[2021-08-16 21:53] LABS: Glucose Point of Care 193 mg/dL (70-110)
[2021-08-16] MEDS: insulin glargine 100 units/1 mL 30 UNIT SUBCUT (22:31)
[2021-08-16] MEDS: vancomycin 1,000 MG in sodium chloride 0.9% 250 ML 250 MG IV (22:35)
[2021-08-17] VITALS (7 sets, daily range): BP systolic 109–154; BP diastolic 62–87; PULSE 62–90; RESP 16–19; TEMP 36.5–36.9; O2SAT 94–97
[2021-08-17] MEDS: acetaminophen 500 mg Tablet 1000 MG PO (01:26)
[2021-08-17 06:35] LABS: Basophils # 0.1 10^3/uL (0.0-0.1); Basophils % 0.7 %; Eosinophils # 0.6 10^3/uL (0.0-0.8); Eosinophils % 5.1 %; Hematocrit 35.3 % (42.0-52.0); Hemoglobin 11.3 g/dL (11.7-16.6); Lymphocytes # 2.7 10^3/uL (0.8-4.8); Lymphocytes % 22.7 %; Mean Corpuscular Hemoglobin 30.7 pg (28.0-34.0); Mean Corpuscular Volume 95.9 fl (80-94); Mean Platelet Volume 11.7 fL (7.4-10.4); Monocytes # 1.5 10^3/uL (0.2-0.9); Monocytes % 12.7 %; Neutrophils # 6.85 10^3/uL (1.8-7.7); Neutrophils % 58.1 %; Nucleated Red Blood Cells % 0 %; Platelet Count 424 10^3/cmm (130-400); Red Blood Count 3.68 10^6/uL (4.1-5.3); Red Cell Distribution Width 13.5 % (12.1-15.1); White Blood Count 11.8 10^3/uL (4.0-10.0)
[2021-08-17 06:44] LABS: Glucose Point of Care 191 mg/dL (70-110)
[2021-08-17 07:02] LABS: Alanine Aminotransferase 16 U/L (0-41); Albumin Level 3.6 g/dL (3.5-5.2); Alkaline Phosphatase 73 IU/L (40-130); Anion Gap 19.3 (5-19); Aspartate Amino Transferase 22 U/L (0-40); Blood Urea Nitrogen 22 mg/dL (8-23); C Reactive Protein 52.2 mg/L (0.0-4.9); Calcium 8.3 mg/dL (8.5-10.5); Carbon Dioxide 24 mmol/L (22-29); Chloride 99 mmol/L (98-107); Globulin 2.8 g/dL (1.3-4.6); Glucose 165 mg/dL (65-115); Magnesium 1.9 mg/dL (1.7-2.3); Osmolality Calculated 293 mOsm/kg (285-295); Potassium 4.3 mmol/L (3.5-5.1); Sodium 138 mmol/L (136-145); Total Bilirubin 0.4 mg/dL (0.15-1.2); Total Protein 6.4 g/dL (6.6-8.7)
[2021-08-17 08:02] LABS: NT Pro B Type Natriuretic Pept 14 pg/mL (0-450); Procalcitonin 0.12 ng/mL (0-0.5)
[2021-08-17] MEDS: cholecalciferol (vitamin D3) 1,000 unit Tablet 1000 UNIT PO (08:32)
[2021-08-17] MEDS: venlafaxine 75 mg Tablet PO (08:32)
[2021-08-17] MEDS: CELEcoxib 200 mg Capsule PO (08:32)
[2021-08-17] MEDS: multivitamin therapeutic Tablet 1 TAB PO (08:32)
[2021-08-17] MEDS: aspirin 325 mg EC Tablet PO (08:32)
[2021-08-17] MEDS: polyethylene glycol 3350 Pkt 17 gm PO (08:32)
[2021-08-17] MEDS: sennosides-docusate Tablet 2 TAB PO (08:32)
[2021-08-17] MEDS: iron polysaccharide complex 150 mg Capsule PO (08:32)
[2021-08-17] MEDS: metoprolol tartrate 50 mg Tablet PO (08:32)
[2021-08-17] MEDS: memantine 5 mg tablet PO (08:33)
[2021-08-17] MEDS: amlodipine 5 mg Tablet PO (08:33)
[2021-08-17] MEDS: calcium carbonate 500 mg Chew Tablet 1000 MG PO (08:33)
[2021-08-17] MEDS: pregabalin 150 mg Capsule 300 MG PO (08:33)
[2021-08-17] MEDS: gabapentin 100 mg Capsule PO (08:33)
[2021-08-17] MEDS: hydroCHLOROthiazide 25 mg Tablet PO (08:33)
[2021-08-17] MEDS: lisinopril 20 mg Tablet PO (08:33)
[2021-08-17] MEDS: atorvastatin 40 mg Tablet PO (08:33)
[2021-08-17] MEDS: oxyCODONE 5 mg IR Tab/Cap PO (08:35)
[2021-08-17 10:56] LABS: Glucose Point of Care 175 mg/dL (70-110)
--- NOTE | 2021-08-17 11:37 | PC.NURSE ---
Report called to Anne Badillo at this time. Report called to Deepa AGUILAR
--- NOTE | 2021-08-17 15:04 | PC.NURSE ---
Patient assisted into wheel chair to be taken to [facility] at this time. IV removed intact. Patient tolerated well.
== END 2021-08-17 15:00 | disposition skilled nursing facility (03) | DRG 467 ==
LOC: ER 07:31 → OR 08:32 → MEDSURG 17:01
PROVIDERS: Emergency Medicine; Family Medicine; Admitting Provider Specialist; Emergency Provider Emergency Medicine; PCP Nurse Practitioner; Visit Provider Orthopaedic Surgery
PROC: 0SPW0JZ Removal of Synthetic Substitute from Left Knee Joint, Tibial Surface, Open Approach (ICD-10-PCS; principal; 2021-08-13 09:00)
PROC: 0SPW0JZ Removal of Synthetic Substitute from Left Knee Joint, Tibial Surface, Open Approach (ICD-10-PCS; CPT 27447; 2021-08-13 09:00)
DX: S76.122A Laceration of left quadriceps muscle, fascia and tendon, initial encounter (principal); T81.32XA Disruption of internal operation (surgical) wound, not elsewhere classified, initial encounter; W19.XXXA Unspecified fall, initial encounter; Z96.652 Presence of left artificial knee joint; E11.9 Type 2 diabetes mellitus without complications; I10 Essential (primary) hypertension; Z79.84 Long term (current) use of oral hypoglycemic drugs; Z79.4 Long term (current) use of insulin; W01.0XXA Fall on same level from slipping, tripping and stumbling without subsequent striking against object, initial encounter
CPT/HCPCS: 36415; 36416; 51702; 73560; 73562; 80048; 80053; 80202; 82550; 82962; 83605; 83735; 83880; 84100; 84145; 85025; 85610; 85651; 85730; 86140; 87040; 87070; 87075; 87176; 87205; 87635; 96365; 96367; 96372; 96374; 96375; 97116; 97162; 97165; 97530; 97760; 99285; C1776; J1170; J1815 ×2; J3010; J3370; J7030; J7040; J7050; L1812

== ENCOUNTER 2021-08-21 15:32 | Emergency (ER) | payer OTHER, MEDICARE, SELFPAY ==
--- NOTE | 2021-08-21 15:35 | ED_ITS ---
HPI - Abdominal Pain General: Chief Complaint: Syncope Stated Complaint: ABD PAIN, SYNCOPAL EPISODE Time Seen by Provider: 08/21/21 15:34 History of Present Illness: HPI narrative: 81-year-old male presents via EMS after syncopal episode complaining of abdominal pain. Patient is [place] [facility]. He is complaining of abdominal pain and cramping that seems to be illness cyclical/intermittent in nature. States it seems to come and go he cannot really identify anything that exacerbates or relieves it. He has been a little constipated lately reports getting hard dark stools no black tarry stools no jocy blood. Patient recently had a knee arthroplasty done he fell which caused disruption to the knee arthroplasty and then it was revised. He denies any chest pain or difficulty breathing. No dysuria urgency or frequency. In route to the hospital he had an episode of syncope which EMS describe with verbal stimulation he responded. MD elicited complaint: abdominal pain Pertinent past history: constipation Onset (ago): hour(s) Pain Consistency: intermittent Location: None Severity: mild Quality: cramping Radiation: none Migration to: no migration Exacerbating factors: nothing Relieving factors: nothing Associated Symptoms: Reports GI cramping and poor appetite; Denies anorexia, belching, bloating, change in bowel habits, change in stool character, chills, coffee ground emesis, constipation, diarrhea, dyspepsia, dysuria, excessive flatus, fever(s), heartburn, hematochezia, hematuria, hematemesis, fecal incontinence, loose stools, melena, nausea, syncope and vomiting Review of Systems Const: Denies: fever(s) or chills ENMT: Denies: throat pain, ear or mastoid pain, nasal discharge or nasal c ongestion Card: Denies: syncope Resp: Denies: dyspnea, productive cough or non-productive cough GI: Reports: GI cramping; Denies: nausea, vomiting, hematemesis, coffee ground emesis, heartburn, diarrhea, constipation, bloating, belching, excessive flatus, fecal incontinence, change in bowel habits, change in stool character, hematochezia or melena : Denies: dysuria or hematuria Skin/Breast: Denies: rash or pruritus PFSH ED PFSH: Medical History Ankle arthritis Diabetes Eye disorder Gall bladder 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 Knee cap dislocation Rotator cuff arthropathy Family History Mother CAD (coronary artery disease) Social History Smoking and tobacco status: never smoked Alcohol intake: former Physical Exam Const: GENERAL APPEARANCE: cooperative and comfortable ORIENTATION/CONSCIOUSNESS: Yes awake HENMT: COMMON NORMALS: normocephalic, atraumatic and hearing grossly normal bilaterally HEAD & SCALP: normocephalic and atraumatic Neck/C-Spine: COMMON NORMALS: no JVD Resp: COMMON NORMALS: normal respiratory effort, No retractions, No use of accessory muscles and clear to auscultation bilaterally AUSCULTATION: clear to auscultation bilaterally Cardio: COMMON NORMALS: no JVD, regular rate, regular rhythm and No murmurs present (Cardio) RATE: regular rate RHYTHM: regular rhythm GI: COMMON NORMALS: Soft to palpation and No hepatosplenomegaly present AUSCULTATION: Yes normoactive bowel sounds PALPATION: Yes Soft to palpation, No Tenderness to palpation present (GI), No Guarding due to palpation present (GI) and Yes No hepatosplenomegaly present Extremity: COMMON NORMALS: normal to inspection, capillary refill normal, no clubbing, cyanosis or edema, no calf tenderness and no pedal edema Skin: COMMON NORMALS: no rashes or lesions noted GENERAL SKIN EXAM: no rashes or lesions noted Course Vital Signs: Vital signs: Vital Signs Temperature 98.2 F 08/21/21 15:56 Pulse Rate 72 08/21/21 15:56 Respiratory Rate 18 08/21/21 15:56 Blood Pressure 127/63 08/21/21 15:56 Pulse Oximetry 93 08/21/21 15:56 MDM - Abdominal Pain MDM Narrative: Medical decision making narrative: Labs imaging and EKGs reviewed. Patient has mild diverticulitis abdominal exam does not show significant peritoneal signs. We will go ahead and treat as an outpatient with Cipro and Flagyl clear liquid diet for 24 to 48 hours and advance as tolerated return if has further problems Lab Data: Labs: Lab Results 08/21/21 08/21/21 08/21/21 16:45 16:45 16:45 WBC 11.6 10^3/uL H 10 ^3/uL (4.0-10.0) RBC 3.68 10^6/uL L 10 ^6/uL (4.1-5.3) Hgb 11.0 g/dL L g/dL (11.7-16.6) Hct 34.5 % L % (42.0-52.0) MCV 93.8 fl fl (80-94) MCH 29.9 pg pg (28.0-34.0) MCHC 31.9 g/dL g/dL (30.0-36.0) RDW 13.4 % % (12.1-15.1) Plt Count 583 10^3/cmm H 10 ^3/cmm (130-400) MPV 10.8 fL H fL (7.4-10.4) Neut % (Auto) 57.4 % % Lymph % (Auto) 24.4 % % [place] % (Auto) 13.9 % % Eos % (Auto) 2.9 % % Baso % (Auto) 1.0 % % Neut # (Auto) 6.63 10^3/uL 10^3 /uL (1.8-7.7) Lymph # (Auto) 2.8 10^3/uL 10^3/ uL (0.8-4.8) [place] # (Auto) 1.6 10^3/uL H 10^ 3/uL (0.2-0.9) Eos # (Auto) 0.3 10^3/uL 10^3/ uL (0.0-0.8) Baso # (Auto) 0.1 10^3/uL 10^3/ uL (0.0-0.1) Nucleated RBC % (a uto) 0 % % Nucleated RBCs # 0.0 /100WBC /100W BC Sodium 137 mmol/L mmol/L (136-145) Potassium 4.0 mmol/L mmol/L (3.5-5.1) Chloride 103 mmol/L mmol/L (98-107) Carbon Dioxide 19 mmol/L L mmol/ L (22-29) Anion Gap 19.0 (5-19) BUN 21 mg/dL mg/dL (8-23) Creatinine 1.4 mg/dL H mg/dL (0.7-1.2) GFR Calculation Not Reportable Glucose 112 mg/dL mg/dL (65-115) Calculated Osmolal ity 288 mOsm/kg mOsm/ kg (285-295) Lactic Acid 1.7 mmol/L mmol/L (0.5-2.2) Calcium 7.6 mg/dL L mg/dL (8.5-10.5) Total Bilirubin 0.3 mg/dL mg/dL (0.15-1.2) AST 14 U/L U/L (0-40) ALT 10 U/L U/L (0-41) Alkaline Phosphata se 87 IU/L IU/L (40-130) Troponin T Baselin e Total Protein 6.1 g/dL L g/dL (6.6-8.7) Albumin 3.5 g/dL g/dL (3.5-5.2) Globulin 2.6 g/dL g/dL (1.3-4.6) Lipase 25 U/L U/L (13-60) Urine Color Urine Appearance Urine pH Ur Specific Gravit y Urine Protein Urine Glucose (UA) Urine Ketones Urine Blood Urine Nitrate Urine Bilirubin Urine Urobilinogen Ur Leukocyte Ruby ase 08/21/21 08/21/21 16:45 17:16 WBC RBC Hgb Hct MCV MCH MCHC RDW Plt Count MPV Neut % (Auto) Lymph % (Auto) [place] % (Auto) Eos % (Auto) Baso % (Auto) Neut # (Auto) Lymph # (Auto) [place] # (Auto) Eos # (Auto) Baso # (Auto) Nucleated RBC % (a uto) Nucleated RBCs # Sodium Potassium Chloride Carbon Dioxide Anion Gap BUN Creatinine GFR Calculation Glucose Calculated Osmolal ity Lactic Acid Calcium Total Bilirubin AST ALT Alkaline Phosphata se Troponin T Baselin e 16 ng/L H ng/L (0-15) Total Protein Albumin Globulin Lipase Urine Color Yellow (Yellow) Urine Appearance Clear (CLEAR) Urine pH 5 (5-7) Ur Specific Gravit y 1.020 (1.005-1.030) Urine Protein Neg (Negative) Urine Glucose (UA) Norm (Normal) Urine Ketones Negative (Negative) Urine Blood Neg (Negative) Urine Nitrate Negative (Negative) Urine Bilirubin Neg (Negative) Urine Urobilinogen Norm mg/dL mg/dL (Negative) Ur Leukocyte Ruby ase Negative (Negative) Discharge Plan Discharge Patient Disposition: Home Clinical Impression: Diverticulitis Condition: Stable Prescriptions: New Cipro 500 mg tablet 500 mg PO BID Qty: 20 RF: 0 Flagyl 500 mg tablet 500 mg PO BID 10 Days Qty: 20 RF: 0 No Action venlafaxine 75 mg tablet 75 mg PO BID@08,20 RF: 0 lovastatin 40 mg tablet 40 mg PO DAILY@20 RF: 0 amlodipine 5 mg tablet 5 mg PO DAILY@08 RF: 0 benazepril 20 mg tablet 20 mg PO DAILY@08 RF: 0 hydrochlorothiazide 25 mg tablet 25 mg PO DAILY@08 RF: 0 metformin 1,000 mg tablet 1,000 mg PO BID@08,20 RF: 0 memantine 5 mg tablet 5 mg PO BID@08,20 RF: 0 metoprolol tartrate 50 mg tablet 50 mg PO DAILY@08 RF: 0 (DME) knee immobilizer See Rx Instructions .Route .MEDSUPPLY Qty: 1 RF: 0 celecoxib 200 mg Capsule 200 mg PO Q12H PRN (Reason: pain) 30 Days Qty: 60 RF: 0 acetaminophen 500 mg Tablet 1,000 mg PO Q8H RF: 0 Milk of Magnesia 400 mg/5 mL Suspension 30 ml PO DAILY PRN (Reason: Constipation) RF: 0 bisacodyl 10 mg Suppository 10 mg HI DAILY PRN (Reason: Constipation) RF: 0 Enema Disposable 19-7 gram/118 mL Enema 118 ml HI DAILY PRN (Reason: Constipation) RF: 0 Vitamin D3 25 mcg (1,000 unit) Capsule 25 mcg PO DAILY@08 RF: 0 Novolog Flexpen U-100 Insulin 100 unit/mL (3 mL) Insulin Pen 10 unit SUBCUT TID@,,18 RF: 0 Lyrica 300 mg Capsule 300 mg PO BID@08,20 RF: 0 Sparks 3-6-9 Complex 400-400-400 mg Capsule 1 cap PO BID@08,20 RF: 0 Ferrex 150 150 mg iron capsule 150 mg PO BID@08,20 RF: 0 Bactrim DS 800-160 mg tablet 1 tab PO BID@08,20 RF: 0 aspirin 325 mg tablet,delayed release (DR/EC) 325 mg PO DAILY@08 RF: 0 gabapentin 100 mg capsule 100 mg PO TID@08,12,20 RF: 0 Lantus Solostar U-100 Insulin 100 unit/mL (3 mL) insulin pen 30 unit SUBCUT BEDTIME@20 RF: 0 Thera 400 mcg tablet 1 tab PO DAILY@08 RF: 0 Discharge Orders: Discharge ED (Routine); Ordered 08/21/21 Ordered By: Puneet Segal Referrals: Christiana Holley FNP [Primary Care Provider] - Discharge Diet: Clear Liquid Discharge Activity: Increase activity as tolerated Patient Instructions: Opioid Safety Activity Restrictions/Additional Instructions: Start antibiotics for diverticulitis. Clear liquid diet for 48 hours and advance as tolerated. Coding Level of Care Code ED Fire Captain Marine for Chg Fwd Exam Comprehensive
[2021-08-21 15:51] VITALS: BP 127/63; PULSE 74; RESP 18; TEMP 36.8; O2SAT 94; BMI 32.5
[2021-08-21 15:56] VITALS: BP 127/63; PULSE 72; RESP 18; TEMP 36.8; O2SAT 93
--- NOTE | 2021-08-21 16:10 | XRR_ITS ---
PROCEDURE INFORMATION: Exam: XR Chest Exam date and time: 08/21/2021 4:10 PM Age: 81 years old Clinical indication: Cough and dyspnea; Additional info: Dyspnea/cough TECHNIQUE: Imaging protocol: XR of the chest. Views: 1 view. COMPARISON: CT abdomen pelvis w con* [id number] 08/21/2021 4:27 PM FINDINGS: Limitations: Study is made with lordotic positioning. Lungs: Visualized portions of the lungs are clear. Pleural spaces: Unremarkable. No pleural effusion. No pneumothorax. Heart/Mediastinum: Heart is within normal limits of size. Bones/joints: There is mild scoliosis of the thoracic spine. XR/XR chest 1V portable [id number] IMPRESSION: No acute infiltrate.
--- NOTE | 2021-08-21 16:10 | ECG_ITS ---
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 Measurements Intervals [place] Rate: 74 P: 31 ME: 187 QRS: 28 QRSD: 95 T: 52 QT: 387 QTc: 430 Interpretive Statements SINUS RHYTHM POSSIBLE RIGHT VENTRICULAR CONDUCTION DELAY [RSR (QR) IN V1/V2] Compared to ECG 07/25/2021 10:36:31 Sinus bradycardia no longer present First degree AV block no longer present Electronically Signed On 08-21-2021 20:53:47 FLAME CUTTING SUPERVISOR by Cindy Vuong M.D. [id number]
--- NOTE | 2021-08-21 16:10 | CTR_ITS ---
PROCEDURE INFORMATION: Exam: CT Abdomen And Pelvis With Contrast Exam date and time: 08/21/2021 4:10 PM Age: 81 years old Clinical indication: Abdominal pain; Prior surgery; Surgery type: Gb; Additional info: Abd pain TECHNIQUE: Imaging protocol: Computed tomography of the abdomen and pelvis with contrast. Radiation optimization: All CT scans at this facility use at least one of these dose optimization techniques: automated exposure control; mA and/or kV adjustment per patient size (includes targeted exams where dose is matched to clinical indication); or iterative reconstruction. Contrast material: VISI 320; Contrast volume: 95 ml; Contrast route: INTRAVENOUS (IV); COMPARISON: No relevant prior studies available. RADIATION DOSE METRICS: Total DLP (mGy-cm): 1902.96 FINDINGS: Lungs: There are mild atelectatic changes at the lung bases. Liver: There is no focal abnormality within the liver. Gallbladder and bile ducts: There has been a cholecystectomy. Pancreas: The pancreas is normal. Spleen: The spleen is normal. Adrenal glands: The adrenal glands are normal. Kidneys and ureters: The kidneys are normal. There is no evidence of hydronephrosis. There is no evidence of renal or ureteral calcifications. Stomach and bowel: Extensive diverticulosis is present in the distal colon. There is mild inflammatory stranding in the fat adjacent to the distal descending colon and a suggestion mild thickening. This could represent some mild diverticulitis. Please correlate with clinical findings. There is no evidence of intestinal obstruction. Appendix: A normal appendix is identified. Intraperitoneal space: There is no evidence of free intraperitoneal fluid. Vasculature: The aorta demonstrates moderate atherosclerotic calcification. There is no evidence of an abdominal aortic aneurysm. Lymph nodes: There is no evidence of lymphadenopathy. Urinary bladder: There is a small diverticulum from the posterior aspect of the left side of the urinary bladder. There is mild bladder wall thickening, please correlate for any clinical signs or symptoms of urinary tract infection. Reproductive: Unremarkable as visualized. Bones/joints: There are old healed left pelvic fractures. There is multilevel lumbar stenosis. The lumbar spine demonstrates moderate degenerative changes at multiple levels. There is prominent Schmorl's node deformity of the superior endplate of L2 which is chronic in appearance. Soft tissues: There is small left inguinal hernia containing only fat. CT/CT abdomen pelvis w con* [id number] IMPRESSION: 1. Question of mild diverticulitis of distal descending colon. 2. Mild thickening of the urinary bladder wall.
[2021-08-21] MEDS: iodixanol 320 mg/mL 100mL Btl IV (16:27)
--- NOTE | 2021-08-21 16:56 | PC.PHAR ---
PT IS FROM [facility] NURSE FROM [facility] STATES THE PT TOOK AM MEDS TODAY AND HAD ONE PRN OF OXYCODONE
[2021-08-21 17:06] LABS: Basophils # 0.1 10^3/uL (0.0-0.1); Eosinophils # 0.3 10^3/uL (0.0-0.8); Eosinophils % 2.9 %; Hematocrit 34.5 % (42.0-52.0); Lymphocytes # 2.8 10^3/uL (0.8-4.8); Lymphocytes % 24.4 %; Mean Corpuscular HGB Conc 31.9 g/dL (30.0-36.0); Mean Corpuscular Hemoglobin 29.9 pg (28.0-34.0); Mean Corpuscular Volume 93.8 fl (80-94); Mean Platelet Volume 10.8 fL (7.4-10.4); Monocytes # 1.6 10^3/uL (0.2-0.9); Monocytes % 13.9 %; Neutrophils # 6.63 10^3/uL (1.8-7.7); Neutrophils % 57.4 %; Nucleated Red Blood Cells % 0 %; Platelet Count 583 10^3/cmm (130-400); Red Blood Count 3.68 10^6/uL (4.1-5.3); Red Cell Distribution Width 13.4 % (12.1-15.1); White Blood Count 11.6 10^3/uL (4.0-10.0)
[2021-08-21 17:26] LABS: Troponin(5th) Baseline 16 ng/L (0-15)
[2021-08-21 17:28] LABS: Lactic Sepsis W/Reflex 1.7 mmol/L (0.5-2.2)
[2021-08-21 17:29] LABS: Alanine Aminotransferase 10 U/L (0-41); Albumin Level 3.5 g/dL (3.5-5.2); Alkaline Phosphatase 87 IU/L (40-130); Aspartate Amino Transferase 14 U/L (0-40); Carbon Dioxide 19 mmol/L (22-29); Chloride 103 mmol/L (98-107); Globulin 2.6 g/dL (1.3-4.6); Glucose 112 mg/dL (65-115); Lipase 25 U/L (13-60); Sodium 137 mmol/L (136-145); Total Bilirubin 0.3 mg/dL (0.15-1.2); Total Protein 6.1 g/dL (6.6-8.7)
[2021-08-21 17:39] LABS: Add Urine Microscopic? NO; Charge for UA Resulting for Rev
[2021-08-21 17:42] LABS: Blood Urea Nitrogen 21 mg/dL (8-23); Calcium 7.6 mg/dL (8.5-10.5); Osmolality Calculated 288 mOsm/kg (285-295)
[2021-08-21 17:43] LABS: Bilirubin Urine Neg (Negative); Blood Urine Neg (Negative); Glucose Urine UA Norm (Normal); Ketones Urine Negative (Negative); Leukocyte Esterase Urine Negative (Negative); Nitrate Urine Negative (Negative); Protein Urine Neg (Negative); Urine Appearance Clear (CLEAR); Urine Color Yellow (Yellow); Urobilinogen Urine Norm (Negative); pH Urine 5 (5-7)
== END 2021-08-21 18:24 | disposition home or self-care (01) ==
PROVIDERS: Emergency Provider Family Medicine; PCP Nurse Practitioner
DX: K57.92 Diverticulitis of intestine, part unspecified, without perforation or abscess without bleeding (principal); Z79.82 Long term (current) use of aspirin; Z79.4 Long term (current) use of insulin; E11.9 Type 2 diabetes mellitus without complications
CPT/HCPCS: 71045; 74177; 80053; 81003; 83605; 83690; 84484; 85025; 93005; 99283; 99291; Q9967

== ENCOUNTER → 2021-11-29 11:05 | Outpatient (BNVA) | payer OTHER, SELFPAY | PROVIDERS: PCP Nurse Practitioner; Visit Provider Orthopaedic Surgery | DX: Z96.652 Presence of left artificial knee joint (principal) | CPT/HCPCS: 99212 ==

== ENCOUNTER → 2022-01-10 10:36 | Outpatient (BNVA) | payer OTHER, SELFPAY | PROVIDERS: PCP Nurse Practitioner; Visit Provider Orthopaedic Surgery | DX: Z96.652 Presence of left artificial knee joint (principal); S76.119A Strain of unspecified quadriceps muscle, fascia and tendon, initial encounter; X58.XXXA Exposure to other specified factors, initial encounter | CPT/HCPCS: 99212 ==

== ENCOUNTER 2022-01-11 14:24 | Outpatient (CLI) | payer OTHER, SELFPAY ==
--- NOTE | 2022-01-11 14:30 | USCV_ITS ---
Alonsodieudonne El Age: 81 Gender: M : 1940 Exam Date: 01/11/2022 14:44 Ordering Phys: Nathan Ayala MD Technologist: GEE Exam Location: [facility] [place] Indication: lt leg pain and swelling PROCEDURES: Venous duplex imaging was performed in only the left lower extremity. The following venous structures were evaluated: common femoral vein, profunda vein, proximal portion of the greater saphenous vein, superficial femoral vein, and the popliteal vein. In addition, the posterior tibial and peroneal trunk were evaluated. FINDINGS: Normal 2-D Doppler and augmentation and compressibility throughout the lower extremity venous structures. Additional imaging through the proximal calf veins also reveals no thrombus. Limited evaluation of the greater saphenous vein is patent with no thrombus. There is subcutaneous left lower extremity edema noted. CONCLUSIONS No DVT left lower extremity. Dr. Shala Moore DO (Electronically Signed) Final Date: 11 Jan 2022 15:36 S
== END 2022-01-11 14:25 | disposition home or self-care (01) ==
LOC: RAD 14:27
PROVIDERS: PCP Nurse Practitioner; Visit Provider Orthopaedic Surgery
DX: M79.661 Pain in right lower leg (principal); Z96.652 Presence of left artificial knee joint
CPT/HCPCS: 93971

== ENCOUNTER 2022-06-08 11:50 | Outpatient (CLI) | payer OTHER, SELFPAY ==
--- NOTE | 2022-06-08 | US_ITS ---
WS: [id number] RENAL ULTRASOUND HISTORY: CHRONIC KIDNEY DISEASE COMPARISON: CT 08/21/2021 TECHNIQUE: 2-D and color Doppler imaging of the kidney submitted. Cortex measures Right kidney: 10.5 cm x 6.7 cm x 5.0 cm. Normal echogenicity with no hydronephrosis or mass. Cortex measures 1.7 cm. Left kidney: 8.7 cm x 5.4 cm x 4.9 cm. Low normal size kidney. No hydronephrosis or mass. No cortical thinning. Cortex measures 1.7 cm. Aorta: Normal. Urinary Bladder: Well-distended urinary bladder. Hypoechoic nodule along the posterior LEFT urinary b ladder corresponds to a bladder diverticulum seen on the prior CT. US/US renal BI* [id number] IMPRESSION: 1. Mild atrophy LEFT kidney. 2. No renal obstruction. No cortical thinning.
== END 2022-06-08 11:51 | disposition home or self-care (01) ==
LOC: RAD 11:51
PROVIDERS: PCP Nurse Practitioner; Visit Provider Internal Medicine Nephrology
DX: N18.32 Chronic kidney disease, stage 3b (principal); N26.1 Atrophy of kidney (terminal)
CPT/HCPCS: 76770

== ENCOUNTER 2023-02-06 08:32 | Outpatient (CLI) | payer OTHER, SELFPAY ==
--- NOTE | 2023-02-06 08:47 | US_ITS ---
WS: [id number] ABDOMINAL ULTRASOUND LIMITED REASON FOR EXAM: ELEVATED LIVER ENZYMES COMPARISON: None available. ORDER DATE: 02/06/2023 9:08 AM TECHNIQUE: Grayscale and Doppler ultrasound examination of the abdomen. FINDINGS: Pancreas: Unremarkable as visualized Abdominal aorta and IVC: Aorta 2 cm in diameter otherwise unremarkable. IVC 15 mm in diameter and unr emarkable Liver: Liver measures 20.7 cm in length. Unremarkable otherwise Gallbladder: Resected. Common bile duct Measures 4.5 mm no dilated intrahepatic bile ducts Right kidney: Right kidney measures 9.6 cm x 5.3 cm x 4.7 cm. Right kidney cortex measures 1.2 cm. No focal abnormalities Normal duplex flow US/US abdomen limited [id number] IMPRESSION: No specific abnormalities other than mild hepatomegaly..
== END 2023-02-06 08:33 | disposition home or self-care (01) ==
PROVIDERS: PCP Nurse Practitioner; Visit Provider Nurse Practitioner
DX: R74.8 Abnormal levels of other serum enzymes (principal); R16.0 Hepatomegaly, not elsewhere classified
CPT/HCPCS: 76705

== ENCOUNTER 2023-11-19 16:45 | Emergency (ER) | payer OTHER, SELFPAY ==
--- NOTE | 2023-11-19 16:51 | XRR_ITS ---
PROCEDURE INFORMATION: Exam: XR Right Shoulder Exam date and time: 11/19/2023 5:12 PM Age: 83 years old Clinical indication: Injury or trauma; Fall; Blunt trauma (contusions or hematomas); Shoulder; Right TECHNIQUE: Imaging protocol: Radiologic exam of the right shoulder. Views: 2 or more views. COMPARISON: CR XR chest 1V portable [id number] 08/21/2021 5:07 PM FINDINGS: Bones/joints: No fracture or other acute abnormality. Small nonacute ossicles abut the lateral margin of the acromion process and the inferior neck of the clavicle. Mild degenerative changes are seen in the acromioclavicular joint. Soft tissues: See above. XR/XR shoulder RT min 2V* [id number] IMPRESSION: Nonacute findings.
[2023-11-19 17:00] VITALS: BP 177/74; PULSE 68; RESP 16; TEMP 36.8; O2SAT 98; BMI 33.9
--- NOTE | 2023-11-19 17:08 | W.ED.EXTPRO ---
HPI - Extremity Problem General: Chief complaint: Extremity Injury, Upper Stated complaint: fall, right shoulder pain Time Seen by Provider: 11/19/23 16:51 Source: patient Mode of arrival: ambulatory Limitations: no limitations History of Present Illness: 83-year-old male states that he had slipped and fell into a door and hit his right shoulder directly has pain over the right shoulder and proximal humerus. States it is worse with movement rates the pain a 5 out of 10 currently denies any other injuries denies hitting his head. 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 Knee cap dislocation Ankle arthritis Gall bladder disease Rotator cuff arthropathy Eye disorder Family History Mother CAD (coronary artery disease) Social History Smoking and tobacco/nicotine status: never used tobacco/nicotine Alcohol intake: former Physical Exam Const: COMMON NORMALS: no acute distress, patient oriented x3 and healthy appearing HENMT: COMMON NORMALS: normocephalic and atraumatic HEAD & SCALP: normocephalic and atraumatic Neck/C-Spine: COMMON NORMALS: full ROM and supple Chest: COMMONS NORMALS: normal inspection of the chest Resp: COMMON NORMALS: normal respiratory effort Cardio: COMMON NORMALS: regular rate RATE: regular rate Extremity: COMMON NORMALS: full ROM NARRATIVE EXTREMITY EXAM: Tenderness over right proximal humerus pain with range of motion distal pulses sensation intact Neuro: COMMON NORMALS: patient oriented x3, moves all extremities and no focal motor deficits Psych: COMMON NORMALS: mental status grossly normal, Normal thought process present and cooperative THOUGHT PROCESS: Normal thought process present Skin: COMMON NORMALS: no rashes or lesions noted and no wounds GENERAL SKIN EXAM: no rashes or lesions noted Course Vital Signs: Vital signs: Vital Signs Temperature 98.3 F 11/19/23 17:00 Pulse Rate 68 11/19/23 17:00 Respiratory Rate 16 11/19/23 17:00 Blood Pressure 177/74 11/19/23 17:00 Pulse Oximetry 98 11/19/23 17:00 Oxygen Delivery Me thod Room Air 11/19/23 17:00 MDM - Extremity (Nontraumatic) Medical Decision Making Patient presents here with shoulder contusion from a fall x-rays here are negative he is stable for discharge no other injuries noted Lab Data Radiology Impressions Shoulder X-Ray 11/19/23 16:51 IMPRESSION: Nonacute findings. All radiology interpretation(s) finalized by discharge Discharge Plan Discharge Patient Disposition: Home Clinical Impression: Fall Pain in right shoulder Qualifiers: Chronicity: acute Qualified Code(s): M25.511 - Pain in right shoulder Condition: Stable Prescriptions: New hydrocodone-acetaminophen 5-325 mg tablet 1 tab PO Q6H PRN (Reason: pain) Qty: 10 0RF No Action venlafaxine 75 mg tablet 75 mg PO BID@08,20 lovastatin 40 mg tablet 40 mg PO DAILY@20 amlodipine 5 mg tablet 5 mg PO DAILY@08 Rx Instructions: HOLD IF BP IS LESS THAN 100 OR PULSE LESS THAN 60 benazepril 20 mg tablet 20 mg PO DAILY@08 Rx Instructions: HOLD IF BP IS LESS THAN 100 OR PULSE LESS THAN 60 hydrochlorothiazide 25 mg tablet 25 mg PO DAILY@08 metformin 1,000 mg tablet 1,000 mg PO BID@08,20 memantine 5 mg tablet 5 mg PO BID@08,20 metoprolol tartrate 50 mg tablet 50 mg PO DAILY@08 Rx Instructions: HOLD IF BP IS LESS THAN 100 OR PULSE LESS THAN 60 (DME) knee immobilizer See Rx Instructions .Route .MEDSUPPLY Qty: 1 0RF Rx Instructions: As directed acetaminophen 500 mg Tablet 1,000 mg PO Q8H Milk of Magnesia 400 mg/5 mL Suspension 30 ml PO DAILY PRN (Reason: Constipation) bisacodyl 10 mg Suppository 10 mg MT DAILY PRN (Reason: Constipation) Enema Disposable 19-7 gram/118 mL Enema 118 ml MT DAILY PRN (Reason: Constipation) Vitamin D3 25 mcg (1,000 unit) Capsule 25 mcg PO DAILY@08 Novolog FlexPen U-100 Insulin 100 unit/mL (3 mL) Insulin Pen 10 unit SUBCUT TID@06,12,18 Lyrica 300 mg Capsule 300 mg PO BID@08,20 [place]er 3-6-9 Complex 400-400-400 mg Capsule 1 cap PO BID@08,20 Ferrex 150 150 mg iron capsule 150 mg PO BID@08,20 Bactrim DS 800-160 mg tablet 1 tab PO BID@08,20 aspirin 325 mg tablet,delayed release (DR/EC) 325 mg PO DAILY@08 gabapentin 100 mg capsule 100 mg PO TID@08,12,20 Lantus Solostar U-100 Insulin 100 unit/mL (3 mL) insulin pen 30 unit SUBCUT BEDTIME@20 Thera 400 mcg tablet 1 tab PO DAILY@08 Cipro 500 mg tablet 500 mg PO BID Qty: 20 0RF Discharge Orders: Discharge ED (Routine); Ordered 11/19/23 Ordered By: Nicole Ely Referrals: Christiana Holley FNP [Primary Care Provider] - 1-3 days Discharge Diet: Advance as tolerated Discharge Activity: Resume usual activity Patient Instructions: Shoulder Pain (ED) Coding Level of Care Code ED 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
[2023-11-19] MEDS: HYDROcodone-acetaminophen 5-325 mg Tablet 1 TAB PO (17:11)
== END 2023-11-19 17:50 | disposition home or self-care (01) ==
PROVIDERS: Emergency Provider Emergency Medicine; PCP Nurse Practitioner
DX: S40.011A Contusion of right shoulder, initial encounter (principal); M25.511 Pain in right shoulder; Z79.82 Long term (current) use of aspirin; Z79.84 Long term (current) use of oral hypoglycemic drugs; Z79.4 Long term (current) use of insulin; E11.9 Type 2 diabetes mellitus without complications; W01.198A Fall on same level from slipping, tripping and stumbling with subsequent striking against other object, initial encounter
CPT/HCPCS: 73030; 99283

== ENCOUNTER 2024-01-16 10:43 | Inpatient (IN) | payer OTHER, SELFPAY ==
[2024-01-16] VITALS (7 sets, daily range): BP systolic 133–152; BP diastolic 63–74; PULSE 62–112; RESP 18–20; TEMP 37.6–39.5; O2SAT 90–95; BMI 43.4; BMI 36.1
--- NOTE | 2024-01-16 10:52 | ECG_ITS ---
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 Measurements Intervals [place] Rate: 66 P: 53 NE: 197 QRS: 54 QRSD: 100 T: 64 QT: 370 QTc: 388 Interpretive Statements SINUS RHYTHM WITH OCCASIONAL SUPRAVENTRICULAR PREMATURE COMPLEXES POSSIBLE RIGHT VENTRICULAR CONDUCTION DELAY [RSR (QR) IN V1/V2] Compared to ECG 08/21/2021 17:26:23 No significant changes Electronically Signed On 01-16-2024 15:49:02 CDT by Remi Calderon M.D. [id number]
--- NOTE | 2024-01-16 10:52 | XR_ITS ---
WS: [id number] Exam: XR chest 1V portable [id number] Date/Time of Exam: 01/16/2024 10:59 AM Reason For Exam: dyspnea/cough Comparison 08/21/2021. The lungs are fully inflated. Mild plaque atelectasis in the mid lower RIGHT lung. Mild cardiac enlar gement with increased pulmonary vascularity. No pleural effusions. Bony structures are intact. S-shap ed scoliosis of the T-spine. XR/XR chest 1V portable [id number] IMPRESSION: 1. Areas of plaque atelectasis in the mid and lower RIGHT lung. No consolidated acute infiltrates are suspected. 2. Mild cardiac enlargement with increased pulmonary vascularity.
--- NOTE | 2024-01-16 10:52 | CT_ITS ---
WS: [id number] CT HEAD TECHNIQUE: Noncontrast CT of the head obtained from the skullbase to the vertex. CLINICAL INFORMATION: AMS COMPARISON: None. DLP: 1143.[address] scans at [facility] use at least one of these dose optimization techniques: automated e xposure control; mA and/or kV adjustment per patient size (includes targeted exams where dose is matc hed to clinical indication); or iterative reconstruction. FINDINGS: No evidence of intracranial hemorrhage or mass effect. Ventricular system and basal cisterns are tenorio nt. Moderate small vessel changes with moderate parenchymal volume loss. No extra-axial fluid collect ions. No evidence of mass or mass effect. Vascular calcification. Small retention cyst or polyp RIGHT maxillary sinus. Mild mucosal thickening ethmoid air cells. Chron ic erosion of the RIGHT mastoid septae. Small LEFT mastoid effusion. Normal posterior nasopharynx. IMPRESSION 1. No evidence of intracranial hemorrhage or mass effect. 2. Moderate small vessel changes. Moderate parenchymal volume loss. 3. Vascular calcification. 4. No acute intracranial findings.
--- NOTE | 2024-01-16 11:08 | W.ED.AMS ---
HPI - Altered Mental Status General: Chief Complaint: Altered Mental Status Stated Complaint: ams Time Seen by Provider: 01/16/24 10:51 Source: patient Mode of arrival: EMS History of Present Illness: 83-year-old male presents emergency room with altered mental status. He lives with his at home she states he has been increasingly difficult to assist and more confused last several weeks but especially the last 4 days. He slid out of bed yesterday was increasingly confused said very strong odor to his urine. He is able to answer most questions appropriately knows where he is at and he knows that he is sick and they brought him to the emergency room he knows he is here with his . His only specific complaint is right shoulder pain which occurred after a fall that was several weeks ago he says he was evaluated and had a normal x-ray after that. He denies fever sweats chills denies abdominal pain or chest pain. Denies dysuria urgency or frequency or diarrhea. The states that she he does not allow her to help him much so he is not sure about many of his symptoms. 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 Knee cap dislocation Ankle arthritis Gall bladder disease Rotator cuff arthropathy Eye disorder Family History Mother CAD (coronary artery disease) Social History Smoking and tobacco/nicotine status: never used tobacco/nicotine Alcohol intake: former Physical Exam Const: ORIENTATION/CONSCIOUSNESS: Yes awake and Yes confused HENMT: COMMON NORMALS: normocephalic, atraumatic and hearing grossly normal bilaterally HEAD & SCALP: normocephalic and atraumatic Resp: COMMON NORMALS: normal respiratory effort, No retractions, No use of accessory muscles and clear to auscultation bilaterally AUSCULTATION: clear to auscultation bilaterally Cardio: COMMON NORMALS: regular rate, regular rhythm and No murmurs present (Cardio) RATE: regular rate RHYTHM: regular rhythm GI: COMMON NORMALS: Soft to palpation and No hepatosplenomegaly present AUSCULTATION: Yes normoactive bowel sounds PALPATION: Yes Soft to palpation, No Tenderness to palpation present (GI), No Guarding due to palpation present (GI) and Yes No hepatosplenomegaly present Extremity: OTHER: Left lower leg red and inflamed slightly warm to the touch and indurated. Exquisitely tender. Skin: COMMON NORMALS: no rashes or lesions noted GENERAL SKIN EXAM: no rashes or lesions noted Course Vital Signs: Vital signs: Vital Signs Temperature 97.6 F 01/17/24 07:47 Pulse Rate 63 01/17/24 08:28 Respiratory Rate 16 01/17/24 08:28 Blood Pressure 116/71 01/17/24 07:47 Pulse Oximetry 99 01/17/24 08:28 Oxygen Delivery Me thod Nasal Cannula 01/17/24 08:28 Oxygen Flow Rate 3 01/17/24 08:28 MDM - Altered Mental Status Medical Decision Making Encephalopathy due to cellulitis with altered mental status started on IV antibiotics. In addition patient has mild acute kidney injury. Also has elevated CPK with rhabdomyolysis. Finally also has a cystitis. Antibiotics started cultures given. Patient was not given a full fluid sepsis bolus due to being mildly fluid overloaded at this time full fluid bolus would worsen his condition. Discussed with hospitalist orders written Medical Records I reviewed the patient's medical records. Lab Data 01/17/24 05:00 01/17/24 05:00 Radiology Impressions Chest X-Ray 01/16/24 10:52 IMPRESSION: 1. Areas of plaque atelectasis in the mid and lower RIGHT lung. No consolidated acute infiltrates are suspected. 2. Mild cardiac enlargement with increased pulmonary vascularity. Shoulder X-Ray 01/16/24 11:16 IMPRESSION: 1. Degenerative changes. No fracture. 2. High riding humeral head probably indicates rotator cuff pathology. Abdomen/Pelvis CT 01/16/24 12:52 IMPRESSION: 1. Numerous enlarged RIGHT iliac chain femoral and inguinal lymph nodes. Smaller LEFT femoral lymph nodes. These are nonspecific and may be reactive but neoplasm not excluded. Recommend correlation with clinical history. Largest lymph nodes measure approximately 2.5 cm on the RIGHT. Slight induration in the RIGHT groin. Recommend correlation for cellulitis or thrombophlebitis thrombophlebitis. Consider RIGHT lower extremity ultrasound. 2. No hydronephrosis in either kidney. 3. Hepatomegaly. 4. Cholecystectomy. 5. Small esophageal hernia. 6. Advanced arthritis LEFT hip. 7. Mild prostate enlargement with evidence of mild bladder outlet obstruction. 8. LEFT dorsal bladder diverticulum described above. Venous Duplex 01/16/24 14:14 IMPRESSION: No evidence of acute DVT. Laboratory Results WBC 4.01 10^3/uL (3.29-11.43) 01/16/24 10:52 RBC 4.93 10^6/uL (3.85-5.65) 01/16/24 10:52 Hgb 15.10 g/dL (11.27-16.99) 01/16/24 10:52 Hct 45.9 % (37-53) 01/16/24 10:52 MCV 93.1 fl (82-101) 01/16/24 10:52 MCH 30.6 pg (27-33) 01/16/24 10:52 MCHC 32.9 g/dL (30-55) 01/16/24 10:52 RDW 14.7 % (12.1-15.1) 01/16/24 10:52 Plt Count 141 10^3/cmm (157-399) L 01/16/24 10:52 MPV 12.9 fL (7.4-10.4) H 01/16/24 10:52 Neut % (Auto) 66.4 % 01/16/24 10:52 Lymph % (Auto) 22.9 % 01/16/24 10:52 [place] % (Auto) 10.0 % 01/16/24 10:52 Eos % (Auto) 0.0 % 01/16/24 10:52 Baso % (Auto) 0.2 % 01/16/24 10:52 Neut # (Auto) 2.66 10^3/uL (1.8-7.7) 01/16/24 10:52 Lymph # (Auto) 0.9 10^3/uL (0.8-4.8) 01/16/24 10:52 [place] # (Auto) 0.4 10^3/uL (0.2-0.9) 01/16/24 10:52 Eos # (Auto) 0.0 10^3/uL (0.0-0.8) 01/16/24 10:52 Baso # (Auto) 0.0 10^3/uL (0.0-0.1) 01/16/24 10:52 Nucleated RBC % (auto) 0 % 01/16/24 10:52 Nucleated RBCs # 0.0 /100WBC 01/16/24 10:52 Sodium 138 mmol/L (136-145) 01/16/24 10:52 Potassium 4.8 mmol/L (3.5-5.1) 01/16/24 10:52 Chloride 101 mmol/L (98-107) 01/16/24 10:52 Carbon Dioxide 26 mmol/L (22-29) 01/16/24 10:52 Anion Gap 15.8 (5-19) 01/16/24 10:52 BUN 49 mg/dL (8-23) H 01/16/24 10:52 Creatinine 2.4 mg/dL (0.7-1.2) H 01/16/24 10:52 GFR Calculation Not Reportable 01/16/24 10:52 Glucose 114 mg/dL (65-115) 01/16/24 10:52 Estimat Average Glucose 192 01/16/24 10:52 Hemoglobin A1c 8.3 % (4.0-6.0) H 01/16/24 10:52 Calculated Osmolality 300 mOsm/kg (285-295) H 01/16/24 10:52 Lactic Acid 0.9 mmol/L (0.5-2.2) 01/16/24 10:52 Calcium 8.4 mg/dL (8.5-10.5) L 01/16/24 10:52 Total Bilirubin 0.3 mg/dL (0.15-1.2) 01/16/24 10:52 AST 87 U/L (0-40) H 01/16/24 10:52 ALT 41 U/L (0-41) 01/16/24 10:52 Alkaline Phosphatase 58 U/L (40-130) 01/16/24 10:52 Creatine Kinase 1108 U/L (39-308) H* 01/16/24 10:52 NT-Pro-B Natriuret Pep 42 pg/mL (0-450) 01/16/24 10:52 Total Protein 7.4 g/dL (6.6-8.7) 01/16/24 10:52 Albumin 4.0 g/dL (3.5-5.2) 01/16/24 10:52 Globulin 3.4 g/dL (1.3-4.6) 01/16/24 10:52 PSA Screen 3.33 ng/mL (0-4) 01/16/24 10:52 Vitamin B12 644 pg/mL (232-1245) 01/16/24 10:52 Urine Color Dark yellow (Yellow) 01/16/24 11:15 Urine Appearance Cloudy (CLEAR) A 01/16/24 11:15 Urine pH 5 (5-7) 01/16/24 11:15 Ur Specific [place] 1.020 (1.005-1.030) 01/16/24 11:15 Urine Protein Neg (Negative) 01/16/24 11:15 Urine Glucose (UA) Norm (Normal) 01/16/24 11:15 Urine Ketones Negative (Negative) 01/16/24 11:15 Urine Blood 2+ (Negative) H 01/16/24 11:15 Urine Nitrate Positive (Negative) H 01/16/24 11:15 Urine Bilirubin Neg (Negative) 01/16/24 11:15 Urine Urobilinogen Norm mg/dL (Negative) 01/16/24 11:15 Ur Leukocyte Esterase 2+ (Negative) H 01/16/24 11:15 Urine RBC 0-4 /hpf (0-2) H 01/16/24 11:15 Urine WBC 40-55 /hpf (0-5) H 01/16/24 11:15 Ur Squamous Epith Cells None /hpf (0-5) 01/16/24 11:15 Amorphous Sediment 1+ /hpf 01/16/24 11:15 Urine Bacteria 2+ /hpf (NONE) H 01/16/24 11:15 Hyaline Casts 0-4 /lpf H 01/16/24 11:15 Urine Mucus None /hpf 01/16/24 11:15 All radiology interpretation(s) finalized by discharge Discharge Plan Discharge Patient Disposition: Admitted As Inpatient Admit Provider: Keanu Machuca Clinical Impression: Metabolic encephalopathy, UTI (urinary tract infection), Acute kidney injury superimposed on chronic kidney disease, Bladder outlet obstruction, Rhabdomyolysis Condition: Stable Coding Level of Care Code ED Surveyor Helper for [address]
[2024-01-16 11:11] LABS: Basophils % 0.2 %; Hematocrit 45.9 % (37-53); Lymphocytes # 0.9 10^3/uL (0.8-4.8); Lymphocytes % 22.9 %; Mean Corpuscular HGB Conc 32.9 g/dL (30-55); Mean Corpuscular Hemoglobin 30.6 pg (27-33); Mean Corpuscular Volume 93.1 fl (82-101); Mean Platelet Volume 12.9 fL (7.4-10.4); Monocytes # 0.4 10^3/uL (0.2-0.9); Neutrophils # 2.66 10^3/uL (1.8-7.7); Neutrophils % 66.4 %; Nucleated Red Blood Cells % 0 %; Platelet Count 141 10^3/cmm (157-399); Red Blood Count 4.93 10^6/uL (3.85-5.65); Red Cell Distribution Width 14.7 % (12.1-15.1); White Blood Count 4.01 10^3/uL (3.29-11.43)
--- NOTE | 2024-01-16 11:16 | XR_ITS ---
WS: [id number] Exam: XR shoulder RT min 2V* [id number] Date/Time of Exam: 01/16/2024 11:36 AM Reason For Exam: pain Comparison 11/19/2023. No fracture or dislocation. Degenerative change and arthrosis at the AC joint. High riding humeral he ad articulates with the acromion which probably indicates rotator cuff degeneration. Degenerative luis nges at the glenohumeral joint. XR/XR shoulder RT min 2V* [id number] IMPRESSION: 1. Degenerative changes. No fracture. 2. High riding humeral head probably indicates rotator cuff pathology.
[2024-01-16 11:34] LABS: Alanine Aminotransferase 41 U/L (0-41); Alkaline Phosphatase 58 U/L (40-130); Anion Gap 15.8 (5-19); Aspartate Amino Transferase 87 U/L (0-40); Blood Urea Nitrogen 49 mg/dL (8-23); Calcium 8.4 mg/dL (8.5-10.5); Carbon Dioxide 26 mmol/L (22-29); Chloride 101 mmol/L (98-107); Creatinine Clr Calc Pharmacy 35.7209; Globulin 3.4 g/dL (1.3-4.6); Glucose 114 mg/dL (65-115); Osmolality Calculated 300 mOsm/kg (285-295); Potassium 4.8 mmol/L (3.5-5.1); Sodium 138 mmol/L (136-145); Total Bilirubin 0.3 mg/dL (0.15-1.2); Total Protein 7.4 g/dL (6.6-8.7)
[2024-01-16 11:35] LABS: Lactic Sepsis W/Reflex 0.9 mmol/L (0.5-2.2)
[2024-01-16 11:35] LABS: Bilirubin Urine Neg (Negative); Blood Urine 2+ (Negative); Glucose Urine UA Norm (Normal); Ketones Urine Negative (Negative); Leukocyte Esterase Urine 2+ (Negative); Nitrate Urine Positive (Negative); Protein Urine Neg (Negative); Urine Appearance Cloudy (CLEAR); Urine Color Dark Yellow (Yellow); Urobilinogen Urine Norm (Negative); pH Urine 5 (5-7)
[2024-01-16 11:36] LABS: Add Urine Microscopic? YES
[2024-01-16 11:42] LABS: Creatine Phosphokinase 1108 U/L (39-308)
[2024-01-16 11:43] LABS: Add Urine Culture? Yes; Amorphous Sediment Urine 1+ /hpf; Bacteria Urine 2+ /hpf; Hyaline Casts Urine 0-4 /lpf; RBC Urine 0-4 /hpf (0-2); WBC Urine 40-55 /hpf (0-5)
[2024-01-16 11:48] LABS: Slide Review Slide Review Perform
[2024-01-16] MEDS: sodium chloride 0.9% 1,000 ML 999 ML IV (12:36)
[2024-01-16] MEDS: cefTRIAXone 1,000 MG in sodium chloride 0.9% (plus) 50 ML 100 MG IV (12:36)
--- NOTE | 2024-01-16 12:50 | P.HP_ITS ---
Providers/Chief Complaint 2 Primary Care Provider: TANMAY Rangel Chief Complaint: ams History of Present Illness El Maxwell is a 83 year old male who has multiple comorbid conditions, presented with altered mental status, brought him to the hospital I am not able to get in touch with the at this point, she is not at the bedside, patient is not a good historian. Most information has been taken with the collateral and the EMS report. As per the report patient has been confused and and weak for quite some time, slid out of bed yesterday, noticed that his urine was extremely dark concentrated and foul odorous. Patient is able to answer simple questions only Speech is mildly slurred otherwise able to move his extremities Extremely deconditioned Urine is extremely concentrated Review of Systems 2 General: Reports: ROS unobtainable due to medical condition Medications/Allergies Home Medications Medication Instructions Recorded Confirmed Last Taken Type amlodipine 5 mg tablet 5 mg PO DAILY@10/17/20 01/16/24 08/21/21 History benazepril 20 mg tablet 20 mg PO DAILY@10/17/20 01/16/24 08/21/21 History hydrochlorothiazide 25 mg tablet 25 mg PO DAILY@10/17/20 01/16/24 08/21/21 History lovastatin 40 mg tablet 40 mg PO DAILY@10/17/20 01/16/24 08/20/21 History venlafaxine 75 mg tablet 75 mg PO BID@,10/17/20 01/16/24 08/21/21 08:00 History memantine 5 mg tablet 5 mg PO BID@,04/17/21 01/16/24 08/21/21 08:00 History knee immobilizer #1 ea 08/02/21 01/16/24 Unknown Rx acetaminophen 500 mg tablet 500 mg PO BID PRN Pain 08/21/21 01/16/24 08/21/21 History fish, borage, flaxseed oils-omega 1 cap PO BID@,08/21/21 01/16/24 08/21/21 08:00 History 3,6,9 cb #1 400 mg-400 mg-400 mg cap ([place] 3-6-9 Complex) insulin glargine 100 unit/mL (3 50 unit SUBCUT QAM 08/21/21 01/16/2408/20/22 History mL) subcutaneous pen (Lantus Solostar U-100 Insulin) multivitamin with folic acid 400 1 tab PO DAILY@08 08/21/21 01/16/24 08/21/21 History mcg tablet (Thera) pregabalin 300 mg capsule (Lyrica) 300 mg PO BID@08,20 08/21/21 01/16/24 08/21/21 08:00 History hydrocodone 5 mg-acetaminophen 325 1 tab PO Q6H PRN pain #14 tabs 11/20/23 01/16/24 Unknown Rx mg tablet acarbose 50 mg tablet 50 mg PO TID 01/16/24 01/16/24 Unknown History duloxetine 30 mg capsule,delayed 30 mg PO DAILY 01/16/24 01/16/24 Unknown History release glipizide 10 mg tablet 10 mg PO TID 01/16/24 01/16/24 Unknown History pioglitazone 30 mg tablet 30 mg PO DAILY 01/16/24 01/16/24 Unknown History potassium chloride 20 mEq 10 meq PO DAILY 01/16/24 01/16/24 Unknown History tablet,extended release semaglutide 0.25 mg or 0.5 mg (2 See Rx Instructions .Route .COMPLEX 01/16/24 01/16/24 Unknown History mg/3 mL) subcutaneous pen injector (Ozempic) Allergies Allergy/AdvReac Type Severity Reaction Status Date / Time morphine Allergy sees things Verified 01/10/22 10:39 PFSH Acute 2 PFSH: Medical History Diabetes 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 Knee cap dislocation Ankle arthritis Gall bladder disease Rotator cuff arthropathy Eye disorder Family History Mother CAD (coronary artery disease) Social History Smoking and tobacco/nicotine status: never used tobacco/nicotine Alcohol intake: former Vitals/I&O/Wt Last Vital Signs Temp 99.7 F H 01/16/24 10:47 Pulse 67 01/16/24 12:37 Resp 20 H 01/16/24 12:37 BP 138/74 05/30/24 12:37 Pulse Ox 95 01/16/24 12:37 O2 Del Method Nasal Cannula 01/16/24 12:37 O2 Flow Rate 2 01/16/24 12:37 Weight last 48 hrs Weight 145.15 kg Physical Exam 2 Narrative: Patient is confused There is meal tray in front of him He is stating that he is not hungry Able to move his extremities to some extent Mild edema of lower extremities noted Abdomen distended nontender Intertrigo around groin Tender lymphadenopathy on groin area Mild slurring of speech noted Patient able to make eye contact Poor attention span Cognitive impairment S1, S2 Currently on 3 L Data 01/16/24 10:52 01/16/24 10:52 Micro: Microbiology 01/16/24 11:04 Blood Culture - Preliminary Blood SPECIMEN COLLECTED 01/16/24 11:01 Blood Culture - Preliminary Blood SPECIMEN COLLECTED A&P Assessment and plan (1) Metabolic encephalopathy: (2) UTI (urinary tract infection): (3) Muscle injury: (4) Acute kidney injury superimposed on chronic kidney disease: (5) Bladder outlet obstruction: (6) Dehydration: Plan Acute metabolic encephalopathy with underlying dementia Signs of UTI present Bladder obstruction CT abdomen pelvis did not show hydronephrosis or kidney stone Concern for rhabdomyolysis related urine color change Continue IV fluids Continue antibiotics Will use broad-spectrum antibiotics at this point Patient is full code Low-grade fever noted No active sign of sepsis I was not able to get a hold of the family, most of the information has been taken with the collaterals I will resume cardiac diet Start DVT prophylaxis with heparin Continue aspirin along with amlodipine for hypertension Acute on chronic kidney disease: Related to bladder outlet obstruction Spears catheter placed, will request PSA to rule out prostatic malignancy Attestations 2 Medical Necessity Statement*: More than 2 midnights anticipated Diagnoses Metabolic encephalopathy G93.41 UTI (urinary tract infection) N39.0 Muscle injury T14.90XA Acute kidney injury superimposed on chronic kidney disease N17.9; N18.9 Bladder outlet obstruction N32.0 Dehydration E86.0
--- NOTE | 2024-01-16 12:52 | CT_ITS ---
WS: [id number] CT ABDOMEN PELVIS TECHNIQUE: Noncontrast CT of the abdomen and pelvis with coronal and sagittal reformatted images. CLINICAL INFORMATION: sudeep COMPARISON: CT 08/21/2021 DLP: 1238.[address] scans at [facility] use at least one of these dose optimization techniques: automated e xposure control; mA and/or kV adjustment per patient size (includes targeted exams where dose is matc hed to clinical indication); or iterative reconstruction. FINDINGS: Subsegmental atelectasis in the lung bases. Coronary calcification. Prior cholecystectomy. Hepatomega ly. Small esophageal hiatal hernia. Fatty atrophy of the pancreas. Noncontrast spleen. Normal caliber abdominal aorta. Aortic calcification. Adrenal glands are normal. No hydronephrosis in either kidney. No obstructing renal or ureteral calculi. Mild prostate enlargement with evidence of bladder outlet obstruction. Mild diffuse bladder wall thic kening. LEFT dorsal bladder diverticulum measuring 1.6 x 1.9 cm. Sigmoid diverticulosis. No evidence of acute diverticulitis. No evidence of high-grade small or large bowel obstruction. Images degraded by motion in the abdomen and pelvis. Advanced joint arthritis LEFT hip with subchondral cystic change involving the acetabulum and femoral head. [id number] articulation. Mild chronic appearing compression deformity superior end plate L2. Numerous enlarged RIGHT iliac, and inguinal lymph nodes with slight induration in the RIGHT groin wit h inflammatory stranding. Recommend correlation for cellulitis. A few slightly enlarged LEFT femoral lymph nodes. Fat-containing LEFT inguinal hernia CT/CT abdomen pelvis wo con [id number] IMPRESSION: 1. Numerous enlarged RIGHT iliac chain femoral and inguinal lymph nodes. Small er LEFT femoral lymph nodes. These are nonspecific and may be reactive but neop lasm not excluded. Recommend correlation with clinical history. Largest lymph n odes measure approximately 2.5 cm on the RIGHT. Slight induration in the RIGHT groin. Recommend correlation for cellulitis or thrombophlebitis thrombophlebiti s. Consider RIGHT lower extremity ultrasound. 2. No hydronephrosis in either kidney. 3. Hepatomegaly. 4. Cholecystectomy. 5. Small esophageal hernia. 6. Advanced arthritis LEFT hip. 7. Mild prostate enlargement with evidence of mild bladder outlet obstruction. 8. LEFT dorsal bladder diverticulum described above.
--- NOTE | 2024-01-16 13:01 | PC.PHAR ---
Addendum entered by Pauline Lee 01/16/24 14:18: [facility]. Original Note: [facility] 01/16/24 12:57PM-WILL FOLLOW UP WHEN IT ARRIVES.
--- NOTE | 2024-01-16 14:14 | USR_ITS ---
PROCEDURE INFORMATION: Exam: US Duplex Lower Extremity Veins, Bilateral Exam date and time: 01/16/2024 4:15 PM Age: 83 years old Clinical indication: Swelling (edema) of limb; Lower extremity, bilateral; Additional info: Swelling TECHNIQUE: Imaging protocol: Real-time duplex ultrasound of the bilateral extremities with 2-D singletary scale, color Doppler flow and spectral waveform analysis including responses to compression and other maneuvers (when performed) with image documentation. Complete exam focused on the lower extremity veins. COMPARISON: US renal BI* [id number] 06/08/2022 12:43 PM FINDINGS: Veins: Patent without thrombus. Normal Doppler waveforms. Normal compressibility and/or augmentation response. US/[place] [id number] IMPRESSION: No evidence of acute DVT.
[2024-01-16 14:28] LABS: NT Pro B Type Natriuretic Pept 42 pg/mL (0-450)
--- NOTE | 2024-01-16 14:52 | PC.PHAR ---
PT HAD SEVERAL MEDICATIONS STILL ON HIS LIST FROM WHEN HE DISCHARGED FROM [facility]. TAKEN OFF HIS CURRENT LIST AND UPDATED [facility]. PT TOOK AM MEDICATIONS.
[2024-01-16] MEDS: sodium chloride 0.9% 1,000 ML 100 ML IV (15:44)
[2024-01-16] MEDS: meropenem 500 MG in sodium chloride 0.9% (plus) 50 ML 100 MG IV (15:44)
[2024-01-16] MEDS: heparin 5,000 unit/mL INJ 1 mL 5000 UNIT SUBCUT (15:44)
[2024-01-16 15:50] LABS: Vitamin B12 644 pg/mL (232-1245)
[2024-01-16 16:35] LABS: Estmated Average Glucose 192; Hemoglobin A1C 8.3 % (4.0-6.0)
[2024-01-16 19:07] LABS: PSA Screen - Urology 3.33 ng/mL (0-4)
[2024-01-16] MEDS: memantine 5 mg tablet PO (20:09)
[2024-01-16] MEDS: acetaminophen 500 mg Tablet PO (20:12)
[2024-01-17] VITALS (10 sets, daily range): BP systolic 100–166; BP diastolic 49–75; PULSE 63–88; RESP 15–22; TEMP 36.4–36.8; O2SAT 90–99
[2024-01-17] MEDS: sodium chloride 0.9% 1,000 ML 75 ML IV ×2 (02:04→15:10)
[2024-01-17] MEDS: meropenem 500 MG in sodium chloride 0.9% (plus) 50 ML 100 MG IV ×2 (02:06→15:10)
[2024-01-17] MEDS: heparin 5,000 unit/mL INJ 1 mL 5000 UNIT SUBCUT ×2 (02:08→15:10)
[2024-01-17 05:26] LABS: Basophils % 0.2 %; Hematocrit 41.9 % (37-53); Lymphocytes # 1.2 10^3/uL (0.8-4.8); Lymphocytes % 26.3 %; Mean Corpuscular HGB Conc 32.5 g/dL (30-55); Mean Corpuscular Hemoglobin 30.8 pg (27-33); Mean Corpuscular Volume 94.8 fl (82-101); Mean Platelet Volume 12.7 fL (7.4-10.4); Monocytes # 0.2 10^3/uL (0.2-0.9); Monocytes % 4.9 %; Neutrophils # 3.19 10^3/uL (1.8-7.7); Neutrophils % 67.8 %; Nucleated Red Blood Cells % 0 %; Platelet Count 120 10^3/cmm (157-399); Red Blood Count 4.42 10^6/uL (3.85-5.65); Red Cell Distribution Width 14.9 % (12.1-15.1); White Blood Count 4.71 10^3/uL (3.29-11.43)
[2024-01-17 05:44] LABS: Blood Urea Nitrogen 43 mg/dL (8-23); Calcium 7.8 mg/dL (8.5-10.5); Carbon Dioxide 24 mmol/L (22-29); Chloride 105 mmol/L (98-107); Glucose 116 mg/dL (65-115); Magnesium 1.7 mg/dL (1.7-2.3); Osmolality Calculated 304 mOsm/kg (285-295); Phosphorus 5.2 mg/dL (2.5-4.5); Sodium 141 mmol/L (136-145)
[2024-01-17 06:01] LABS: Creatine Phosphokinase 1238 U/L (39-308); Creatinine Clr Calc Pharmacy 43.9109
[2024-01-17 06:13] LABS: Slide Review Slide Review Perform
--- NOTE | 2024-01-17 09:10 | PC.CHAP ---
Pastoral Care Encounter/Spiritual Assessment Type of Contact [] Declined stab setter and driller visit [] Patient/Family/Request visit [] Outpatient visit [] Follow-up visit [] Physician referral [] Code/Alert [] Routine visit [] Staff referral [] Actively dying [x] Patient sleeping [] Family support [] [] Out of room [] Palliative care [] [] Receiving care in room [] Pre-surgical visit [] Trauma [] Long length of stay [] ICU visit [] Other: Relational/Emotional Strength [] Patient feels connected with others/family/visitors/staff [] Distress [] Loneliness/isolation [] Abandonment Spirituality of Patient [] Person of Kirstin [] Attends Bahai of their Kirstin [] Believes in Prayer [] Reads Bible or Advent materials [] There are Spiritual issues to be addressed Supply Coordinator Interventions [] Prayer [] Active listening [] Non-anxious presence [] Spiritual/emotional support [] Crisis/trauma care [] Spiritual counseling [] Bereavement support [] Provided bereavement packet [] Provided Bible/devotional materials [] Provided toy/stuffed animal, coloring book to patient or family member [] Provided Communion [] Anointing/[place] [] Salvation [] Completed spiritual assessment [] Other: Impact on Illness or Injury [] Angry [] Fearful [] Anxious [] Often cries [] Exhaustion [] Unable to work [] Unable to attend evangelical [] Unable to walk/stand [] Unable to read [] Unable to drive [] Unable to eat/drink [] Unable to sleep [] Unable to be with family [] Patient intubated [] Other: Summary Time spent with patient
[2024-01-17] MEDS: sennosides-docusate Tablet 1 TAB PO (09:19)
[2024-01-17] MEDS: memantine 5 mg tablet PO ×2 (09:19→20:30)
[2024-01-17] MEDS: aspirin 325 mg EC Tablet PO (09:20)
[2024-01-17] MEDS: amlodipine 5 mg Tablet PO (09:20)
--- NOTE | 2024-01-17 11:12 | P.PN_ITS ---
Subjective 2 Subjective: Mr. Maxwell is able to follow commands today Able to work with PT Due to hip joint arthritis not able to do much Patient is stating that he is not hungry still not eating food, I have asked his who is at the bedside to bring him anything he likes Urine color has improved Signs of dehydration improving CPK 1200 today Patient had high-grade fever required cold packs yesterday Vitals/I&O/Wt Last Vital Signs Temp 97.6 F 01/17/24 07:47 Pulse 63 01/17/24 08:28 Resp 16 01/17/24 08:28 BP 116/71 01/17/24 07:47 Pulse Ox 99 01/17/24 08:28 O2 Del Method Nasal Cannula 01/17/24 08:28 O2 Flow Rate 3 01/17/24 08:28 01/16/24 01/17/24 01/17/24 22:59 06:59 14:59 Intake Total 550 / 1600 1053.75 / 2653.75 Output Total 700 / 900 625 / 1525 Balance -150 / 700 428.75 / 1128.75 Weight last 48 hrs Weight 124.738 kg Weight 121.018 kg Weight 145.15 kg Physical Exam 2 Narrative: Awake and alert No active sign of meningitis GCS 15 Nonfocal neuroexam No active sign of stroke No signs of meningitis Able to follow commands appropriately Able to work with PT S1, S2 Hemodynamic stable Currently on 3 L Spears catheter with clear urine Urinary Catheter Management: Spears: Cath Placed During This Visit: yes Reason for Continuing Indwelling Catheter: Assist Healing of Perineal & Sacral Wounds- Incontinent Patients Urinary Catheter Date of Insertion: 01/16/24 Urinary Catheter Time of Insertion: 15:30 Data 01/17/24 05:00 01/17/24 05:00 Micro: Microbiology 01/16/24 11:04 Blood Culture - Preliminary Blood SPECIMEN COLLECTED 01/16/24 11:01 Blood Culture - Preliminary Blood SPECIMEN COLLECTED A&P Assessment and plan (1) Acute kidney injury superimposed on chronic kidney disease: (2) Dehydration: (3) Bladder outlet obstruction: (4) UTI (urinary tract infection): (5) Metabolic encephalopathy: (6) Dementia: (7) Delirium: Plan Acute delirium with underlying dementia Related to metabolic encephalopathy and UTI Continue meropenem Patient is showing mild worsening of CPK not eating well Urine cultures improved Signs of dehydration improving I would like to continue IV fluids for 1 more day and then discontinue over the weekend Continue DVT prophylaxis heparin Added memantine for his dementia at the bedside Requesting care home placement Patient did well with PT Full code Concern for septic joint at this point is low Attestations 2 Medical Necessity Statement*: half-way placement needed Diagnoses Acute kidney injury superimposed on chronic kidney disease N17.9; N18.9 Dehydration E86.0 Bladder outlet obstruction N32.0 UTI (urinary tract infection) N39.0 Metabolic encephalopathy G93.41 Dementia F03.90 Delirium R41.0
[2024-01-17 17:20] LABS: Glucose Point of Care 173 mg/dL (70-110)
[2024-01-17] MEDS: insulin lispro 100 unit/1 mL SUBCUT (18:17)
[2024-01-17] MEDS: pregabalin 150 mg Capsule 300 MG PO (20:30)
[2024-01-17 20:54] LABS: Glucose Point of Care 157 mg/dL (70-110)
[2024-01-18] VITALS (8 sets, daily range): BP systolic 161–174; BP diastolic 65–80; PULSE 83–92; RESP 16–22; TEMP 36.8–37.3; O2SAT 90–92
[2024-01-18] MEDS: meropenem 500 MG in sodium chloride 0.9% (plus) 50 ML 100 MG IV ×2 (02:57→14:57)
[2024-01-18] MEDS: heparin 5,000 unit/mL INJ 1 mL 5000 UNIT SUBCUT ×2 (02:57→14:59)
[2024-01-18] MEDS: sodium chloride 0.9% 1,000 ML 75 ML IV (02:57)
[2024-01-18 06:06] LABS: Basophils % 0.4 %; Eosinophils # 0.1 10^3/uL (0.0-0.8); Eosinophils % 1.9 %; Lymphocytes # 2.3 10^3/uL (0.8-4.8); Lymphocytes % 42.3 %; Mean Corpuscular HGB Conc 32.1 g/dL (30-55); Mean Corpuscular Hemoglobin 30.2 pg (27-33); Mean Corpuscular Volume 94.1 fl (82-101); Mean Platelet Volume 12.9 fL (7.4-10.4); Monocytes # 0.5 10^3/uL (0.2-0.9); Monocytes % 9.6 %; Neutrophils # 2.42 10^3/uL (1.8-7.7); Neutrophils % 44.9 %; Nucleated Red Blood Cells % 0 %; Platelet Count 120 10^3/cmm (157-399); Red Blood Count 4.57 10^6/uL (3.85-5.65); White Blood Count 5.39 10^3/uL (3.29-11.43)
[2024-01-18 06:24] LABS: Anion Gap 18.3 (5-19); Blood Urea Nitrogen 23 mg/dL (8-23); Calcium 7.7 mg/dL (8.5-10.5); Carbon Dioxide 22 mmol/L (22-29); Chloride 107 mmol/L (98-107); Creatinine Clr Calc Pharmacy 71.0432; Glucose 134 mg/dL (65-115); Osmolality Calculated 302 mOsm/kg (285-295); Potassium 4.3 mmol/L (3.5-5.1); Sodium 143 mmol/L (136-145)
[2024-01-18 06:25] LABS: Glucose Point of Care 123 mg/dL (70-110)
[2024-01-18 06:30] LABS: Creatine Phosphokinase 864 U/L (39-308)
[2024-01-18 06:55] LABS: Slide Review Slide Review Perform
[2024-01-18] MEDS: pregabalin 150 mg Capsule 300 MG PO ×2 (10:02→21:07)
[2024-01-18] MEDS: amlodipine 5 mg Tablet PO (10:02)
[2024-01-18] MEDS: aspirin 325 mg EC Tablet PO (10:02)
[2024-01-18] MEDS: memantine 5 mg tablet PO ×2 (10:02→21:07)
[2024-01-18] MEDS: sennosides-docusate Tablet 1 TAB PO (10:02)
[2024-01-18 10:59] LABS: Glucose Point of Care 153 mg/dL (70-110)
[2024-01-18] MEDS: insulin lispro 100 unit/1 mL SUBCUT ×2 (12:22→17:57)
--- NOTE | 2024-01-18 12:57 | P.PN_ITS ---
Subjective 2 Subjective: Patient is doing remarkably well Awake and alert Asking that if he could be released home He is not liking the idea of rehab or care home placement 83-year male who was admitted to the [facility] for management evaluation of metabolic encephalopathy related to UTI and dehydration, he was also diagnosed with BAYLEE, his IV fluid hydration made a significant difference, his mentation improved, BAYLEE improved as well, he remained hemodynamically stable, he spiked high-grade fever which improved with use of IV antibiotics,, blood cultures negative, urine culture showing gram-negative barb Vitals/I&O/Wt Last Vital Signs Temp 98.4 F 01/18/24 11:46 Pulse 84 01/18/24 11:46 Resp 16 01/18/24 11:46 BP 174/76 01/18/24 11:46 Pulse Ox 92 01/18/24 11:46 O2 Del Method Room Air 01/18/24 11:46 O2 Flow Rate 3 01/17/24 08:28 01/17/24 01/18/24 01/18/24 22:59 06:59 14:59 Intake Total 1136.25 / 1136.25 933.75 / 2070.00 622.5 / 622.5 Output Total 1000 / 1875 Balance 1136.25 / 261.25 -66.25 / 195.00 622.5 / 622.5 Weight last 48 hrs Weight 122.016 kg Weight 124.738 kg Weight 121.018 kg Physical Exam 2 Narrative: Awake and alert Signs of dehydration improving Lower extremity swelling Complaining of left hip joint pain GCS 15 nonfocal neuroexam Awake and alert Sitting in chair Hemodynamically stable S1, S2 Urinary Catheter Management: Spears: Cath Placed During This Visit: yes Reason for Continuing Indwelling Catheter: Accurate Measurement of Urinary Output in Critically Ill Patients Urinary Catheter Date of Insertion: 01/16/24 Urinary Catheter Time of Insertion: 15:30 Data 01/18/24 05:36 01/18/24 05:36 Micro: Microbiology 01/16/24 11:15 Urine Culture - Preliminary Urine,Clean Catch Gram Negative Rods 01/16/24 11:04 Blood Culture - Preliminary Blood NEGATIVE TO DATE 01/16/24 11:01 Blood Culture - Preliminary Blood NEGATIVE TO DATE A&P Assessment and plan (1) Acute kidney injury superimposed on chronic kidney disease: (2) Dehydration: (3) Bladder outlet obstruction: (4) UTI (urinary tract infection): (5) Metabolic encephalopathy: (6) Delirium: (7) Dementia: Plan Metabolic encephalopathy related to UTI: Improved Dehydration: Improving with IV fluid hydration IV fluids have been discontinued patient tolerating diet Hip joint arthritis: Continuing PT evaluation on daily basis Patient is stating that he does not want rehab or care home placement Full code BAYLEE: Improved with IV fluid hydration Hypertension: Added amlodipine, lisinopril, Type 2 diabetes continue insulin with sliding scale Continue IV antibiotics for 1 more day Bladder outlet obstruction, will need voiding trial before discharge Delirium with underlying dementia: Improving Attestations 2 Medical Necessity Statement*: Continue medical management Diagnoses Acute kidney injury superimposed on chronic kidney disease N17.9; N18.9 Dehydration E86.0 Bladder outlet obstruction N32.0 UTI (urinary tract infection) N39.0 Metabolic encephalopathy G93.41 Delirium R41.0 Dementia F03.90
[2024-01-18] MEDS: lisinopril 20 mg Tablet PO (14:58)
[2024-01-18 16:52] LABS: Glucose Point of Care 154 mg/dL (70-110)
[2024-01-18 21:19] LABS: Glucose Point of Care 169 mg/dL (70-110)
[2024-01-19] VITALS (7 sets, daily range): BP systolic 155–175; BP diastolic 70–79; PULSE 87–92; RESP 17–20; TEMP 36.5–37.2; O2SAT 88–92
[2024-01-19] MEDS: meropenem 500 MG in sodium chloride 0.9% (plus) 50 ML 100 MG IV ×2 (03:13→15:10)
[2024-01-19] MEDS: heparin 5,000 unit/mL INJ 1 mL 5000 UNIT SUBCUT ×2 (03:13→14:41)
[2024-01-19 06:24] LABS: Glucose Point of Care 176 mg/dL (70-110)
[2024-01-19 06:42] LABS: Basophils % 0.5 %; Eosinophils # 0.1 10^3/uL (0.0-0.8); Eosinophils % 2.3 %; Hematocrit 42.1 % (37-53); Lymphocytes # 2.5 10^3/uL (0.8-4.8); Lymphocytes % 43.9 %; Mean Corpuscular HGB Conc 32.8 g/dL (30-55); Mean Corpuscular Hemoglobin 30.5 pg (27-33); Mean Corpuscular Volume 93.1 fl (82-101); Mean Platelet Volume 12.6 fL (7.4-10.4); Monocytes # 0.8 10^3/uL (0.2-0.9); Monocytes % 13.9 %; Neutrophils # 2.17 10^3/uL (1.8-7.7); Neutrophils % 38.3 %; Nucleated Red Blood Cells % 0 %; Platelet Count 134 10^3/cmm (157-399); Red Blood Count 4.52 10^6/uL (3.85-5.65); Red Cell Distribution Width 14.9 % (12.1-15.1); White Blood Count 5.67 10^3/uL (3.29-11.43)
[2024-01-19 06:59] LABS: Anion Gap 19.3 (5-19); Blood Urea Nitrogen 15 mg/dL (8-23); Calcium 8.6 mg/dL (8.5-10.5); Carbon Dioxide 23 mmol/L (22-29); Chloride 108 mmol/L (98-107); Creatinine Clr Calc Pharmacy 85.5092; Glucose 188 mg/dL (65-115); Osmolality Calculated 308 mOsm/kg (285-295); Potassium 4.3 mmol/L (3.5-5.1); Sodium 146 mmol/L (136-145)
[2024-01-19] MEDS: pregabalin 150 mg Capsule 300 MG PO (08:00)
[2024-01-19] MEDS: amlodipine 5 mg Tablet 10 MG PO (08:00)
[2024-01-19] MEDS: aspirin 325 mg EC Tablet PO (08:00)
[2024-01-19] MEDS: sennosides-docusate Tablet 1 TAB PO (08:00)
[2024-01-19] MEDS: insulin lispro 100 unit/1 mL SUBCUT (08:01)
[2024-01-19] MEDS: memantine 5 mg tablet PO ×2 (08:01→22:11)
[2024-01-19] MEDS: lisinopril 20 mg Tablet PO (08:01)
[2024-01-19 09:27] LABS: Glucose Point of Care 176 mg/dL (70-110)
[2024-01-19] MEDS: insulin glargine 100 units/1 mL 20 UNIT SUBCUT (10:44)
[2024-01-19 11:11] LABS: Glucose Point of Care 212 mg/dL (70-110)
--- NOTE | 2024-01-19 11:21 | MRR_ITS ---
PROCEDURE INFORMATION: Exam: MR Head Without Contrast Exam date and time: 01/19/2024 1:06 PM Age: 83 years old Clinical indication: Altered mental status/memory loss and walking, difficulty; Age related cognitive decline; Additional info: CVA TECHNIQUE: Imaging protocol: Magnetic resonance imaging of the head without contrast. COMPARISON: CT head wo con* [id number] 01/16/2024 11:50 AM FINDINGS: Brain: Moderate T2/FLAIR subcortical and periventricular bright signal intensity of chronic small-vessel disease changes. No acute infarct. No extra-axial fluid collection. There are small bifrontal benign hygromas. Cerebral ventricles: Mild ventricular prominence compatible with ex vacuo type changes. Bones: Unremarkable. Paranasal sinuses: Mucous retention cyst right maxillary sinus. Remaining sinuses are clear. Mastoid air cells: There is trace left mastoid effusion. Orbital cavities: Unremarkable. Soft tissues: Unremarkable. Other findings: There is generalized volume loss compatible with age related atrophy. No acute hemorrhage or mass effect. MR/MR head wo con* [id number] IMPRESSION: 1. No acute abnormality. 2. Volume loss and small vessel disease changes are noted.
--- NOTE | 2024-01-19 11:22 | P.PN_ITS ---
Subjective 2 Subjective: Will request speech therapy Also will request MRI of the head for diagnostic purposes for possible stroke Patient is also struggling to work with PT secondary to hip arthritis I do not think he will be considered safe to return home I have added D5 LR because of his poor p.o. intake causing dehydration and hypernatremia Vitals/I&O/Wt Last Vital Signs Temp 97.9 F 01/19/24 11:11 Pulse 89 01/19/24 11:11 Resp 18 01/19/24 11:11 BP 175/73 01/19/24 11:11 Pulse Ox 92 01/19/24 11:11 O2 Del Method Room Air 01/19/24 11:11 O2 Flow Rate 3 01/17/24 08:28 01/18/24 01/19/24 01/19/24 22:59 06:59 14:59 Intake Total 290 / 912.5 50 / 962.5 Output Total 300 / 300 400 / 400 Balance 290 / 912.5 -250 / 662.5 -400 / -400 Weight last 48 hrs Weight 118.388 kg Weight 122.016 kg Physical Exam 2 Narrative: Awake and alert Slurred speech Able to follow commands Able to recognize his , able to tell me date of GCS 15 Able to move all of his extremities Gait is limited because of hip arthritis Noted swelling of lower extremities S1, S2 Hypertension Currently on room air Facial droop noted as well Patient is edentulous Urinary Catheter Management: Spears: Cath Placed During This Visit: yes Reason for Continuing Indwelling Catheter: Accurate Measurement of Urinary Output in Critically Ill Patients Urinary Catheter Date of Insertion: 01/16/24 Urinary Catheter Time of Insertion: 15:30 Data 01/19/24 06:30 01/19/24 06:30 A&P Assessment and plan (1) Acute kidney injury superimposed on chronic kidney disease: (2) Dehydration: (3) Bladder outlet obstruction: (4) UTI (urinary tract infection): (5) Metabolic encephalopathy: (6) Delirium: (7) Dementia: (8) Slurred speech: (9) CVA (cerebral vascular accident): Plan Slurred speech Concern for CVA Patient not a good candidate for MRI head because of metal, I will get MRI head screening to see if his metal would be considered compatible, patient is working with PT to limited extent due to hip arthritis Will request speech therapy as well He is edentulous As per the slurring of speech has been getting worse Bladder obstruction and BAYLEE: Improved Poor p.o. intake, anorexia: Hypernatremia Start D5 LR at lower rate Patient is considered unsafe to return home we are recommending halfway placement, I do not think he should be discharged at this point with his current condition Spears catheter has been removed Patient is voiding on his own Will do bladder scan on as-needed basis Patient is full code Will put him on dysphagia diet for now Hypertension: Amlodipine 10 mg along lisinopril 20 mg added Metabolic encephalopathy: Resolved Type II diabetic insulin Lantus 20 units which has been reduced from his home regimen dose Disposition: shelter Attestations 2 Medical Necessity Statement*: Continue medical management Diagnoses Acute kidney injury superimposed on chronic kidney disease N17.9; N18.9 Dehydration E86.0 Bladder outlet obstruction N32.0 UTI (urinary tract infection) N39.0 Metabolic encephalopathy G93.41 Delirium R41.0 Dementia F03.90 Slurred speech R47.81 CVA (cerebral vascular accident) I63.9
[2024-01-19] MEDS: dextrose 5%-lactated ringers 1,000 ML 30 ML IV (14:41)
[2024-01-19 16:32] LABS: Glucose Point of Care 162 mg/dL (70-110)
[2024-01-19 20:23] LABS: Glucose Point of Care 164 mg/dL (70-110)
[2024-01-20] VITALS: BP 145/78; PULSE 98; RESP 19; TEMP 36.7; O2SAT 90
[2024-01-20] MEDS: heparin 5,000 unit/mL INJ 1 mL 5000 UNIT SUBCUT (03:19)
[2024-01-20] MEDS: meropenem 500 MG in sodium chloride 0.9% (plus) 50 ML 100 MG IV (03:19)
[2024-01-20 03:37] LABS: Glucose Point of Care 167 mg/dL (70-110)
[2024-01-20 04:00] VITALS: BP 165/73; PULSE 91; RESP 20; TEMP 36.5; O2SAT 91
[2024-01-20 05:08] LABS: Basophils % 0.6 %; Eosinophils # 0.2 10^3/uL (0.0-0.8); Eosinophils % 2.8 %; Hematocrit 44.9 % (37-53); Lymphocytes # 1.9 10^3/uL (0.8-4.8); Lymphocytes % 34.4 %; Mean Corpuscular Hemoglobin 30.7 pg (27-33); Mean Corpuscular Volume 93.2 fl (82-101); Mean Platelet Volume 12.2 fL (7.4-10.4); Monocytes # 0.9 10^3/uL (0.2-0.9); Monocytes % 16.7 %; Neutrophils # 2.38 10^3/uL (1.8-7.7); Neutrophils % 44.2 %; Nucleated Red Blood Cells % 0.6 %; Platelet Count 148 10^3/cmm (157-399); Red Blood Count 4.82 10^6/uL (3.85-5.65); Red Cell Distribution Width 14.8 % (12.1-15.1); White Blood Count 5.38 10^3/uL (3.29-11.43)
[2024-01-20 05:26] LABS: Anion Gap 19.1 (5-19); Blood Urea Nitrogen 11 mg/dL (8-23); Calcium 8.3 mg/dL (8.5-10.5); Carbon Dioxide 25 mmol/L (22-29); Chloride 107 mmol/L (98-107); Creatinine Clr Calc Pharmacy 94.0792; Glucose 178 mg/dL (65-115); Osmolality Calculated 308 mOsm/kg (285-295); Potassium 4.1 mmol/L (3.5-5.1); Sodium 147 mmol/L (136-145)
--- NOTE | 2024-01-20 05:55 | PM.DCS ---
Discharge Providers Date of Admission: 01/16/24 14:03 Date of Discharge: January 20, 2024 Attending Provider at Admission: Keanu Machuca MD Attending Provider at Discharge: Keanu Machuca MD Primary Care Provider: TANMAY Rangel Diagnoses at Discharge Discharge Diagnosis (1) Acute kidney injury superimposed on chronic kidney disease: Status: Acute (2) Dehydration: Status: Acute (3) Bladder outlet obstruction: Status: Acute (4) UTI (urinary tract infection): Status: Acute (5) Metabolic encephalopathy: Status: Acute (6) Delirium: Status: Acute (7) Dementia: Status: Acute (8) Slurred speech: Status: Acute (9) CVA (cerebral vascular accident): Status: Acute Reason for Visit Reason for Visit: [facility] Hospital Course Hospital Course 83-year-old male who was admitted to the hospital for management evaluation of acute delirium with underlying dementia related to UTI patient spiked high-grade fever, his antibiotics were changed to meropenem, his fever subsided, blood cultures remain negative, urine culture growing pansensitive bacterial growth, CT scan of abdomen pelvis did not show any sign of hydronephrosis, he does have features of bladder outlet obstruction, Spears catheter was placed, patient showed good urine output, Spears catheter was discontinued, voiding trial was passed by the patient, patient is edentulous, does not wear his dentures, is concerned that if he is having a stroke, there were no focal deficits, MRI head did not show any acute CVA related changes, B12 was normal, he seems to have age-related cognitive impairment, I do believe his dementia is getting worse, he has poor appetite does not eat very well, I have reduced his dose of insulin, hemoglobin A1c is 8.3, patient has limited activity secondary to significant hip joint, is wanting to touch base with the [place] [facility] to get him evaluated. Patient does not want to go to senior care, is at the bedside stating that patient has not eaten well because he is not liking his stay in the hospital, they will like to go home, they are not optimistic for rehab at this point At the time of discharge I will reduce the dose of Lantus, discontinue glipizide and add levofloxacin for UTI Physical Exam Narrative: Nonfocal neuroexam Lethargic Able to answer simple question Verbally redirectable Hemodynamically stable Euvolemic Mild slurring of speech noted He is edentulous Facial droop present as well Urinary Catheter Management: Spears: Cath Placed During This Visit: yes Reason for Continuing Indwelling Catheter: Accurate Measurement of Urinary Output in Critically Ill Patients Urinary Catheter Date of Insertion: 01/16/24 Urinary Catheter Time of Insertion: 15:30 Discharge Data Studies Completed and Pending Completed Studies During Hospitalization Category Date Time Status CT abdomen pelvis wo con [id number] Stat Cat Scan 01/16/24 12:[address] head wo con* [id number] Stat Cat Scan 01/16/24 10:52 Completed XR chest 1V portable [id number] Stat Exams 01/16/24 10:52 Completed XR shoulder RT min 2V* [id number] Stat Exams 01/16/24 11:16 Completed MR head wo con* [id number] Routine MRI 01/19/24 11:21 [place] [id number] Routine Ultrasound 01/16/24 14:14 Completed Pending at discharge Category Date Time Status Blood Culture Stat Lab 01/16/24 11:04 Results TSH [Thyroid Stimulating Hormone] Routine Lab 01/20/24 05:55 Ordered Radiology Impressions Chest X-Ray 01/16/24 10:52 IMPRESSION: 1. Areas of plaque atelectasis in the mid and lower RIGHT lung. No consolidated acute infiltrates are suspected. 2. Mild cardiac enlargement with increased pulmonary vascularity. Shoulder X-Ray 01/16/24 11:16 IMPRESSION: 1. Degenerative changes. No fracture. 2. High riding humeral head probably indicates rotator cuff pathology. Abdomen/Pelvis CT 01/16/24 12:52 IMPRESSION: 1. Numerous enlarged RIGHT iliac chain femoral and inguinal lymph nodes. Smaller LEFT femoral lymph nodes. These are nonspecific and may be reactive but neoplasm not excluded. Recommend correlation with clinical history. Largest lymph nodes measure approximately 2.5 cm on the RIGHT. Slight induration in the RIGHT groin. Recommend correlation for cellulitis or thrombophlebitis thrombophlebitis. Consider RIGHT lower extremity ultrasound. 2. No hydronephrosis in either kidney. 3. Hepatomegaly. 4. Cholecystectomy. 5. Small esophageal hernia. 6. Advanced arthritis LEFT hip. 7. Mild prostate enlargement with evidence of mild bladder outlet obstruction. 8. LEFT dorsal bladder diverticulum described above. Venous Duplex 01/16/24 14:14 IMPRESSION: No evidence of acute DVT. Head MRI 01/19/24 11:21 IMPRESSION: 1. No acute abnormality. 2. Volume loss and small vessel disease changes are noted. Laboratory Results WBC 5.38 10^3/uL (3.29-11.43) 01/20/24 04:48 RBC 4.82 10^6/uL (3.85-5.65) 01/20/24 04:48 Hgb 14.80 g/dL (11.27-16.99) 01/20/24 04:48 Hct 44.9 % (37-53) 01/20/24 04:48 MCV 93.2 fl (82-101) 01/20/24 04:48 MCH 30.7 pg (27-33) 01/20/24 04:48 MCHC 33.0 g/dL (30-55) 01/20/24 04:48 RDW 14.8 % (12.1-15.1) 01/20/24 04:48 Plt Count 148 10^3/cmm (157-399) L 01/20/24 04:48 MPV 12.2 fL (7.4-10.4) H 01/20/24 04:48 Neut % (Auto) 44.2 % 01/20/24 04:48 Lymph % (Auto) 34.4 % 01/20/24 04:48 [place] % (Auto) 16.7 % 01/20/24 04:48 Eos % (Auto) 2.8 % 01/20/24 04:48 Baso % (Auto) 0.6 % 01/20/24 04:48 Neut # (Auto) 2.38 10^3/uL (1.8-7.7) 01/20/24 04:48 Lymph # (Auto) 1.9 10^3/uL (0.8-4.8) 01/20/24 04:48 [place] # (Auto) 0.9 10^3/uL (0.2-0.9) 01/20/24 04:48 Eos # (Auto) 0.2 10^3/uL (0.0-0.8) 01/20/24 04:48 Baso # (Auto) 0.0 10^3/uL (0.0-0.1) 01/20/24 04:48 Nucleated RBC % (auto) 0.6 % 01/20/24 04:48 Nucleated RBCs # 0.0 /100WBC 01/20/24 04:48 Sodium 147 mmol/L (136-145) H 01/20/24 04:48 Potassium 4.1 mmol/L (3.5-5.1) 01/20/24 04:48 Chloride 107 mmol/L (98-107) 01/20/24 04:48 Carbon Dioxide 25 mmol/L (22-29) 01/20/24 04:48 Anion Gap 19.1 (5-19) H 01/20/24 04:48 BUN 11 mg/dL (8-23) 01/20/24 04:48 Creatinine 0.8 mg/dL (0.7-1.2) 01/20/24 04:48 GFR Calculation Not Reportable 01/20/24 04:48 Glucose 178 mg/dL (65-115) H 01/20/24 04:48 POC Glucose 167 mg/dL (70-110) H 01/20/24 03:33 Estimat Average Glucose 192 01/16/24 10:52 Hemoglobin A1c 8.3 % (4.0-6.0) H 01/16/24 10:52 Calculated Osmolality 308 mOsm/kg (285-295) H 01/20/24 04:48 Lactic Acid 0.9 mmol/L (0.5-2.2) 01/16/24 10:52 Calcium 8.3 mg/dL (8.5-10.5) L 01/20/24 04:48 Phosphorus 5.2 mg/dL (2.5-4.5) H 01/17/24 05:00 Magnesium 1.7 mg/dL (1.7-2.3) 01/17/24 05:00 Total Bilirubin 0.3 mg/dL (0.15-1.2) 01/16/24 10:52 AST 87 U/L (0-40) H 01/16/24 10:52 ALT 41 U/L (0-41) 01/16/24 10:52 Alkaline Phosphatase 58 U/L (40-130) 01/16/24 10:52 Creatine Kinase 864 U/L (39-308) H* 01/18/24 05:36 C-Reactive Protein 7.0 mg/L (0.0-4.9) H 01/17/24 05:00 NT-Pro-B Natriuret Pep 42 pg/mL (0-450) 01/16/24 10:52 Total Protein 7.4 g/dL (6.6-8.7) 01/16/24 10:52 Albumin 4.0 g/dL (3.5-5.2) 01/16/24 10:52 Globulin 3.4 g/dL (1.3-4.6) 01/16/24 10:52 PSA Screen 3.33 ng/mL (0-4) 01/16/24 10:52 Vitamin B12 644 pg/mL (232-1245) 01/16/24 10:52 Urine Color Dark yellow (Yellow) 01/16/24 11:15 Urine Appearance Cloudy (CLEAR) A 01/16/24 11:15 Urine pH 5 (5-7) 01/16/24 11:15 Ur Specific [place] 1.020 (1.005-1.030) 01/16/24 11:15 Urine Protein Neg (Negative) 01/16/24 11:15 Urine Glucose (UA) Norm (Normal) 01/16/24 11:15 Urine Ketones Negative (Negative) 01/16/24 11:15 Urine Blood 2+ (Negative) H 01/16/24 11:15 Urine Nitrate Positive (Negative) H 01/16/24 11:15 Urine Bilirubin Neg (Negative) 01/16/24 11:15 Urine Urobilinogen Norm mg/dL (Negative) 01/16/24 11:15 Ur Leukocyte Esterase 2+ (Negative) H 01/16/24 11:15 Urine RBC 0-4 /hpf (0-2) H 01/16/24 11:15 Urine WBC 40-55 /hpf (0-5) H 01/16/24 11:15 Ur Squamous Epith Cells None /hpf (0-5) 01/16/24 11:15 Amorphous Sediment 1+ /hpf 01/16/24 11:15 Urine Bacteria 2+ /hpf (NONE) H 01/16/24 11:15 Hyaline Casts 0-4 /lpf H 01/16/24 11:15 Urine Mucus None /hpf 01/16/24 11:15 Vitals Last Vital Signs Temp 97.7 F 01/20/24 04:00 Pulse 91 01/20/24 04:00 Resp 20 H 01/20/24 04:00 BP 165/73 01/20/24 04:00 Pulse Ox 91 01/20/24 04:00 O2 Del Method Room Air 01/20/24 04:00 O2 Flow Rate 3 01/17/24 08:28 Discharge Plan Discharge Patient Disposition: Home Condition: Stable Prescriptions: New levofloxacin 750 mg tablet 750 mg PO DAILY 7 Days Qty: 7 0RF Continued venlafaxine 75 mg tablet 75 mg PO BID@08,20 lovastatin 40 mg tablet 40 mg PO DAILY@20 benazepril 20 mg tablet 20 mg PO DAILY@08 Rx Instructions: HOLD IF BP IS LESS THAN 100 OR PULSE LESS THAN 60 hydrochlorothiazide 25 mg tablet 25 mg PO DAILY@08 memantine 5 mg tablet 5 mg PO BID@08,20 (DME) knee immobilizer See Rx Instructions .Route .MEDSUPPLY Qty: 1 0RF Rx Instructions: As directed acetaminophen 500 mg Tablet 500 mg PO BID PRN (Reason: Pain) pregabalin [Lyrica] 300 mg Capsule 300 mg PO BID@08,20 fish,bora,flax oils-om3,6,9no1 [[place] 3-6-9 Complex] 400-400-400 mg Capsule 1 cap PO BID@08,20 multivitamin with folic acid [Thera] 400 mcg tablet 1 tab PO DAILY@08 hydrocodone-acetaminophen 5-325 mg tablet 1 tab PO Q6H PRN (Reason: pain) Qty: 14 0RF acarbose 50 mg Tablet 50 mg PO TID pioglitazone 30 mg Tablet 30 mg PO DAILY duloxetine 30 mg Capsule,Delayed Release(Dr/Ec) 30 mg PO DAILY potassium chloride 20 mEq Tablet Extended Release 10 meq PO DAILY Ozempic 0.25 mg or 0.5 mg (2 mg/3 mL) Pen Injector See Rx Instructions .ROUTE .COMPLEX Rx Instructions: Inject 0.25 mg subcutaneously every 7 days for 30 days, then increase to 0.5mg every 7 days for diabetes. Changed amlodipine 5 mg tablet 10 mg PO DAILY@08 Qty: 60 0RF Rx Instructions: HOLD IF BP IS LESS THAN 100 OR PULSE LESS THAN 60 insulin glargine [Lantus Solostar U-100 Insulin] 100 unit/mL (3 mL) insulin pen 20 unit SUBCUT QAM Qty: 15 0RF Discontinued glipizide 10 mg Tablet 10 mg PO TID Discharge Orders: Discharge Order (Routine); Ordered 01/20/24 Ordered By: Keanu Machuca Referrals: Christiana Holley FNP [Primary Care Provider] - 01/27/24 1:30 pm Patient Instructions: Altered Mental Status (ED), Opioid Safety Discharge Attestations Time Spent in Discharge Care*: greater than 30 min Quality Metrics Clinical Quality Measures [ No reported AMI, CVA or VTE this stay] Coding Level of Care Code Acute Code for Chg Fwd Diagnoses Acute kidney injury superimposed on chronic kidney disease N17.9; N18.9 Dehydration E86.0 Bladder outlet obstruction N32.0 UTI (urinary tract infection) N39.0 Metabolic encephalopathy G93.41 Delirium R41.0 Dementia F03.90 Slurred speech R47.81 CVA (cerebral vascular accident) I63.9
[2024-01-20 06:56] LABS: Thyroid Stimulating Hormone 2.71 uIU/mL (0.27-4.20)
[2024-01-20 08:00] VITALS: BP 165/69; PULSE 79; RESP 18; TEMP 36.7; O2SAT 93
--- NOTE | 2024-01-20 08:07 | PC.NURSE ---
pt dementia getting worse per MD. Pt refusing to have accu-check performed. Per 0400 lab, BS was 178. MD notified and stated it was ok and to not give the pt any coverage.
[2024-01-20] MEDS: sennosides-docusate Tablet 1 TAB PO (08:56)
[2024-01-20] MEDS: insulin glargine 100 units/1 mL 20 UNIT SUBCUT (08:56)
[2024-01-20] MEDS: memantine 5 mg tablet PO (08:56)
[2024-01-20] MEDS: amlodipine 5 mg Tablet 10 MG PO (08:56)
[2024-01-20] MEDS: aspirin 325 mg EC Tablet PO (08:56)
[2024-01-20] MEDS: lisinopril 20 mg Tablet PO (08:56)
[2024-01-20 11:13] LABS: Glucose Point of Care 151 mg/dL (70-110)
[2024-01-20 11:26] VITALS: BP 165/69; PULSE 79; RESP 18; TEMP 36.7; O2SAT 93
--- NOTE | 2024-01-20 11:45 | PC.NURSE ---
Discharge Note Patient discharged to [home] via [w/c to POV] accompanied by [his ]. Discharge instructions reviewed with patient and/or representative personal service. Mobile pharmacy medications and/or prescriptions provided. Belongings/home medications returned.
--- NOTE | 2024-01-20 11:46 | PC.SOCIAL ---
IMM Update pg 2 of IMM updated and reviewed w/ patients . Copy provided and copy dated, initialed and placed in chart.
[2024-01-20 12:48] VITALS: BP 165/68; PULSE 86; RESP 19; TEMP 36.4; O2SAT 91
== END 2024-01-20 11:46 | disposition home health service (06) | DRG 689 ==
LOC: ER 11:10 → MEDSURG 14:04
PROVIDERS: Admitting Provider Internal Medicine; Emergency Provider Family Medicine; PCP Nurse Practitioner; Visit Provider Internal Medicine
DX: N39.0 Urinary tract infection, site not specified (principal); G93.41 Metabolic encephalopathy; N17.9 Acute kidney failure, unspecified; E87.0 Hyperosmolality and hypernatremia; N18.9 Chronic kidney disease, unspecified; I12.9 Hypertensive chronic kidney disease with stage 1 through stage 4 chronic kidney disease, or unspecified chronic kidney disease; E11.22 Type 2 diabetes mellitus with diabetic chronic kidney disease; E86.0 Dehydration; Z79.4 Long term (current) use of insulin; N32.0 Bladder-neck obstruction; F03.90 Unspecified dementia, unspecified severity, without behavioral disturbance, psychotic disturbance, mood disturbance, and anxiety; M16.9 Osteoarthritis of hip, unspecified; Z79.85 Long-term (current) use of injectable non-insulin antidiabetic drugs
CPT/HCPCS: 36415; 36416; 51702; 70450; 70551; 71045; 73030; 74176; 80048; 80053; 81001; 82550; 82607; 82962; 83036; 83605; 83735; 83880; 84100; 84443; 85025; 86140; 87040; 87077; 87086; 87186; 93005; 93970; 96365; 96372; 97110; 97116; 97161; 97530; 99285; G0103; J0696; J1644; J1815; J2185; J7030; J7121

== ENCOUNTER 2024-01-23 10:04 | Inpatient (IN) | payer OTHER, MEDICARE, SELFPAY ==
[2024-01-23] VITALS (7 sets, daily range): BP systolic 123–198; BP diastolic 56–94; PULSE 98–108; RESP 16–20; TEMP 36.4–36.9; O2SAT 93–97; BMI 29.0
--- NOTE | 2024-01-23 10:09 | XRR_ITS ---
PROCEDURE INFORMATION: Exam: XR Chest Exam date and time: 01/23/2024 10:20 AM Age: 83 years old Clinical indication: Other: AMS TECHNIQUE: Imaging protocol: Radiologic exam of the chest. Views: 1 view. COMPARISON: CR XR chest 1V portable [id number] 01/16/2024 11:29 AM FINDINGS: Lungs: Pulmonary vascular congestion, unchanged from prior. No focal consolidation. Pleural spaces: No sizable pleural effusion or pneumothorax. Heart/Mediastinum: Stable cardiomegaly. Bones/joints: Unremarkable. XR/XR chest 1V portable [id number] IMPRESSION: No interval change.
--- NOTE | 2024-01-23 10:09 | CT_ITS ---
WS: [id number] CT HEAD NONCONTRAST HISTORY: ams TECHNIQUE: Contiguous axial imaging performed through the brain in 2.5 mm imaging. Bone and soft tiss ue windows. Sagittal and coronal reformats reviewed. All CT scans at [facility] use at least one of these dose optimization techniques: automated exposure control; mA and/or kV adjustment per pa tient size (includes targeted exams where dose is matched to clinical indication); or iterative recon struction. DLP: 2490.58 mGy.cm COMPARISON: 01/16/2024 No acute intracranial hemorrhage, midline shift or mass effect. No interval change since the most recent study of 01/16/2024. Moderate parenchymal volume loss and sma ll vessel ischemic disease. No mass or mass effect. Ventricles and extra-axial spaces are prominent. Ventricles: Prominent on the basis of atrophy. No inferior displacement of the cerebellar tonsils. Paranasal sinuses: Mucous retention cyst or polyp in the RIGHT maxillary sinus. No air-fluid levels. Mastoid air cells: Partial opacification of the mastoid air cells. Calvarium and scalp: Skull is intact with no soft tissue edema or swelling. CT/CT head wo con* [id number] IMPRESSION: 1. No acute intracranial hemorrhage or edema. 2. Moderate atrophy and small vessel ischemic disease. Stable head CT and sinc e 01/16/2024.
--- NOTE | 2024-01-23 10:19 | ED_ITS ---
HPI - General Adult 2 General: Chief complaint: Altered Mental Status Stated complaint: ams Time Seen by Provider: 01/23/24 10:05 Source: EMS Mode of arrival: EMS Limitations: altered mental status History of Present Illness: 83-year-old male presents here with from home with increased weakness along with altered mental status patient been seen here recently is was admitted and discharged January 19. He had been treated for UTI and confusion at that time as well. EMS states they have had multiple lift assist the last 3 days at the house. Patient today not able to get up here he is quite confused not able answer any my questions does have soled pants and dried feces on his hands. Review of Systems 2 General: Reports: ROS unobtainable due to mental status PFSH ED 2 PFSH: Medical History CVA (cerebral vascular accident) Slurred speech Delirium Rhabdomyolysis Dehydration Bladder outlet obstruction Acute kidney injury superimposed on chronic kidney disease Muscle injury UTI (urinary tract infection) Metabolic encephalopathy Dementia Diabetes 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 Knee cap dislocation Ankle arthritis Gall bladder disease Rotator cuff arthropathy Eye disorder Family History Mother CAD (coronary artery disease) Social History Smoking and tobacco/nicotine status: never used tobacco/nicotine Alcohol intake: former Physical Exam 2 Const: COMMON NORMALS: negative for patient oriented x3 HENMT: COMMON NORMALS: normocephalic and atraumatic HEAD & SCALP: n ormocephalic and atraumatic Eye: COMMON NORMALS: Equal, round and reactive pupils present and EOMs intact bilaterally PUPIL: Yes Equal, round and reactive pupils present Neck/C-Spine: COMMON NORMALS: full ROM and supple Chest: COMMONS NORMALS: normal inspection of the chest and normal palpation of entire chest wall Resp: COMMON NORMALS: normal respiratory effort, No retractions, No use of accessory muscles and clear to auscultation bilaterally AUSCULTATION: clear to auscultation bilaterally Cardio: COMMON NORMALS: regular rate, regular rhythm and No murmurs present (Cardio) RATE: regular rate RHYTHM: regular rhythm GI: COMMON NORMALS: Normal to inspection, nondistended, normoactive bowel sounds present, Soft to palpation, non-tender and no masses PALPATION: Yes Soft to palpation Extremity: COMMON NORMALS: normal to inspection and full ROM Neuro: COMMON NORMALS: moves all extremities and no focal motor deficits; negative for patient oriented x3 Psych: COMMON NORMALS: cooperative; negative for mental status grossly normal Skin: COMMON NORMALS: no rashes or lesions noted and no wounds GENERAL SKIN EXAM: no rashes or lesions noted Course 2 Vital Signs: Vital signs: Vital Signs Temperature 97.6 F 01/23/24 10:05 Pulse Rate 104 H 01/23/24 10:05 Blood Pressure 198/85 01/23/24 10:56 Pulse Oximetry 97 01/23/24 10:05 Oxygen Delivery Me thod Room Air 01/23/24 10:05 MDM - General Adult Medical Decision Making 83-year-old male who presented here with altered mental status he is quite confused here he has had multiple falls at home since being discharged and I believe that he is able to take care of himself or his 's been able to take care of him I spoke to the hospitalist will admit at this time and try to get home health or detention placement set up likely Medical Records I reviewed the patient's medical records. Lab Data I reviewed the patient's lab results. 01/23/24 10:42 01/23/24 10:42 Radiology Impressions Chest X-Ray 01/23/24 10:09 IMPRESSION: No interval change. Head CT 01/23/24 10:09 IMPRESSION: 1. No acute intracranial hemorrhage or edema. 2. Moderate atrophy and small vessel ischemic disease. Stable head CT and since 01/16/2024. Laboratory Results WBC 7.91 10^3/uL (3.29-11.43) 01/23/24 10:42 RBC 4.90 10^6/uL (3.85-5.65) 01/23/24 10:42 Hgb 15.20 g/dL (11.27-16.99) 01/23/24 10:42 Hct 44.9 % (37-53) 01/23/24 10:42 MCV 91.6 fl (82-101) 01/23/24 10:42 MCH 31.0 pg (27-33) 01/23/24 10:42 MCHC 33.9 g/dL (30-55) 01/23/24 10:42 RDW 14.6 % (12.1-15.1) 01/23/24 10:42 Plt Count 240 10^3/cmm (157-399) 01/23/24 10:42 MPV 12.5 fL (7.4-10.4) H 01/23/24 10:42 Neut % (Auto) 54.5 % 01/23/24 10:42 Lymph % (Auto) 24.9 % 01/23/24 10:42 Rice % (Auto) 18.2 % 01/23/24 10:42 Eos % (Auto) 0.9 % 01/23/24 10:42 Baso % (Auto) 0.5 % 01/23/24 10:42 Neut # (Auto) 4.31 10^3/uL (1.8-7.7) 01/23/24 10:42 Lymph # (Auto) 2.0 10^3/uL (0.8-4.8) 01/23/24 10:42 Rice # (Auto) 1.4 10^3/uL (0.2-0.9) H 01/23/24 10:42 Eos # (Auto) 0.1 10^3/uL (0.0-0.8) 01/23/24 10:42 Baso # (Auto) 0.0 10^3/uL (0.0-0.1) 01/23/24 10:42 Nucleated RBC % (auto) 0 % 01/23/24 10:42 Nucleated RBCs # 0.0 /100WBC 01/23/24 10:42 PT 13.50 SECONDS (12.1-14.9) 01/23/24 10:42 INR 1.00 (0.8-1.2) 01/23/24 10:42 Sodium 144 mmol/L (136-145) 01/23/24 10:42 Potassium 3.4 mmol/L (3.5-5.1) L 01/23/24 10:42 Chloride 99 mmol/L (98-107) 01/23/24 10:42 Carbon Dioxide 25 mmol/L (22-29) 01/23/24 10:42 Anion Gap 23.4 (5-19) H 01/23/24 10:42 BUN 25 mg/dL (8-23) H 01/23/24 10:42 Creatinine 1.1 mg/dL (0.7-1.2) 01/23/24 10:42 GFR Calculation Not Reportable 01/23/24 10:42 Glucose 238 mg/dL (65-115) H 01/23/24 10:42 Calculated Osmolality 310 mOsm/kg (285-295) H 01/23/24 10:42 Calcium 9.2 mg/dL (8.5-10.5) 01/23/24 10:42 Magnesium 1.8 mg/dL (1.7-2.3) 01/23/24 10:42 Total Bilirubin 1.0 mg/dL (0.15-1.2) 01/23/24 10:42 AST 66 U/L (0-40) H 01/23/24 10:42 ALT 50 U/L (0-41) H 01/23/24 10:42 Alkaline Phosphatase 61 U/L (40-130) 01/23/24 10:42 Ammonia 20 umol/L (16-60) 01/23/24 10:42 NT-Pro-B Natriuret Pep 208 pg/mL (0-450) 01/23/24 10:42 Total Protein 7.7 g/dL (6.6-8.7) 01/23/24 10:42 Albumin 3.9 g/dL (3.5-5.2) 01/23/24 10:42 Globulin 3.8 g/dL (1.3-4.6) 01/23/24 10:42 TSH 1.29 uIU/mL (0.27-4.20) 01/23/24 10:42 Urine Color Yellow (Yellow) 01/23/24 10:49 Urine Appearance Cloudy (CLEAR) A 01/23/24 10:49 Urine pH 5 (5-7) 01/23/24 10:49 Ur Specific [place] 1.020 (1.005-1.030) 01/23/24 10:49 Urine Protein 3+ (Negative) H 01/23/24 10:49 Urine Glucose (UA) 2+ (Normal) H 01/23/24 10:49 Urine Ketones 1+ (Negative) H 01/23/24 10:49 Urine Blood 3+ (Negative) H 01/23/24 10:49 Urine Nitrate Negative (Negative) 01/23/24 10:49 Urine Bilirubin 1+ (Negative) H 01/23/24 10:49 Urine Urobilinogen 1 mg/dL (Negative) H 01/23/24 10:49 Ur Leukocyte Esterase Negative (Negative) 01/23/24 10:49 Urine RBC 15-25 /hpf (0-2) H 01/23/24 10:49 Urine WBC 0-4 /hpf (0-5) H 01/23/24 10:49 Ur Squamous Epith Cells 0-4 /hpf (0-5) H 01/23/24 10:49 Amorphous Sediment 2+ /hpf 01/23/24 10:49 Urine Bacteria Trace /hpf (NONE) 01/23/24 10:49 Hyaline Casts 0-4 /lpf H 01/23/24 10:49 Urine Mucus 3+ /hpf 01/23/24 10:49 All radiology interpretation(s) finalized by discharge EKG Data EKG 1: I personally reviewed and interpreted this EKG as follows: EKG interpretation date: 01/23/24 EKG interpretation time: 10:37 Interpretation: sinus tach hr [address] or t wave abnormalities qrs 91 qtc 422 Computer generated interpretation: Chest X-Ray 01/23/24 10:09 IMPRESSION: No interval change. Head CT 01/23/24 10:09 IMPRESSION: 1. No acute intracranial hemorrhage or edema. 2. Moderate atrophy and small vessel ischemic disease. Stable head CT and since 01/16/2024. Discharge Plan Discharge Condition: Stable Prescriptions: No Action venlafaxine 75 mg tablet 75 mg PO BID@08,20 lovastatin 40 mg tablet 40 mg PO DAILY@20 benazepril 20 mg tablet 20 mg PO DAILY@08 Rx Instructions: HOLD IF BP IS LESS THAN 100 OR PULSE LESS THAN 60 hydrochlorothiazide 25 mg tablet 25 mg PO DAILY@08 memantine 5 mg tablet 5 mg PO BID@08,20 (DME) knee immobilizer See Rx Instructions .Route .MEDSUPPLY Qty: 1 0RF Rx Instructions: As directed acetaminophen 500 mg Tablet 500 mg PO BID PRN (Reason: Pain) pregabalin [Lyrica] 300 mg Capsule 300 mg PO BID@08,20 multivitamin with folic acid [Thera] 400 mcg tablet 1 tab PO DAILY@08 glipizide 10 mg Tablet 10 mg PO TID Glucosamine 500 mg Tablet 500 mg PO DAILY Rx Instructions: administer with a meal Fish Oil 1,000 mg (120 mg-180 mg) Capsule 2 cap PO TID Lantus Solostar U-100 Insulin 100 unit/mL (3 mL) insulin pen 50 unit SUBCUT QAM acarbose 50 mg Tablet 50 mg PO TID pioglitazone 30 mg Tablet 30 mg PO DAILY duloxetine 30 mg Capsule,Delayed Release(Dr/Ec) 30 mg PO DAILY potassium chloride 20 mEq Tablet Extended Release 10 meq PO DAILY Ozempic 0.25 mg or 0.5 mg (2 mg/3 mL) Pen Injector See Rx Instructions .ROUTE .COMPLEX Rx Instructions: Inject 0.25 mg subcutaneously every 7 days for 30 days, then increase to 0.5mg every 7 days for diabetes. levofloxacin 750 mg tablet 750 mg PO DAILY 7 Days Qty: 7 0RF amlodipine 5 mg tablet 10 mg PO DAILY@08 Qty: 60 0RF Rx Instructions: HOLD IF BP IS LESS THAN 100 OR PULSE LESS THAN 60 Referrals: Christiana Holley, [employer] [Primary Care Provider] - Patient Instructions: Altered Mental Status (ED) Coding Level of Care Code ED Feed Manager for [address]
--- NOTE | 2024-01-23 10:33 | PC.PHAR ---
PT IS [facility] MED L[facility] 01/23/24 10:30
--- NOTE | 2024-01-23 10:37 | ECG_ITS ---
[facility] Test Date: 2024-01-23 Pat Name: El Maxwell Department: Room: Gender: Male Clinic Nurse: : 1940 Requested By: Nicole Ely Order Number: [id number] Macy MD: Otis Merlos M.D. Measurements Intervals [place] Rate: 100 P: 95 VA: 162 QRS: 41 QRSD: 91 T: 51 QT: 365 QTc: 471 Interpretive Statements SINUS TACHYCARDIA WITH OCCASIONAL SUPRAVENTRICULAR PREMATURE COMPLEXES Compared to ECG 01/16/2024 10:52:41 Sinus rhythm no longer present Electronically Signed On 01-23-2024 12:21:09 CDT by Otis Merlos M.D. [email or web address]
[2024-01-23] MEDS: sodium chloride 0.9% 1,000 ML 999 ML IV (10:52)
[2024-01-23 10:54] LABS: Basophils % 0.5 %; Eosinophils # 0.1 10^3/uL (0.0-0.8); Eosinophils % 0.9 %; Hematocrit 44.9 % (37-53); Lymphocytes % 24.9 %; Mean Corpuscular HGB Conc 33.9 g/dL (30-55); Mean Corpuscular Volume 91.6 fl (82-101); Mean Platelet Volume 12.5 fL (7.4-10.4); Monocytes # 1.4 10^3/uL (0.2-0.9); Monocytes % 18.2 %; Neutrophils # 4.31 10^3/uL (1.8-7.7); Neutrophils % 54.5 %; Nucleated Red Blood Cells % 0 %; Platelet Count 240 10^3/cmm (157-399); Red Cell Distribution Width 14.6 % (12.1-15.1); White Blood Count 7.91 10^3/uL (3.29-11.43)
[2024-01-23 11:12] LABS: Ammonia 20 umol/L (16-60)
[2024-01-23 11:17] LABS: Protein Urine 3+ (Negative); Urine Appearance Cloudy (CLEAR); Urine Color Yellow (Yellow); pH Urine 5 (5-7)
[2024-01-23 11:18] LABS: Add Urine Microscopic? YES; Bilirubin Urine 1+ (Negative); Blood Urine 3+ (Negative); Glucose Urine UA 2+ (Normal); Ketones Urine 1+ (Negative); Leukocyte Esterase Urine Negative (Negative); Nitrate Urine Negative (Negative); Urobilinogen Urine 1 mg/dL (Negative)
[2024-01-23 11:23] LABS: Add Urine Culture? Yes; Amorphous Sediment Urine 2+ /hpf; Bacteria Urine TRACE /hpf; Hyaline Casts Urine 0-4 /lpf; Mucus Urine 3+ /hpf; RBC Urine 15-25 /hpf (0-2); Squamous Epithelial Cell Urine 0-4 /hpf (0-5); WBC Urine 0-4 /hpf (0-5)
[2024-01-23 11:23] LABS: Alanine Aminotransferase 50 U/L (0-41); Albumin Level 3.9 g/dL (3.5-5.2); Alkaline Phosphatase 61 U/L (40-130); Aspartate Amino Transferase 66 U/L (0-40); Blood Urea Nitrogen 25 mg/dL (8-23); Calcium 9.2 mg/dL (8.5-10.5); Carbon Dioxide 25 mmol/L (22-29); Chloride 99 mmol/L (98-107); Globulin 3.8 g/dL (1.3-4.6); Glucose 238 mg/dL (65-115); Magnesium 1.8 mg/dL (1.7-2.3); NT Pro B Type Natriuretic Pept 208 pg/mL (0-450); Osmolality Calculated 310 mOsm/kg (285-295); Sodium 144 mmol/L (136-145); Thyroid Stimulating Hormone 1.29 uIU/mL (0.27-4.20); Total Protein 7.7 g/dL (6.6-8.7)
[2024-01-23 11:26] LABS: Anion Gap 23.4 (5-19); Potassium 3.4 mmol/L (3.5-5.1)
[2024-01-23 12:00] LABS: Slide Review Slide Review Perform
[2024-01-23] MEDS: LORazepam 2 mg/mL INJ 10 mL MDV 1 MG IM (12:20)
[2024-01-23 13:34] LABS: Creatine Phosphokinase 524 U/L (39-308)
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
--- NOTE | 2024-01-23 13:40 | CT_ITS ---
WS: [id number] CT ABDOMEN AND PELVIS NONCONTRAST HISTORY: uti, AMS TECHNIQUE: Imaging performed through the abdomen and pelvis. Coronal and sagittal reformats are submi tted. All CT scans at [facility] use at least one of these dose optimization techniques: auto mated exposure control; mA and/or kV adjustment per patient size (includes targeted exams where dose is matched to clinical indication); or iterative reconstruction. DLP: 1291.77 mGy.cm COMPARISON: 01/16/2024 Lower thorax: Breathing motion artifact at the lung bases. Heart is slightly enlarged. Liver: Cirrhotic lobulated margins of the liver. No bile duct dilatation. Gallbladder: Prior cholecystectomy. Pancreas: Atrophy pancreas with motion artifact. Spleen: Normal. Adrenal glands: Normal. No mass. Right kidney: Normal size kidney with no mass or hydronephrosis. Left kidney: Normal size kidney with no mass or hydronephrosis. Aorta: Moderate to severe atherosclerosis abdominal aorta. No aneurysm. Atherosclerosis continues int o the common iliac arteries. No free fluid, intraperitoneal air or significant lymphadenopathy. GI tract: Normally distended stomach. No small bowel obstruction. No colon obstruction. Extensive div erticular disease in the distal colon. No acute diverticulitis. The appendix is normal. Abdominal wall: Diastases midline abdominal wall. There is an additional umbilical hernia containing fat only. Pelvis: Well-distended urinary bladder. Small bladder diverticulum extending posterior and to the LEF T. Mild prostate enlargement and heterogeneity. Reidentified are small LEFT inguinal lymph nodes. The re is less soft tissue stranding at the LEFT groin and the lymph nodes have decreased in size. Osseous structures: Concave superior endplate L2 fracture. Similar to the prior study. Severe, advanc ed degenerative changes at the LEFT hip with bone upon bone and subchondral cystic and sclerotic mai ges. CT/CT abdomen pelvis wo con [id number] IMPRESSION: 1. No acute or new findings within the abdomen or pelvis since 01/16/2024. 2. No renal obstruction. 3. Prior cholecystectomy. 4. No GI tract obstruction. 5. Diverticulosis without acute diverticulitis. 6. No appendicitis. 7. RIGHT inguinal lymph nodes with adjacent soft tissue stranding has slightly improved since 01/16/2024.
--- NOTE | 2024-01-23 14:00 | PC.NURSE ---
pt continuously removing monitoring, ripped IV out despite coband present.
[2024-01-23] MEDS: enoxaparin 40 mg/0.4 mL Syringe SUBCUT (15:33)
[2024-01-23] MEDS: cefTRIAXone 1,000 MG in sodium chloride 0.9% (plus) 50 ML 100 MG IV (15:33)
[2024-01-23] MEDS: sodium chloride 0.9% 1,000 ML 75 ML IV (15:33)
[2024-01-23 16:59] LABS: Glucose Point of Care 208 mg/dL (70-110)
[2024-01-23 20:26] LABS: Glucose Point of Care 178 mg/dL (70-110)
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
[2024-01-23] MEDS: haloperidol inj 5 mg/mL INJ 1 mL IVP (21:29)
[2024-01-24] VITALS (91 sets, daily range): BP systolic 104–198; BP diastolic 59–128; PULSE 67–131; RESP 18–40; TEMP 36–36.6; O2SAT 86–97
[2024-01-24] MEDS: LORazepam 2 mg/mL INJ 10 mL MDV IVP (01:53)
[2024-01-24] MEDS: sodium chloride 0.9% 1,000 ML 75 ML IV ×2 (04:53→14:13)
[2024-01-24 06:25] LABS: Glucose Point of Care 180 mg/dL (70-110)
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
--- NOTE | 2024-01-24 08:56 | PC.CHAP ---
Pastoral Care Encounter/Spiritual Assessment Type of Contact [] Declined short goods drier visit [] Patient/Family/Request visit [] Outpatient visit [] Follow-up visit [] Physician referral [] Code/Alert [] Routine visit [] Staff referral [] Actively dying [] Patient sleeping [] Family support [] [] Out of room [] Palliative care [] [x] Receiving care in room [] Pre-surgical visit [] Trauma [] Long length of stay [] ICU visit [] Other: Relational/Emotional Strength [] Patient feels connected with others/family/visitors/staff [] Distress [] Loneliness/isolation [] Abandonment Spirituality of Patient [] Person of Kirstin [] Attends Catholic of their Kirstin [] Believes in Prayer [] Reads Bible or Pentecostal materials [] There are Spiritual issues to be addressed Theatrical Dresser Interventions [] Prayer [] Active listening [] Non-anxious presence [] Spiritual/emotional support [] Crisis/trauma care [] Spiritual counseling [] Bereavement support [] Provided bereavement packet [] Provided Bible/devotional materials [] Provided toy/stuffed animal, coloring book to patient or family member [] Provided Communion [] Anointing/[place] [] Salvation [] Completed spiritual assessment [] Other: Impact on Illness or Injury [] Angry [] Fearful [] Anxious [] Often cries [] Exhaustion [] Unable to work [] Unable to attend adventism [] Unable to walk/stand [] Unable to read [] Unable to drive [] Unable to eat/drink [] Unable to sleep [] Unable to be with family [] Patient intubated [] Other: Summary Time spent with patient
[2024-01-24] MEDS: OLANZapine 10 mg VIAL IM (09:18)
[2024-01-24] MEDS: insulin lispro 100 unit/1 mL SUBCUT ×2 (09:21→17:24)
--- NOTE | 2024-01-24 10:50 | PC.PT ---
Pt not appropriate for PT evaluation at this time due to his excessive combativeness.
[2024-01-24] MEDS: haloperidol inj 5 mg/mL INJ 1 mL IM (10:51)
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
[2024-01-24] MEDS: LORazepam 2 mg/mL INJ 10 mL MDV IM (12:51)
[2024-01-24] MEDS: enoxaparin 40 mg/0.4 mL Syringe SUBCUT (12:51)
[2024-01-24] MEDS: dexmedeTOMIDine 0.9 % NaCL 400 MCG/100 ML PREMIX 7.45999999999999996 MCG IV ×2 (14:02→20:19)
[2024-01-24] MEDS: cefTRIAXone 1,000 MG in sodium chloride 0.9% (plus) 50 ML 100 MG IV (14:10)
[2024-01-24 17:17] LABS: Glucose Point of Care 175 mg/dL (70-110)
[2024-01-24 20:49] LABS: Glucose Point of Care 153 mg/dL (70-110)
--- NOTE | 2024-01-24 20:49 | PC.NURSE ---
CO2 Monitoring Order: Patient was abdominal breathing with saturations 90-91%, 2L NC were placed and Dr. Sanchez was contacted and gave a telephone order for CO2 monitoring while patient is sedated on precedex drip.
[2024-01-25] VITALS (58 sets, daily range): BP systolic 109–187; BP diastolic 47–122; PULSE 56–112; RESP 16–37; TEMP 35.9–37.3; O2SAT 91–99; BMI 33.6
[2024-01-25] MEDS: sodium chloride 0.9% 1,000 ML 75 ML IV ×2 (04:31→19:28)
[2024-01-25 04:46] LABS: Basophils % 0.3 %; Eosinophils # 0.3 10^3/uL (0.0-0.8); Hematocrit 41.7 % (37-53); Lymphocytes # 2.3 10^3/uL (0.8-4.8); Lymphocytes % 26.8 %; Mean Corpuscular HGB Conc 32.6 g/dL (30-55); Mean Corpuscular Hemoglobin 30.3 pg (27-33); Mean Corpuscular Volume 92.9 fl (82-101); Mean Platelet Volume 12.4 fL (7.4-10.4); Monocytes # 1.5 10^3/uL (0.2-0.9); Neutrophils # 4.46 10^3/uL (1.8-7.7); Neutrophils % 51.9 %; Nucleated Red Blood Cells % 0 %; Platelet Count 244 10^3/cmm (157-399); Red Blood Count 4.49 10^6/uL (3.85-5.65); Red Cell Distribution Width 14.9 % (12.1-15.1); White Blood Count 8.61 10^3/uL (3.29-11.43)
[2024-01-25 05:05] LABS: Creatine Phosphokinase 180 U/L (39-308)
[2024-01-25 05:07] LABS: Anion Gap 15.3 (5-19); Blood Urea Nitrogen 13 mg/dL (8-23); Calcium 8.1 mg/dL (8.5-10.5); Carbon Dioxide 27 mmol/L (22-29); Chloride 106 mmol/L (98-107); Creatinine Clr Calc Pharmacy 93.7854; Glucose 179 mg/dL (65-115); Osmolality Calculated 305 mOsm/kg (285-295); Potassium 3.3 mmol/L (3.5-5.1); Sodium 145 mmol/L (136-145)
[2024-01-25] MEDS: dexmedeTOMIDine 0.9 % NaCL 400 MCG/100 ML PREMIX 5.59999999999999964 MCG IV (06:34)
[2024-01-25 08:12] LABS: Glucose Point of Care 161 mg/dL (70-110)
[2024-01-25] MEDS: insulin lispro 100 unit/1 mL SUBCUT (08:24)
[2024-01-25] MEDS: hydroCHLOROthiazide 25 mg Tablet PO (08:25)
[2024-01-25] MEDS: lisinopril 20 mg Tablet PO (08:25)
--- NOTE | 2024-01-25 08:38 | PC.NURSE ---
Pt woke enough to take some sips of water. He cooperated with taking Hydralazine and Lisinopril PO. But he spit the senna and the amlodipine back out, several times. Senna and Amlodipine wasted.
--- NOTE | 2024-01-25 09:47 | P.PN_ITS ---
Subjective 2 Subjective: This morning is not aggressive, able to answer simple questions Able to except water Currently on Precedex 0.3 I have asked ICU nurse to wean off Precedex today Vitals/I&O/Wt Last Vital Signs Temp 96.8 F L 01/25/24 04:00 Pulse 85 01/25/24 08:17 Resp 20 H 01/25/24 08:17 BP 139/76 01/25/24 06:00 Pulse Ox 98 01/25/24 08:17 O2 Del Method Oxymask 01/25/24 08:17 O2 Flow Rate 3 01/25/24 08:17 01/24/24 01/25/24 01/25/24 22:59 06:59 14:59 Intake Total 129.946 / 646.547 3460.048 / 1917.108 Output Total 300 / 300 Balance 129.946 / 832.060 785.048 / 1617.108 Weight last 48 hrs Weight 112.5 kg Weight 110.2 kg Weight 74.616 kg Weight 97.069 kg Physical Exam 2 Narrative: Awake and alert Able to move extremities Able to take sip of water Precedex 0.3 Nonfocal neuroexam Sign of dehydration present Spears catheter in place S1, S2 Currently on 2 L nasal cannula Urinary Catheter Management: Spears: Cath Placed During This Visit: yes Reason for Continuing Indwelling Catheter: Accurate Measurement of Urinary Output in Critically Ill Patients Urinary Catheter Date of Insertion: 01/23/24 Urinary Catheter Time of Insertion: 13:30 Data 01/25/24 04:19 01/25/24 04:19 Micro: Microbiology 01/23/24 10:49 Urine Culture - Final Urine,Clean Catch A&P Assessment and plan (1) Failure to thrive: (2) Hypokalemia: (3) Bladder outlet obstruction: (4) UTI (urinary tract infection): (5) Delirium: (6) Dementia: (7) Recurrent falls: (8) Anorexia: Plan Hyperactive delirium with underlying dementia Wean off Precedex today Continue ICU management I will keep him on as needed Haldol and Ativan if needed Likely cause of delirium is dehydration and UTI Continue antibiotics and IV fluids He is normotensive Oxygen to be weaned off Will consult Dr. Parker for hip joint evaluation Full code Cardiac consistent carb diet May need Barbie psych evaluation Will need PT evaluation once awake and alert and more cooperative Attestations 2 Medical Necessity Statement*: Continue medical management Diagnoses Failure to thrive Hypokalemia E87.6 Bladder outlet obstruction N32.0 UTI (urinary tract infection) N39.0 Delirium R41.0 Dementia F03.90 Recurrent falls R29.6 Anorexia R63.0
--- NOTE | 2024-01-25 10:35 | PC.PT ---
Eval attempted. Pt was not appropriate for PT yesterday. Today he is more alert but agitated and Sarina in nursing said he has a fracture in lumbar spine and he was just secured due to pulling and trying to get up. Will wait on eval until it is more appropriate and patient can follow directions.
[2024-01-25 12:01] LABS: Glucose Point of Care 120 mg/dL (70-110)
--- NOTE | 2024-01-25 12:25 | PM.CONSULT ---
Providers/Reason For Consult Consulting Physician/Specialty*: Hospitalist Reason for Consult*: Hip pain Attending Physician: Keanu Machuca MD Primary Care Provider: TANMAY Rangel History of Present Illness History of Present Illness El Maxwell is a 83 year old male with severe osteoarthritis of the left hip. Patient has progressively worsening dementia. Patient is in restraints. Review of Systems Narrative: Unable to get a review of systems due to patient's mental status. Medications/Allergies Home Medications Medication Instructions Recorded Confirmed Last Taken Type benazepril 20 mg tablet 20 mg PO DAILY@10/17/20 01/23/24 08/21/21 History hydrochlorothiazide 25 mg tablet 25 mg PO DAILY@10/17/20 01/23/24 08/21/21 History lovastatin 40 mg tablet 40 mg PO DAILY@10/17/20 01/23/24 08/20/21 History venlafaxine 75 mg tablet 75 mg PO BID@08,10/17/20 01/23/24 08/21/21 08:00 History memantine 5 mg tablet 5 mg PO BID@08,04/17/21 01/23/24 08/21/21 08:00 History knee immobilizer #1 ea 08/02/21 01/23/24 Unknown Rx acetaminophen 500 mg tablet 500 mg PO BID PRN Pain 08/21/21 01/23/24 08/21/21 History multivitamin with folic acid 400 1 tab PO DAILY@08 08/21/21 01/23/24 08/21/21 History mcg tablet (Thera) pregabalin 300 mg capsule (Lyrica) 300 mg PO BID@08,08/21/21 01/23/24 08/21/21 08:00 History acarbose 50 mg tablet 50 mg PO TID 01/16/24 01/23/24 Unknown History duloxetine 30 mg capsule,delayed 30 mg PO DAILY 01/16/24 01/23/24 Unknown History release pioglitazone 30 mg tablet 30 mg PO DAILY 01/16/24 01/23/24 Unknown History potassium chloride 20 mEq 10 meq PO DAILY 01/16/24 01/23/24 Unknown History tablet,extended release semaglutide 0.25 mg or 0.5 mg (2 See Rx Instructions .Route .COMPLEX 01/16/24 01/23/24 Unknown History mg/3 mL) subcutaneous pen injector (Ozempic) amlodipine 5 mg tablet 10 mg (2 x 5 mg) PO DAILY@08 #60 01/20/24 01/23/24 08/21/21 Rx tabs levofloxacin 750 mg tablet 750 mg PO DAILY 7 days #7 tabs 01/20/24 01/23/24 Unknown Rx glipizide 10 mg tablet 10 mg PO TID 01/23/24 01/23/24 Unknown History glucosamine sulfate 500 mg tablet 500 mg PO DAILY 01/23/24 01/23/24 Unknown History (Glucosamine) insulin glargine 100 unit/mL (3 50 unit SUBCUT QAM 01/23/24 01/23/24 Unknown History mL) subcutaneous pen (Lantus Solostar U-100 Insulin) omega 3-odu-zps-fish oil 1,000 mg 2 cap PO TID 01/23/24 01/23/24 Unknown History (120 mg-180 mg) capsule (Fish Oil) Allergies Allergy/AdvReac Type Severity Reaction Status Date / Time morphine Allergy sees things Verified 01/23/24 10:24 Current Medications Generic Name Dose Route Start Last Admin Trade Name Freq PRN Reason Stop Dose Admin Amlodipine Besylate 10 mg 01/24/24 08:00 01/25/24 08:37 Amlodipine 10 Mg Tablet PO Not Given DAILY@08 [facility] Enoxaparin Sodium 40 mg 01/23/24 13:45 01/24/24 12:51 Enoxaparin 40 Mg/0.4 Ml Syringe SUBCUT 40 mg Q24H ERICA Administration Hydrochlorothiazide 25 mg 01/24/24 08:00 01/25/24 08:25 Hydrochlorothiazide 25 Mg Tablet PO 25 mg DAILY@08 ERICA Administration Sodium Chloride 1,000 mls @ 75 mls/hr 01/23/24 13:45 01/25/24 04:31 Sodium Chloride 0.9% IV 75 mls/hr .[id number] ERICA Administration Ceftriaxone Sodium 1,000 mg/ 50 mls @ 100 mls/hr 01/23/24 14:00 01/24/24 20:30 Sodium Chloride IV Infused Q24H ERICA Infusion Protocol Dexmedetomidine/Sodium Chloride 400 mcg in 100 mls @ 0 mls/hr 01/24/24 13:32 01/25/24 06:34 Precedex IV 0.3 mcg/kg/hr .Q0M ERICA 5.6 mls/hr Administration Protocol Per Protocol Insulin Human Lispro 0 unit 01/23/24 18:00 01/25/24 12:14 Insulin Lispro 100 Unit/1 Ml SUBCUT Not Given TIDWM [facility] Protocol Lisinopril 20 mg 01/24/24 08:00 01/25/24 08:25 Lisinopril 20 Mg Tablet PO 20 mg DAILY@08 ERICA Administration Quetiapine Fumarate 25 mg 01/24/24 21:00 01/24/24 21:35 Quetiapine 25 Mg Tablet PO Not Given BEDTIME [facility] Senna/Docusate Sodium 1 tab 01/24/24 09:00 01/25/24 08:36 Sennosides-Docusate Tablet PO Not Given DAILY ERICA PFSH Acute PFSH: Medical History (Updated 01/24/24 @ 12:14 by Keanu Machuca MD) Slurred speech Dementia Bladder outlet obstruction UTI (urinary tract infection) CVA (cerebral vascular accident) Delirium Rhabdomyolysis Dehydration Acute kidney injury superimposed on chronic kidney disease Muscle injury Metabolic encephalopathy Diabetes 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 Knee cap dislocation Ankle arthritis Gall bladder disease Rotator cuff arthropathy Eye disorder Family History Mother CAD (coronary artery disease) Social History Smoking and tobacco/nicotine status: never used tobacco/nicotine Alcohol intake: former Vitals/I&O/Wt Last Vital Signs Temp 96.8 F L 01/25/24 04:00 Pulse 85 01/25/24 08:17 Resp 20 H 01/25/24 08:17 BP 139/76 01/25/24 06:00 Pulse Ox 98 01/25/24 08:17 O2 Del Method Oxymask 01/25/24 08:17 O2 Flow Rate 3 01/25/24 08:17 01/24/24 01/25/24 01/25/24 22:59 06:59 14:59 Intake Total 129.946 / 006.126 8737.048 / 1917.108 Output Total 300 / 300 Balance 129.946 / 832.060 785.048 / 1617.108 Weight last 48 hrs Weight 248 lb 0.321 oz Weight 242 lb 15.19 oz Weight 164 lb 8 oz Weight 214 lb Physical Exam Narrative: Patient is in bed demented with restraints on. Urinary Catheter Management: Spears: Cath Placed During This Visit: yes Reason for Continuing Indwelling Catheter: Accurate Measurement of Urinary Output in Critically Ill Patients Urinary Catheter Date of Insertion: 01/23/24 Urinary Catheter Time of Insertion: 13:30 Data 01/25/24 04:19 01/25/24 04:19 Micro: Microbiology 01/23/24 10:49 Urine Culture - Final Urine,Clean Catch A&P Assessment and plan (1) Hip arthritis: Patient has severe osteoarthritis of the hip. With the patient's progressive dementia and current state he is not a surgical candidate. Coding Level of Care Code Acute Code for [facility] Diagnoses Hip arthritis M16.10
--- NOTE | 2024-01-25 12:30 | PC.NURSE ---
Pt refused lunch. Told nurse to stick the chocolate pudding up her ass.
[2024-01-25] MEDS: hyDRALAzine 20 mg/mL INJ 1 mL 5 MG IVP ×2 (13:19→19:20)
[2024-01-25] MEDS: cefTRIAXone 1,000 MG in sodium chloride 0.9% (plus) 50 ML 100 MG IV (13:21)
[2024-01-25] MEDS: enoxaparin 40 mg/0.4 mL Syringe SUBCUT (13:22)
--- NOTE | 2024-01-25 14:30 | PC.NURSE ---
Pt calling out for help. Upon entering room and asking about needs he replies get the Fuck out of here Then cries out for help again. Pt has been repositioned, asked about toileting, pain and need for a drink multiple times. His then came to visit he became more agitated telling her to get him out of here. He grabbed his stallings , while in medical restraints, and had the the tubes . He was pulling very hard on the inserted part. This nurse was able to finally, get him to release the tube to reconnect catheter tubes. He tried to pinch this nurse twice. Precedex gtt increased. He then continues to yell out. We repositioned at 's request. He tells staff to leave me alone. He yells at to get me out of here She then yells back NO . then comes to speak to this nurse he keeps asking me to get him out of here. Discussion about Dementia, hx of stroke and infections altering minds and not to take his comments personally, because he is very confused, ensued. stated she understood dementia. Her interactions with her do not indicate she fully understands. She went back in to visit with him and he started yelling at her again and called her foul names this time. She stood up by the bed shook her finger at him and yelled loudly back. No. I have loved you for 50 years. You are acting a fool. If you continue to act this way you will not be able to come back home. Pt's face red, he is yelling back. I attempted to redirect conversation. says to pt you know what. Bye. I came to visit you. Tam. Pt yelled back Byliz nguyen. I hope you don't come again' . Pt continues to yell out. Pt remains agitated. Otto IM admin.
[2024-01-25] MEDS: haloperidol inj 5 mg/mL INJ 1 mL IM (14:32)
[2024-01-25] MEDS: dexmedeTOMIDine 0.9 % NaCL 400 MCG/100 ML PREMIX 11.1899999999999995 MCG IV (16:34)
--- NOTE | 2024-01-25 17:30 | PC.NURSE ---
Went into room to scoot pt up in bed for meal. Pt had the catheter tubing disconnected again. Pericare and linen change provided. Pt did swing his hand at this nurse to hit during the linen change, no contact made. He also tried to pinch GABRIELA Sahu.
[2024-01-25 17:48] LABS: Glucose Point of Care 135 mg/dL (70-110)
--- NOTE | 2024-01-25 18:00 | PC.NURSE ---
Pt refused dinner and offered drinks. This time he just said No when asked if wanted a bite of --(each food listed).
--- NOTE | 2024-01-25 18:56 | PC.NURSE ---
Shift summary: Pt remains resting in bed this shift. He has yelled out numerous times to help him get out of here. He does not rest well, he calls out, mumbles and /or pulls at linens, wires and tubes. Thankfully he has not noticed his IV site. Pt does not follow directions most for the time, so getting him up this shift not safe. He would hold bed rails occasionally to help with turning/repositioning. He is oriented to self. Around noon he was able to be aware and state he was in the hospital. Heart rhythm : normal sinus rhythm to sinus tachycardia. He has had some elevated BP (see VS). He received PRN Hydralazine once this shift. He took 2 of his oral BP meds this am. He was using oxymask this am at beginning of shift, he kept trying to knock it off. It was removed around noon, his O2 sat were greater than 94% this afternoon. Urine output greater than the 1375 ml charted, as he had the catheter tubing apart 3 x today and the stallings leaked out onto bed. No Bm noted today. His came to visit him this afternoon, it seemed to agitate him more. Precedex gtt rate increased. Haldol IM also admin due to the agitation.
[2024-01-25] MEDS: LORazepam 2 mg/mL INJ 10 mL MDV IVP (19:19)
[2024-01-25] MEDS: quetiapine 25 mg Tablet PO (19:29)
--- NOTE | 2024-01-25 19:31 | PC.NURSE ---
Seroquel given early: patient was agitated and pulling at lines and restraints, precedex drip was increased and PO seroquel was given early as patient was alert and cooperative enough for oral medication.
[2024-01-25 21:51] LABS: Glucose Point of Care 179 mg/dL (70-110)
[2024-01-25] MEDS: dexmedeTOMIDine 0.9 % NaCL 400 MCG/100 ML PREMIX 13.0600000000000005 MCG IV (21:53)
[2024-01-26] VITALS (52 sets, daily range): BP systolic 122–187; BP diastolic 56–137; PULSE 76–123; RESP 16–40; TEMP 36.3–37.7; O2SAT 84–97; BMI 32.5; BMI 33.6
[2024-01-26] MEDS: dexmedeTOMIDine 0.9 % NaCL 400 MCG/100 ML PREMIX 13.0600000000000005 MCG IV ×2 (02:27→20:34)
[2024-01-26 05:53] LABS: Basophils % 0.4 %; Eosinophils # 0.2 10^3/uL (0.0-0.8); Eosinophils % 1.8 %; Hematocrit 41.1 % (37-53); Lymphocytes # 1.9 10^3/uL (0.8-4.8); Lymphocytes % 17.5 %; Mean Corpuscular HGB Conc 33.8 g/dL (30-55); Mean Corpuscular Hemoglobin 31.1 pg (27-33); Mean Corpuscular Volume 91.9 fl (82-101); Mean Platelet Volume 12.4 fL (7.4-10.4); Monocytes # 1.7 10^3/uL (0.2-0.9); Monocytes % 16.2 %; Neutrophils # 6.65 10^3/uL (1.8-7.7); Neutrophils % 62.8 %; Nucleated Red Blood Cells % 0 %; Platelet Count 269 10^3/cmm (157-399); Red Blood Count 4.47 10^6/uL (3.85-5.65); Red Cell Distribution Width 14.8 % (12.1-15.1); White Blood Count 10.59 10^3/uL (3.29-11.43)
[2024-01-26 06:06] LABS: Anion Gap 20.2 (5-19); Blood Urea Nitrogen 11 mg/dL (8-23); Calcium 8.4 mg/dL (8.5-10.5); Carbon Dioxide 23 mmol/L (22-29); Chloride 100 mmol/L (98-107); Glucose 198 mg/dL (65-115); Osmolality Calculated 295 mOsm/kg (285-295); Potassium 3.2 mmol/L (3.5-5.1); Sodium 140 mmol/L (136-145)
[2024-01-26 06:13] LABS: Creatine Phosphokinase 96 U/L (39-308)
[2024-01-26 08:03] LABS: Glucose Point of Care 161 mg/dL (70-110)
[2024-01-26] MEDS: insulin lispro 100 unit/1 mL SUBCUT (08:20)
[2024-01-26] MEDS: sodium chloride 0.9% 1,000 ML 75 ML IV (08:21)
--- NOTE | 2024-01-26 09:45 | PC.NURSE ---
Patient verbalized to Dr. Machuca that he wanted to sit in a chair and eat breakfast. Patient unable to answer orientation questions or follow commands for me at this time, Offered patient water and PO meds, patient did drink some water, but refused PO meds and breakfast. Decreased precedex to 0.2mcg/kg/hr and will attempt again for nutrition.
[2024-01-26] MEDS: hyDRALAzine 20 mg/mL INJ 1 mL 5 MG IVP ×3 (10:42→23:44)
--- NOTE | 2024-01-26 10:50 | PC.NURSE ---
Patient repeatedly yelling Ow unable to tell me were his pain is located, history indicates chronic spencer. Patient repeatedly hitting side rail with left hand despite education of potential injury and call light use. Patient repeating help me . Bladder scan performed, 0ml residual, Spears catheter flowing appropriately. Dr. Machuca notified and order received for Morphine 2mg IVP Q4HR PRN.
--- NOTE | 2024-01-26 10:55 | P.PN_ITS ---
Subjective 2 Subjective: Appreciate orthopedic evaluation Patient is still confused Wanting to get out of bed sitting in chair before he starts his breakfast Still on Precedex Nursing staff noticed hematuria without any clots Vitals/I&O/Wt Last Vital Signs Temp 97.7 F 01/26/24 08:00 Pulse 107 H 01/26/24 10:30 Resp 25 H 01/26/24 10:30 BP 166/119 01/26/24 10:30 Pulse Ox 95 01/26/24 10:30 O2 Del Method Room Air 01/26/24 10:30 O2 Flow Rate 3 01/25/24 11:00 01/25/24 01/26/24 01/26/24 22:59 06:59 14:59 Intake Total 1159.012 / 1353.437 129.314 / 7123.992 0141.604 / 1036.604 Output Total 2024 / 2024 300 / 2325 Balance -865.988 / -671.563 -170.686 / -790.796 8573.604 / 1036.604 Weight last 48 hrs Weight 109.004 kg Weight 112.5 kg Weight 110.2 kg Physical Exam 2 Narrative: Patient is oriented to himself only Slurred speech Currently on Precedex Able to answer only simple questions S1, S2 Sinus rhythm Hypertensive Hemodynamically stable Currently on room air Urinary Catheter Management: Spears: Cath Placed During This Visit: yes Reason for Continuing Indwelling Catheter: Accurate Measurement of Urinary Output in Critically Ill Patients Urinary Catheter Date of Insertion: 01/23/24 Urinary Catheter Time of Insertion: 13:30 Data 01/26/24 05:29 01/26/24 05:29 Micro: Microbiology 01/23/24 10:49 Urine Culture - Final Urine,Clean Catch A&P Assessment and plan (1) Recurrent falls: (2) Anorexia: (3) Delirium: (4) Dementia: (5) Slurred speech: (6) Failure to thrive: (7) UTI (urinary tract infection): (8) Bladder outlet obstruction: (9) Hematuria: Plan Hematuria Hemoglobin stable Hypertensive No need of intervention as of now Patient has a Spears catheter and he is confused tries to pull on his Spears catheter but this is most likely traumatic Delirium with underlying dementia Wean off Precedex no signs of stroke L2 fracture, hip arthritis, orthopedic requested They recommended medical management, not a candidate for surgery intervention Full code May need Barbie psych facility placement Requiring sedatives to keep him calm Attestations 2 Medical Necessity Statement*: Continue medical management Diagnoses Recurrent falls R29.6 Anorexia R63.0 Delirium R41.0 Dementia F03.90 Slurred speech R47.81 Failure to thrive UTI (urinary tract infection) N39.0 Bladder outlet obstruction N32.0 Hematuria R31.9
[2024-01-26] MEDS: LORazepam 2 mg/mL INJ 10 mL MDV IVP (11:05)
[2024-01-26] MEDS: morphine 4 mg/mL SDV 1 mL 2 MG IVP ×3 (11:24→21:33)
[2024-01-26 11:57] LABS: Glucose Point of Care 127 mg/dL (70-110)
[2024-01-26] MEDS: cefTRIAXone 1,000 MG in sodium chloride 0.9% (plus) 100 ML 200 MG IV (13:49)
[2024-01-26] MEDS: enoxaparin 40 mg/0.4 mL Syringe SUBCUT (13:49)
[2024-01-26] MEDS: dexmedeTOMIDine 0.9 % NaCL 400 MCG/100 ML PREMIX 9.33000000000000007 MCG IV (14:54)
[2024-01-26 17:10] LABS: Glucose Point of Care 147 mg/dL (70-110)
[2024-01-26 21:27] LABS: Glucose Point of Care 179 mg/dL (70-110)
[2024-01-27] VITALS (61 sets, daily range): BP systolic 107–216; BP diastolic 50–142; PULSE 92–150; RESP 15–40; TEMP 36.8–37.5; O2SAT 84–100; BMI 32.8
--- NOTE | 2024-01-27 | PC.NURSE ---
Mentation At beginning of shift, patient arousable to sound, making sounds, speech unclear. At around 2330, patient noted to be arousable only to pressure and falling back to sleep immediately. Precedex titrating down per protocol. Dr. Sanchez notified; order received for ABG.
[2024-01-27 00:06] LABS: ABG PCO2 33.8 mmHg (35-45); ABG PH Result 7.38 (7.35-7.45); Alveolar-Arterial Oxygen Gradi 5.5 mmHg (5-10); Arterial Blood Gas Hematocrit 43.8 % (42-52); Base Excess ABG -4.2 mmol/L (-2.0-2.0); Blood Gas Allen Test Pos; Blood Gas Operator Identificat JB; Blood Gas Sample Site Radial, right; Blood Gas Sample Type Arterial; Carboxyhemoglobin 1.3 %THgb (0.4-20.1); HGB O2 Sat 91.4 % (95-100); Ionized Calcium Level - ABG 1.1 mmol/L (1.1-1.4); Methemoglobin 0.4 % (0.4-1.5); Oxygen Device ROOM AIR; PO2 ABG 65.2 mmHg (80.0-100.0); PO2 FiO2 Ratio Arterial Blood 0; Potassium Level - ABG 2.9 mmol/L (3.5-5.0); Total Hemoglobin 14.3 g/dL (14-18)
[2024-01-27] MEDS: sodium chloride 0.9% 1,000 ML 75 ML IV (00:23)
[2024-01-27] MEDS: LORazepam 2 mg/mL INJ 10 mL MDV IVP ×3 (01:17→20:26)
--- NOTE | 2024-01-27 02:30 | PC.NURSE ---
Lasix Patient's oxygen saturation maintaining at 90% with periodic dips into the high 80s. NS going at 75 ml/hr, edema noted in bilateral lower extremities, urine output [address] Sanchez notified; orders received to hold maintenance fluids and administer 40 mg lasix IVP once. See MAR for details.
[2024-01-27] MEDS: FUROsemide 10 mg/mL SDV 4mL 40 MG IVP (02:46)
--- NOTE | 2024-01-27 03:02 | ECG_ITS ---
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 Measurements Intervals Joshua Rate: 116 P: 64 NC: 178 QRS: 38 QRSD: 101 T: 37 QT: 269 QTc: 375 Interpretive Statements SINUS TACHYCARDIA POSSIBLE RIGHT VENTRICULAR CONDUCTION DELAY [RSR (QR) IN V1/V2] NONSPECIFIC ST & T-WAVE ABNORMALITY ABNORMAL RHYTHM ECG Compared to ECG 01/23/2024 10:37:40 T-wave abnormality now present Electronically Signed On 01-27-2024 19:06:27 CDT by Cindy Vuong M.D. [email or web address]
[2024-01-27] MEDS: morphine 4 mg/mL SDV 1 mL 2 MG IVP ×5 (03:14→23:05)
[2024-01-27] MEDS: haloperidol inj 5 mg/mL INJ 1 mL IM ×2 (05:30→10:51)
[2024-01-27 06:22] LABS: Basophils % 0.3 %; Eosinophils # 0.1 10^3/uL (0.0-0.8); Eosinophils % 1.1 %; Hematocrit 43.6 % (37-53); Lymphocytes # 2.3 10^3/uL (0.8-4.8); Mean Corpuscular HGB Conc 33.5 g/dL (30-55); Mean Corpuscular Hemoglobin 30.3 pg (27-33); Mean Corpuscular Volume 90.5 fl (82-101); Mean Platelet Volume 12.4 fL (7.4-10.4); Monocytes # 2.2 10^3/uL (0.2-0.9); Monocytes % 18.2 %; Neutrophils # 7.18 10^3/uL (1.8-7.7); Neutrophils % 60.1 %; Nucleated Red Blood Cells % 0 %; Platelet Count 253 10^3/cmm (157-399); Red Blood Count 4.82 10^6/uL (3.85-5.65); Red Cell Distribution Width 15.1 % (12.1-15.1); White Blood Count 11.93 10^3/uL (3.29-11.43)
[2024-01-27 06:40] LABS: Blood Urea Nitrogen 10 mg/dL (8-23); Calcium 8.2 mg/dL (8.5-10.5); Carbon Dioxide 17 mmol/L (22-29); Chloride 104 mmol/L (98-107); Creatinine Clr Calc Pharmacy 83.3615; Glucose 194 mg/dL (65-115); Osmolality Calculated 306 mOsm/kg (285-295); Sodium 146 mmol/L (136-145)
[2024-01-27 06:46] LABS: Anion Gap 28.7 (5-19); Potassium 3.7 mmol/L (3.5-5.1)
[2024-01-27] MEDS: dexmedeTOMIDine 0.9 % NaCL 400 MCG/100 ML PREMIX 5.59999999999999964 MCG IV (07:03)
[2024-01-27 07:45] LABS: Glucose Point of Care 177 mg/dL (70-110)
[2024-01-27] MEDS: insulin lispro 100 unit/1 mL SUBCUT ×3 (08:01→17:17)
--- NOTE | 2024-01-27 09:09 | XRR_ITS ---
PROCEDURE INFORMATION: Exam: XR Chest Exam date and time: 01/27/2024 9:17 AM Age: 83 years old Clinical indication: Shortness of breath; Patient HX: AMS; Additional info: Labored breathing. No history of recent trauma or surgery is provided. TECHNIQUE: Imaging protocol: Radiologic exam of the chest. 1image(s) are provided. Views: 1 view. COMPARISON: 1. CR XR chest 1V portable [id number] 01/23/2024 10:20 AM 2. CR XR chest 1V portable [id number] 01/16/2024 11:29 AM FINDINGS: Lungs: There is some subsegmental atelectasis versus post inflammatory scarring demonstrated.No lobar consolidation is appreciated. There is some patchy opacification of the left lung base. This could represent some atelectasis versus early inflammation. Pleural spaces: There is some slight costophrenic angle blunting left more so than right.No pneumothorax is appreciated. Heart/Mediastinum: The cardiomediastinal silhouette is upper normal in size.This can be seen with central averaging as well as maribell enlargement.No cardiac decompensation is appreciated. Diaphragm: The hemidiaphragms are symmetric. Bones/joints: Osseous alignment is maintained. No interval displaced fracture or dislocation is appreciated.There is slightly decreased bone mineralization overall. There are degenerative changes of the spine and shoulders present. There is dextrocurvature versus positioning of the spine similar overall. Soft tissues: No radiopaque foreign body or subcutaneous emphysema is appreciated. Other findings: No other significant interval changes are appreciated. XR/XR chest 1V portable [id number] IMPRESSION: There is some patchy, bandlike opacification suggestive of some early inflammation of the left lung base. Overall, no interval lobar consolidation or cardiac decompensation is appreciated.
[2024-01-27] MEDS: sodium chloride 0.9% 1,000 ML 999 ML IV (09:17)
--- NOTE | 2024-01-27 09:30 | PC.CHAP ---
Pastoral Care Encounter/Spiritual Assessment Type of Contact [] Declined silk conditioner visit [] Patient/Family/Request visit [] Outpatient visit [] Follow-up visit [] Physician referral [] Code/Alert [x] Routine visit [] Staff referral [] Actively dying [x] Patient sleeping [] Family support [] [] Out of room [] Palliative care [] [] Receiving care in room [] Pre-surgical visit [] Trauma [] Long length of stay [x] ICU visit [] Other: Relational/Emotional Strength [] Patient feels connected with others/family/visitors/staff [] Distress [] Loneliness/isolation [] Abandonment Spirituality of Patient [] Person of Kirstin [] Attends Mandaen of their Kirstin [] Believes in Prayer [] Reads Bible or Shinto materials [] There are Spiritual issues to be addressed 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 Interventions [x] Prayer [] Active listening [] Non-anxious presence [] Spiritual/emotional support [] Crisis/trauma care [] Spiritual counseling [] Bereavement support [] Provided bereavement packet [] Provided Bible/devotional materials [] Provided toy/stuffed animal, coloring book to patient or family member [] Provided Communion [] Anointing/[place] [] Salvation [] Completed spiritual assessment [] Other: Impact on Illness or Injury [] Angry [] Fearful [] Anxious [] Often cries [] Exhaustion [] Unable to work [] Unable to attend gnosticism [] Unable to walk/stand [] Unable to read [] Unable to drive [] Unable to eat/drink [] Unable to sleep [] Unable to be with family [] Patient intubated [] Other: Summary Time spent with patient
[2024-01-27] MEDS: hyDRALAzine 20 mg/mL INJ 1 mL 5 MG IVP (10:21)
--- NOTE | 2024-01-27 11:35 | P.PN_ITS ---
Subjective 2 Subjective: Patient was tachypneic tachycardic and hypertensive X-ray showed vascular congestion with possibility of pneumonia, possible aspiration Afebrile Still not able to follow commands Off Precedex this morning Will need to evaluate for for Barbie psych placement Vitals/I&O/Wt Last Vital Signs Temp 99.5 F 01/27/24 07:30 Pulse 114 H 01/27/24 10:00 Resp 32 H 01/27/24 10:00 BP 177/82 01/27/24 10:00 Pulse Ox 91 01/27/24 10:00 O2 Del Method Room Air 01/27/24 10:00 O2 Flow Rate 3 01/25/24 11:00 01/26/24 01/27/24 01/27/24 22:59 06:59 14:59 Intake Total 1158.924 / 2357.153 202.461 / 2559.614 1011.014 / 1011.014 Output Total 850 / 850 1925 / 2775 Balance 308.924 / 1507.153 -1722.539 / -322.841 7467.014 / 1011.014 Weight last 48 hrs Weight 109.769 kg Weight 112.491 kg Weight 109.004 kg Physical Exam 2 Narrative: Patient is not able to follow commands Still very confused Tossing in bed Spears catheter in place Mild signs of fluid overload Crackles and rhonchi bibasilar Tachycardic Tachypneic Afebrile Room air Using abdominal muscles to breathe Urinary Catheter Management: Spears: Cath Placed During This Visit: yes Reason for Continuing Indwelling Catheter: Accurate Measurement of Urinary Output in Critically Ill Patients Urinary Catheter Date of Insertion: 01/23/24 Urinary Catheter Time of Insertion: 13:30 Data 01/27/24 05:56 01/27/24 05:56 A&P Assessment and plan (1) Failure to thrive: (2) Hematuria: (3) Bladder outlet obstruction: (4) UTI (urinary tract infection): (5) Delirium: (6) Dementia: (7) Slurred speech: (8) Recurrent falls: (9) Anorexia: (10) Aspiration pneumonia: (11) Pulmonary vascular congestion: Plan Off Precedex For tachypnea tachycardia will give labetalol on as-needed basis Add Zosyn on top of ceftriaxone for aspiration pneumonia Vascular congestion noted on chest x-ray will give 20 mg IV Lasix Patient carries a guarded prognosis he has not eaten in almost a week Seeking Barbie psych placement Guarded prognosis Afebrile without leukocytosis Suspicion for meningitis low MRI head unremarkable Separs catheter in place Full code Attestations 2 Medical Necessity Statement*: Continue medical management Diagnoses Failure to thrive Hematuria R31.9 Bladder outlet obstruction N32.0 UTI (urinary tract infection) N39.0 Delirium R41.0 Dementia F03.90 Slurred speech R47.81 Recurrent falls R29.6 Anorexia R63.0 Aspiration pneumonia J69.0 Pulmonary vascular congestion R09.89
[2024-01-27 11:38] LABS: Glucose Point of Care 155 mg/dL (70-110)
--- NOTE | 2024-01-27 11:55 | PC.SOCIAL ---
IMM Update Pg. 2 of IMM updated. Copy provided.
[2024-01-27] MEDS: FUROsemide 10 mg/mL SDV 2mL 20 MG IVP (12:02)
--- NOTE | 2024-01-27 12:15 | CT_ITS ---
WS: [id number] CTA HEAD AND NECK TECHNIQUE: Contrast enhanced CTA of the head and neck with coronal and sagittal reformatted images an d maximum intensity projection (MIP) images. NASCET criteria utilized. CLINICAL INFORMATION: AMS, possible right side weakness COMPARISON: None. DLP: 1747.[address] scans at [facility] use at least one of these dose optimization techniques: automated e xposure control; mA and/or kV adjustment per patient size (includes targeted exams where dose is matc hed to clinical indication); or iterative reconstruction. FINDINGS: Some images degraded by motion and respiratory artifact. No evidence intracranial hemorrhage or mass effect considering motion artifact. Mild small vessel luis nges. Moderate parenchymal volume loss. Vascular calcification. Fluid opacification mastoid air cells bilaterally. Small retention cyst or polyp RIGHT maxillary sinus. RIGHT: RIGHT common carotid artery is patent. Moderate calcified atheromatous plaque RIGHT carotid bu lb extending into the ICA with RIGHT ICA stenosis. Limited evaluation of the stenosis due to motion a rtifact at the bifurcation. RIGHT ICA remains patent to the skull base. Consider carotid ultrasound f or better assessment of the stenosis. LEFT: LEFT common carotid artery is patent. Moderate atheromatous plaque LEFT carotid bulb extending into the ICA. No significant LEFT ICA stenosis. LEFT ICA remains patent to the skull base. Codominant and patent vertebral arteries bilaterally. Basilar artery is patent. INTRACRANIAL CTA: Moderate intracranial atheromatous disease. Distal vertebral arteries are patent. Basilar artery is p atent. Persistent bilateral INSPECTOR BRAKE LINING's. Normal vascularity to the INSPECTOR BRAKE LINING territory bilaterally. Dense cavernous carotid calcification. Small LEFT A1 segment. Normal vascularity to the JOSE JUAN and MCA t erritories bilaterally. No proximal flow-limiting stenosis. CT/CT angio headneck* [id number] IMPRESSION: Evaluation is somewhat limited due to respiratory artifact and naa on artifact. 1. Dense calcified atheromatous plaque RIGHT carotid bulb extending into the I CA with at least moderate carotid stenosis although difficult to further assess due to respiratory artifact through the bifurcation. RIGHT ICA remains patent to the skull base. Consider ultrasound in further evaluation or repeat CTA when patient is more stable. 2. No significant LEFT ICA stenosis. 3. Moderate intracranial atheromatous disease. No flow-limiting proximal intra cranial stenosis
[2024-01-27] MEDS: sodium bicarbonate 8.4% 1 mEq/mL 50mL Syr 100 MEQ IVP (12:17)
[2024-01-27] MEDS: piperacillin-tazobactam 3.375 GM in sodium chloride 0.9% (plus) 50 ML IV ×2 (12:17→19:35)
[2024-01-27 12:27] LABS: ABG PCO2 31.6 mmHg (35-45); ABG PH Result 7.48 (7.35-7.45); Alveolar-Arterial Oxygen Gradi 5.7 mmHg (5-10); Arterial Blood Gas Hematocrit 42.8 % (42-52); Base Excess ABG 0.5 mmol/L (-2.0-2.0); Blood Gas Allen Test Pos; Blood Gas Operator Identificat CAK; Blood Gas Sample Site Radial, left; Blood Gas Sample Type Arterial; Carboxyhemoglobin 1.2 %THgb (0.4-20.1); HCO3 ABG 23.3 mmol/L (22-26); HGB O2 Sat 93.5 % (95-100); Ionized Calcium Level - ABG 1.1 mmol/L (1.1-1.4); Methemoglobin 0.4 % (0.4-1.5); Oxygen Device ROOM AIR; PO2 ABG 66.1 mmHg (80.0-100.0); PO2 FiO2 Ratio Arterial Blood 0; Potassium Level - ABG 2.7 mmol/L (3.5-5.0)
[2024-01-27 12:27] LABS: D Dimer 2.02 ug/mLFEU (0-0.59)
--- NOTE | 2024-01-27 13:03 | P.CONIM_ITS ---
Providers/Reason For Consult 2 Consulting Physician/Specialty*: Diaz Petit MD neurology and epilepsy Reason for Consult*: Agitation and altered mental status Attending Physician: Keanu Machuca MD Primary Care Provider: TANMAY Rangel History of Present Illness History of Present Illness El Maxwell is a 83 year old male who was admitted recently secondary to urinary tract infection and confusion. Patient was treated with IV antibiotics and discharged home on antibiotics but returned secondary to the reporting patient was even more confused and agitated. Patient was admitted to the intensive care unit and started on Precedex secondary to agitation. Patient was also reported to be given haloperidol. Patient has been off of Precedex for proxy 72 hours and remains confused. Therefore neurology consult was obtained. Head MRI performed on 01/19/2024 revealed no acute findings. Noncontrast head CT 01/23/2024 was reported to be negative for any acute findings. Arterial blood gases were obtained at midnight on 01/27/2024 and revealed pO2 of 65.2 pCO2 33.8 bicarb 20 pH 7.38. The patient was reported to be afebrile. On clinical examination today the patient was lying in bed. He is in soft restraints. Patient moving the left arm and left leg spontaneously. He will move the right leg and right arm occasionally but less than the left side. Patient breathing heavy using his accessory muscles. He does not follow commands and appears agitated. I recommended repeat ABGs stat and CT angiogram of the head and neck to assess for carotid or intracranial stenosis. Also recommended lab for thyroid profile and magnesium. Patient reported by the attending physician to not consume alcohol or other recreational drugs. Current medications Acarbose 50 mg p.o. 3 times daily Tylenol 500 mg p.o. twice daily, as needed pain Norvasc 10 mg p.o. daily Benazepril Prill 20 mg p.o. daily Cymbalta 30 mg p.o. daily Glipizide 10 mg p.o. 3 times daily Glucosamine sulfate 500 mg p.o. daily Hydrochlorothiazide 25 mg p.o. daily Lantus insulin 50 units subcutaneously daily Levofloxacin 750 mg p.o. daily x 7 days Lovastatin 40 mg p.o. daily Namenda 5 mg p.o. twice daily Multivitamin with folic acid 1 p.o. daily [place]-3 fatty acid 2 capsules 3 times daily Ozempic to be taken as directed Pioglitazone 30 mg p.o. daily Potassium chloride 10 mEq p.o. daily Lyrica 300 mg p.o. twice daily Effexor 75 mg p.o. twice daily Habits: Unknown Family history: Unknown Review of Systems 2 General: Reports: ROS unobtainable due to medical condition Medications/Allergies Home Medications Medication Instructions Recorded Confirmed Last Taken Type benazepril 20 mg tablet 20 mg PO DAILY@10/17/20 01/23/24 08/21/21 History hydrochlorothiazide 25 mg tablet 25 mg PO DAILY@10/17/20 01/23/24 08/21/21 History lovastatin 40 mg tablet 40 mg PO DAILY@10/17/20 01/23/24 08/20/21 History venlafaxine 75 mg tablet 75 mg PO BID@08,10/17/20 01/23/24 08/21/21 08:00 History memantine 5 mg tablet 5 mg PO BID@08,04/17/21 01/23/24 08/21/21 08:00 History knee immobilizer #1 ea 08/02/21 01/23/24 Unknown Rx acetaminophen 500 mg tablet 500 mg PO BID PRN Pain 08/21/21 01/23/24 08/21/21 History multivitamin with folic acid 400 1 tab PO DAILY@08/21/21 01/23/24 08/21/21 History mcg tablet (Thera) pregabalin 300 mg capsule (Lyrica) 300 mg PO BID@08,08/21/21 01/23/24 08/21/21 08:00 History acarbose 50 mg tablet 50 mg PO TID 01/16/24 01/23/24 Unknown History duloxetine 30 mg capsule,delayed 30 mg PO DAILY 01/16/24 01/23/24 Unknown History release pioglitazone 30 mg tablet 30 mg PO DAILY 01/16/24 01/23/24 Unknown History potassium chloride 20 mEq 10 meq PO DAILY 01/16/24 01/23/24 Unknown History tablet,extended release semaglutide 0.25 mg or 0.5 mg (2 See Rx Instructions .Route .COMPLEX 01/16/24 01/23/24 Unknown History mg/3 mL) subcutaneous pen injector (Ozempic) amlodipine 5 mg tablet 10 mg (2 x 5 mg) PO DAILY@08 #60 01/20/24 01/23/24 08/21/21 Rx tabs levofloxacin 750 mg tablet 750 mg PO DAILY 7 days #7 tabs 01/20/24 01/23/24 Unknown Rx glipizide 10 mg tablet 10 mg PO TID 01/23/24 01/23/24 Unknown History glucosamine sulfate 500 mg tablet 500 mg PO DAILY 01/23/24 01/23/24 Unknown History (Glucosamine) insulin glargine 100 unit/mL (3 50 unit SUBCUT QAM 01/23/24 01/23/24 Unknown History mL) subcutaneous pen (Lantus Solostar U-100 Insulin) omega [id number]-fish oil 1,000 mg 2 cap PO TID 01/23/24 01/23/24 Unknown History (120 mg-180 mg) capsule (Fish Oil) Current Medications Generic Name Dose Route Start Last Admin Trade Name Freq PRN Reason Stop Dose Admin Amlodipine Besylate 10 mg 01/24/24 08:00 01/27/24 08:09 Amlodipine 10 Mg Tablet PO Not Given DAILY@08 ERICA Enoxaparin Sodium 40 mg 01/23/24 13:45 01/26/24 13:49 Enoxaparin 40 Mg/0.4 Ml Syringe SUBCUT 40 mg Q24H ERICA Administration Haloperidol Lactate 5 mg 01/24/24 13:32 01/27/24 10:51 Haloperidol Inj 5 Mg/Ml Inj 1 Ml IM 5 mg Q6H PRN Administration AGITATION Hydralazine HCl 5 mg 01/24/24 14:37 01/27/24 10:21 Hydralazine 20 Mg/Ml Inj 1 Ml IVP 5 mg Q4H PRN Administration HYPERTENSION Hydrochlorothiazide 25 mg 01/24/24 08:00 01/27/24 08:09 Hydrochlorothiazide 25 Mg Tablet PO Not Given DAILY@08 ERICA Sodium Chloride 1,000 mls @ 75 mls/hr 01/23/24 13:45 01/27/24 02:24 Sodium Chloride 0.9% IV 0 mls/hr .[id number] ERICA Infusion Dexmedetomidine/Sodium Chloride 400 mcg in 100 mls @ 0 mls/hr 01/24/24 13:32 01/27/24 08:59 Precedex IV 0 mcg/kg/hr .Q0M ERICA 0 mls/hr Titration Protocol Per Protocol Ceftriaxone Sodium 1,000 mg/ 100 mls @ 200 mls/hr 01/26/24 14:00 01/26/24 14:29 Sodium Chloride IV Infused Q24H ERICA Infusion Protocol Piperacillin Sod/Tazobactam 50 mls @ 12.5 mls/hr 01/27/24 12:00 01/27/24 12:17 Sod 3.375 gm/ Sodium Chloride IV 12.5 mls/hr Q8H ERICA Administration Protocol Insulin Human Lispro 0 unit 01/23/24 18:00 01/27/24 12:17 Insulin Lispro 100 Unit/1 Ml SUBCUT 4 unit TIDWM [facility] Administration Protocol Lisinopril 20 mg 01/24/24 08:00 01/27/24 08:09 Lisinopril 20 Mg Tablet PO Not Given DAILY@08 ERICA Lorazepam 2 mg 01/24/24 13:32 01/27/24 08:33 Lorazepam 2 Mg/Ml Inj 10 Ml Mdv IVP 2 mg Q4H PRN Administration ANXIETY Morphine Sulfate 2 mg 01/26/24 10:59 01/27/24 08:01 Morphine 4 Mg/Ml Sdv 1 Ml IVP 2 mg Q4H PRN Administration SEVERE PAIN Quetiapine Fumarate 25 mg 01/24/24 21:00 01/26/24 21:31 Quetiapine 25 Mg Tablet PO Not Given BEDTIME [facility] Senna/Docusate Sodium 1 tab 01/24/24 09:00 01/27/24 08:32 Sennosides-Docusate Tablet PO Not Given DAILY [facility] PFSH Acute 2 PFSH: Medical History (Updated 01/27/24 @ 13:15 by Diaz Petit MD) Slurred speech Dementia Bladder outlet obstruction UTI (urinary tract infection) CVA (cerebral vascular accident) Delirium Rhabdomyolysis Dehydration Acute kidney injury superimposed on chronic kidney disease Muscle injury Metabolic encephalopathy Diabetes 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 Knee cap dislocation Ankle arthritis Gall bladder disease Rotator cuff arthropathy Eye disorder Family History Mother CAD (coronary artery disease) Social History Smoking and tobacco/nicotine status: never used tobacco/nicotine Alcohol intake: former Vitals/I&O/Wt Last Vital Signs Temp 99.5 F 01/27/24 07:30 Pulse 114 H 01/27/24 10:00 Resp 32 H 01/27/24 10:00 BP 177/82 01/27/24 10:00 Pulse Ox 91 01/27/24 10:00 O2 Del Method Room Air 01/27/24 10:00 O2 Flow Rate 3 01/25/24 11:00 01/26/24 01/27/24 01/27/24 22:59 06:59 14:59 Intake Total 1158.924 / 2357.153 202.461 / 2559.614 1011.014 / 1011.014 Output Total 850 / 850 1925 / 2775 Balance 308.924 / 1507.153 -1722.539 / -459.902 7980.014 / 1011.014 Weight last 48 hrs Weight 242 lb Weight 248 lb Weight 240 lb 5 oz Physical Exam 2 Narrative: The patient is arousable but confused. He is moving the left side and occasionally the right side spontaneously. Patient has less movement involving the right arm and right leg compared to the left side. Pupils 3 mm appear to be reactive to light. Extraocular movements could not be assessed secondary to lack of patient cooperation. Patient moaning. Throat clear. Patient breathing heavily and using his accessory muscles of his abdomen. Respiration rate 32 plantar responses flexor bilaterally. There is no clonus. Sensory examination intact to pain. Lungs revealed no obvious wheezing. Extremities were negative for cyanosis. Heart revealed increased pulse of 114. Blood pressure 177/82. Temperature 99.5 ?F Urinary Catheter Management: Spears: Cath Placed During This Visit: yes Reason for Continuing Indwelling Catheter: Accurate Measurement of Urinary Output in Critically Ill Patients Urinary Catheter Date of Insertion: 01/23/24 Urinary Catheter Time of Insertion: 13:30 Data 01/27/24 05:56 01/27/24 05:56 A&P Assessment and plan (1) Encephalopathy acute: Impression: 1. Acute encephalopathy 2. Questionable right-sided weakness 3. Decreased O2 saturation/ABGs 4. Urinary tract infection, status post treatment Plan: 1. Recommend obtaining repeat arterial blood gases 1a. Recommend obtaining lab for thyroid profile and magnesium 2. Recommend CT angiogram of the head and neck to assess for carotid or vertebral artery stenosis 3. Consider holding Cymbalta and Effexor in case patient experiencing early signs of serotonin syndrome 4. Determine if patient was taking Lyrica at home (acute discontinuation of Lyrica can be associated with change in mental status and agitation) 5. Recommend repeat noncontrast head CT to further assess for stroke involving the left hemisphere if the above studies are unrevealing and if the patient's symptoms do not improve in the next 24 hours. (2) Right sided weakness: Consult Attestations 2 Medical Necessity Statement: The patient was evaluated by neurology for altered mental status Coding Level of Care Code 04225 Diagnoses Encephalopathy acute G93.40 Right sided weakness R53.1
[2024-01-27 13:09] LABS: Free T4 Free Thyroxine 1.96 ng/dL (0.82-1.77); Magnesium 1.4 mg/dL (1.7-2.3); T3 Free 2.4 PG/ML (2.0-4.4); Thyroid Stimulating Hormone 0.95 uIU/mL (0.27-4.20)
[2024-01-27] MEDS: iohexol 350 mg/mL 500 mL Btl (per mL) IV (13:28)
--- NOTE | 2024-01-27 14:35 | PC.NURSE ---
Event: Patient brought for CTA in ICU bed on room air. HOB at 30 degrees,with assistance from second RN for transport. Patient in restraints for patient safety, pulling at Spears catheter and IV access. Patient transferred to CT table, 2L NC applied for patient comfort while laying flat for scan. O2 96% on monitor. Much movement from patient. Upon transfer back to room in ICU, oxygen saturation began to decline, upon entry to patient room O2 70% on monitor, 6L NC applied and patient O2 dropped further, RT called stat, Ambu bag in use as patient cyanotic and RR shallow, Patient recovered to low 80's RT placed O2, patient recovered to low 90's. Order from Dr. Machuca for Bipap obtained. This nurse in room with patient for patient safety until personal security specialist available. Patient is calm at this time. See documented stable vitals.
[2024-01-27] MEDS: cefTRIAXone 1,000 MG in sodium chloride 0.9% (plus) 100 ML 200 MG IV (15:36)
[2024-01-27] MEDS: enoxaparin 40 mg/0.4 mL Syringe SUBCUT (16:01)
--- NOTE | 2024-01-27 16:08 | PC.NURSE ---
is at bedside and states she has spoken with her oldest son and her [id number] and decision for code status to be changed to AND has been made. Dr. Machuca notified of these wishes.
[2024-01-27 18:12] LABS: Glucose Point of Care 154 mg/dL (70-110)
[2024-01-27] MEDS: quetiapine 25 mg Tablet PO (20:31)
[2024-01-27 20:49] LABS: Glucose Point of Care 121 mg/dL (70-110)
[2024-01-28] VITALS (60 sets, daily range): BP systolic 101–179; BP diastolic 54–114; PULSE 87–116; RESP 2–41; TEMP 36.2–37.1; O2SAT 90–100
[2024-01-28] MEDS: LORazepam 2 mg/mL INJ 10 mL MDV IVP ×5 (00:26→17:47)
[2024-01-28] MEDS: haloperidol inj 5 mg/mL INJ 1 mL IM ×3 (01:53→14:02)
[2024-01-28] MEDS: morphine 4 mg/mL SDV 1 mL 2 MG IVP ×5 (03:14→20:34)
[2024-01-28] MEDS: piperacillin-tazobactam 3.375 GM in sodium chloride 0.9% (plus) 50 ML IV ×3 (03:23→20:17)
--- NOTE | 2024-01-28 05:20 | PC.NURSE ---
Patient has remained 1:1 for safety this shift. Has largely been very anxious, frequent moaning, often grabbed his right hip, has attempted to rub bipap mask off on pillows, and attempted to pull stallings. Attempted very frequent position changes for comfort, and patient fidgeted until he was sideways in bed and quickly was able to have feet dangling off of bed if no intervention. Administered PRN IV MS x3, IV lorazepam x3, and IM Haldol x1 this shift for anxiousness and s/s of pain. Patient has had occasional rest periods of approx 15 min, and one rest period of one hour later in shift. Has remained responsive to painful stimuli only, no response when asked questions, unable to follow any commands. Has frequent movement of left arm and leg, and full ROM of left arm and leg but less frequent voluntary movement than right side. Pupils have remained reactive, but unable to track movement purposefully. Respiratatory rate has varied from 18-36 per min, has had continuous use of abdominal muscles, remained on bipap, and oxygen saturation has remained upper 90's% with 30% O2. Remains in soft restraints due to attempted removal of tubes, lines, and bipap. Restraints released frequently and active ROM allowed within safety limitations with no combative behavior.
[2024-01-28 05:32] LABS: Basophils # 0.1 10^3/uL (0.0-0.1); Basophils % 0.6 %; Eosinophils # 0.1 10^3/uL (0.0-0.8); Hematocrit 44.5 % (37-53); Lymphocytes # 1.8 10^3/uL (0.8-4.8); Lymphocytes % 16.2 %; Mean Corpuscular HGB Conc 31.2 g/dL (30-55); Mean Corpuscular Hemoglobin 30.5 pg (27-33); Mean Corpuscular Volume 97.6 fl (82-101); Monocytes # 2.4 10^3/uL (0.2-0.9); Monocytes % 21.8 %; Neutrophils # 6.41 10^3/uL (1.8-7.7); Neutrophils % 59.4 %; Nucleated Red Blood Cells % 0 %; Platelet Count 329 10^3/cmm (157-399); Red Blood Count 4.56 10^6/uL (3.85-5.65); Red Cell Distribution Width 16.1 % (12.1-15.1); White Blood Count 10.81 10^3/uL (3.29-11.43)
[2024-01-28 05:54] LABS: Blood Urea Nitrogen 12 mg/dL (8-23); Calcium 8.4 mg/dL (8.5-10.5); Carbon Dioxide 17 mmol/L (22-29); Chloride 103 mmol/L (98-107); Glucose 144 mg/dL (65-115); Osmolality Calculated 304 mOsm/kg (285-295); Sodium 146 mmol/L (136-145)
[2024-01-28 05:58] LABS: Anion Gap 29.2 (5-19); Potassium 3.2 mmol/L (3.5-5.1)
[2024-01-28] MEDS: insulin lispro 100 unit/1 mL SUBCUT ×2 (07:53→17:31)
[2024-01-28] MEDS: lisinopril 20 mg Tablet PO (07:54)
[2024-01-28] MEDS: amlodipine 10 mg Tablet PO (07:54)
[2024-01-28 08:05] LABS: Glucose Point of Care 157 mg/dL (70-110)
--- NOTE | 2024-01-28 08:38 | USCV_ITS ---
Alonsodieudonne El Age: 83 Gender: M : 1940 Exam Date: 01/28/2024 12:15 Ordering Phys: Keanu Machuca MD Technologist: Exam Location: [facility] [place] Indication: bilat edema PROCEDURES: The venous duplex Doppler examination of both lower extremities was performed in the standard fashion. The following venous structures were evaluated: common femoral vein, profunda vein, proximal portion of the greater saphenous vein, superficial femoral vein, and the popliteal vein. In addition, the posterior tibial and peroneal trunk were evaluated. FINDINGS: Normal 2-D Doppler and augmentation and compressibility throughout the lower extremity venous structures. Additional imaging through the proximal calf veins also reveals no thrombus. Limited evaluation of the greater saphenous vein is patent with no thrombus. CONCLUSIONS No evidence of right lower extremity DVT. No evidence of left lower extremity DVT. Tarun Guerrero MD (Electronically Signed) Final Date: 28 January 2024 14:18 S
--- NOTE | 2024-01-28 08:38 | CT_ITS ---
WS: [id number] CTA OF THE CHEST WITH PULMONARY EMBOLISM PROTOCOL TECHNIQUE: High-resolution contrast enhanced CTA of the chest with coronal and sagittal reformatted i mages with pulmonary embolism protocol. MIP images are also reviewed. CLINICAL INFORMATION: ST DLP: 469.[address] scans at [facility] use at least one of these dose optimization techniques: automated e xposure control; mA and/or kV adjustment per patient size (includes targeted exams where dose is matc hed to clinical indication); or iterative reconstruction. FINDINGS: Limited examination due to breathing and motion artifact. Proximal main pulmonary arteries are normal. Suboptimal contrast bolus with poor evaluation of the se gmental and subsegmental pulmonary arteries. No proximal pulmonary embolus visualized. Moderate chronic emphysematous changes. Slight bibasal atelectasis. Aortic calcification. Coronary ca lcification. Mild thoracic curve. Mild thoracic kyphosis. CT/CT angio chest PE protcl [id number] IMPRESSION: 1. Proximal main pulmonary arteries are normal. No evidence of proximal main p ulmonary embolus. Suboptimal contrast opacification with poor evaluation of the segmental and subsegmental pulmonary arteries 2. Moderate chronic eczematous changes. 3. Bibasal atelectasis. 4. Aortic calcification. Coronary calcification.
[2024-01-28] MEDS: iohexol 350 mg/mL 500 mL Btl (per mL) IV (09:39)
--- NOTE | 2024-01-28 09:42 | PC.NURSE ---
[address] via bed with O2 on at 3L NC per instructed by RT, with monitor for CT angiogram of chest. Tolerated well. Back to room without any issues.
--- NOTE | 2024-01-28 10:28 | PC.CHAP ---
Pastoral Care Encounter/Spiritual Assessment Type of Contact [] Declined dance coach visit [] Patient/Family/Request visit [] Outpatient visit [] Follow-up visit [] Physician referral [] Code/Alert [x] Routine visit [] Staff referral [] Actively dying [x] Patient sleeping [] Family support [] [] Out of room [] Palliative care [] [] Receiving care in room [] Pre-surgical visit [] Trauma [] Long length of stay [x] ICU visit [x] Other: vent Relational/Emotional Strength [] Patient feels connected with others/family/visitors/staff [] Distress [] Loneliness/isolation [] Abandonment Spirituality of Patient [] Person of Kirstin [] Attends Orthodoxy of their Kirstin [] Believes in Prayer [] Reads Bible or Tenriism materials [] There are Spiritual issues to be addressed Size Stamper Interventions [x] Prayer [] Active listening [] Non-anxious presence [] Spiritual/emotional support [] Crisis/trauma care [] Spiritual counseling [] Bereavement support [] Provided bereavement packet [] Provided Bible/devotional materials [] Provided toy/stuffed animal, coloring book to patient or family member [] Provided Communion [] Anointing/[place] [] Salvation [] Completed spiritual assessment [] Other: Impact on Illness or Injury [] Angry [] Fearful [] Anxious [] Often cries [] Exhaustion [] Unable to work [] Unable to attend judaism [] Unable to walk/stand [] Unable to read [] Unable to drive [] Unable to eat/drink [] Unable to sleep [] Unable to be with family [] Patient intubated [] Other: Summary Time spent with patient
--- NOTE | 2024-01-28 11:52 | P.PN_ITS ---
Subjective 2 Subjective: Neuro recommended aspirin and statins Which have been added Requested CTA chest with did not show PE D-dimer was high Request venous Doppler as well Patient is still confused and not eating well Vitals/I&O/Wt Last Vital Signs Temp 97.2 F L 01/28/24 08:00 Pulse 109 H 01/28/24 10:21 Resp 25 H 01/28/24 11:27 BP 154/79 01/28/24 10:00 Pulse Ox 98 01/28/24 11:27 O2 Del Method BiPAP 01/28/24 08:45 O2 Flow Rate 6 01/27/24 13:30 FiO2 30 01/28/24 10:21 01/27/24 01/28/24 01/28/24 22:59 06:59 14:59 Intake Total 160 / 1171.014 50 / 1221.014 50 / 50 Output Total 1400 / 1400 800 / 2200 Balance -1240 / -228.986 -750 / -978.986 50 / 50 Weight last 48 hrs Weight 109.5 kg Weight 109.769 kg Weight 112.491 kg Physical Exam 2 Narrative: Patient is still oriented to himself Confused Moving his extremities Lower extremity mild edema S1, S2 sinus rhythm Currently on nasal cannula Abdomen soft Urinary Catheter Management: Spears: Cath Placed During This Visit: yes Reason for Continuing Indwelling Catheter: Accurate Measurement of Urinary Output in Critically Ill Patients Urinary Catheter Date of Insertion: 01/23/24 Urinary Catheter Time of Insertion: 13:30 Data 01/28/24 04:30 01/28/24 04:30 A&P Assessment and plan (1) Failure to thrive: (2) Hematuria: (3) Bladder outlet obstruction: (4) UTI (urinary tract infection): (5) Delirium: (6) Dementia: (7) Slurred speech: (8) Recurrent falls: (9) Anorexia: (10) Aspiration pneumonia: (11) Pulmonary vascular congestion: Plan Delirium with underlying dementia Patient has not eaten for last significant amount of days Prognosis seems guarded if he is not able to eat on his own Intermittent use of Precedex For tachypnea tachycardia will give labetalol on as-needed basis Add Zosyn on top of ceftriaxone for aspiration pneumonia Liver breathing has improved CT chest did not show any sign of PE requested venous Doppler Seeking Barbie psych placement Guarded prognosis Afebrile without leukocytosis Suspicion for meningitis low MRI head unremarkable Spears catheter in place Full code CTAhead and neck showed carotid disease for which aspirin and atorvastatin has been added Attestations 2 Medical Necessity Statement*: Continue medical management Diagnoses Failure to thrive Hematuria R31.9 Bladder outlet obstruction N32.0 UTI (urinary tract infection) N39.0 Delirium R41.0 Dementia F03.90 Slurred speech R47.81 Recurrent falls R29.6 Anorexia R63.0 Aspiration pneumonia J69.0 Pulmonary vascular congestion R09.89
[2024-01-28] MEDS: pregabalin 100 mg Capsule 200 MG PO ×2 (11:54→17:38)
[2024-01-28 12:06] LABS: Glucose Point of Care 122 mg/dL (70-110)
[2024-01-28] MEDS: enoxaparin 40 mg/0.4 mL Syringe SUBCUT (13:03)
[2024-01-28] MEDS: cefTRIAXone 1,000 MG in sodium chloride 0.9% (plus) 100 ML 200 MG IV (13:27)
--- NOTE | 2024-01-28 15:47 | PC.NURSE ---
1520 Family ,son, came into visit, holding hand and trying to comfort. Patient restless, pulling at things. 1529 Medicated with Morphine PRN dose, encouraged family to let rest.
[2024-01-28 17:29] LABS: Glucose Point of Care 168 mg/dL (70-110)
--- NOTE | 2024-01-28 18:32 | PC.NURSE ---
1814 Resp rate increased with abd breathing, repositioned, then tried O2 on nasal canula at 3L for 5 minutes, same resp rate. Sat declined to 89 on nasal canula. Placed back on bipap. Resp rate slowed, but still has more abdominal breathing than earlier. Contacted RT to check bipap and status. No changes made. 1834 Still abdominal breathing, not time for any more meds at this time. Placed head of bed at 45 degrees during this time.
--- NOTE | 2024-01-28 18:45 | PC.NURSE ---
[address] Machuca about patients resp increase and abdominal breathing not setteling down after PRN meds as he had earlier today. He ask me to start back on Presedex. Did so at 0.1 per MAR>
[2024-01-28 20:04] LABS: Glucose Point of Care 133 mg/dL (70-110)
--- NOTE | 2024-01-28 20:08 | PC.NURSE ---
Patient is unable to follow commands and respiratory rate of 33. Doctor Cabrera was contacted to see if it was possible to place an NG tube in patient to reduce risk of aspiration. Doctor ordered for NG tube to not be placed at this time and to change aspirin from PO to rectal if patient is unable to tolerate PO medication.
[2024-01-28] MEDS: quetiapine 25 mg Tablet PO (20:17)
[2024-01-28] MEDS: atorvastatin 40 mg Tablet PO (20:17)
[2024-01-28] MEDS: hyDRALAzine 20 mg/mL INJ 1 mL 5 MG IVP (20:35)
[2024-01-29] VITALS (48 sets, daily range): BP systolic 111–179; BP diastolic 57–120; PULSE 81–121; RESP 13–48; TEMP 36.8–37; O2SAT 80–100; BMI 32.4
[2024-01-29] MEDS: piperacillin-tazobactam 3.375 GM in sodium chloride 0.9% (plus) 50 ML IV ×2 (04:13→13:34)
[2024-01-29 04:43] LABS: Basophils # 0.1 10^3/uL (0.0-0.1); Basophils % 0.6 %; Eosinophils # 0.2 10^3/uL (0.0-0.8); Eosinophils % 2.2 %; Hematocrit 40.1 % (37-53); Lymphocytes # 1.8 10^3/uL (0.8-4.8); Lymphocytes % 19.7 %; Mean Corpuscular HGB Conc 33.2 g/dL (30-55); Mean Corpuscular Hemoglobin 30.9 pg (27-33); Monocytes # 1.8 10^3/uL (0.2-0.9); Monocytes % 19.6 %; Neutrophils # 5.15 10^3/uL (1.8-7.7); Neutrophils % 57.1 %; Nucleated Red Blood Cells % 0 %; Platelet Count 388 10^3/cmm (157-399); Red Blood Count 4.31 10^6/uL (3.85-5.65); Red Cell Distribution Width 16.2 % (12.1-15.1); White Blood Count 9.02 10^3/uL (3.29-11.43)
[2024-01-29 05:11] LABS: Anion Gap 23.2 (5-19); Blood Urea Nitrogen 18 mg/dL (8-23); Calcium 8.8 mg/dL (8.5-10.5); Carbon Dioxide 24 mmol/L (22-29); Chloride 107 mmol/L (98-107); Creatinine Clr Calc Pharmacy 49.3633; Glucose 154 mg/dL (65-115); Osmolality Calculated 317 mOsm/kg (285-295); Potassium 3.2 mmol/L (3.5-5.1); Sodium 151 mmol/L (136-145)
[2024-01-29 07:44] LABS: Glucose Point of Care 152 mg/dL (70-110)
--- NOTE | 2024-01-29 08:21 | P.PN_ITS ---
Subjective 2 Subjective: History of Present Illness El Maxwell is a 83 year old male who was admitted recently secondary to urinary tract infection and confusion. Patient was treated with IV antibiotics and discharged home on antibiotics but returned secondary to the reporting patient was even more confused and agitated. Patient was admitted to the intensive care unit and started on Precedex secondary to agitation. Patient was also reported to be given haloperidol. Patient has been off of Precedex for proxy 72 hours and remains confused. Therefore neurology consult was obtained. Head MRI performed on 01/19/2024 revealed no acute findings. Noncontrast head CT 01/23/2024 was reported to be negative for any acute findings. Arterial blood gases were obtained at midnight on 01/27/2024 and revealed pO2 of 65.2 pCO2 33.8 bicarb 20 pH 7.38. The patient was reported to be afebrile. On clinical examination today the patient was lying in bed. He is in soft restraints. Patient moving the left arm and left leg spontaneously. He will move the right leg and right arm occasionally but less than the left side. Patient breathing heavy using his accessory muscles. He does not follow commands and appears agitated. I recommended repeat ABGs stat and CT angiogram of the head and neck to assess for carotid or intracranial stenosis. Also recommended lab for thyroid profile and magnesium. Patient reported by the attending physician to not consume alcohol or other recreational drugs. Patient on BiPAP and Precedex. Magnesium performed on 2023 was slightly decreased at 1.4. CT angiogram of the head and neck performed on 01/27/2024 revealed Dense calcified atheromatous plaque RIGHT carotid bulb extending into the ICA with at least moderate carotid stenosis although difficult to further assess due to respiratory artifact through the bifurcation. RIGHT ICA remains patent to the skull base. Consider ultrasound in further evaluation or repeat CTA when patient is more stable. Current medications Acarbose 50 mg p.o. 3 times daily Tylenol 500 mg p.o. twice daily, as needed pain Norvasc 10 mg p.o. daily Benazepril Prill 20 mg p.o. daily Cymbalta 30 mg p.o. daily Glipizide 10 mg p.o. 3 times daily Glucosamine sulfate 500 mg p.o. daily Hydrochlorothiazide 25 mg p.o. daily Lantus insulin 50 units subcutaneously daily Levofloxacin 750 mg p.o. daily x 7 days Lovastatin 40 mg p.o. daily Namenda 5 mg p.o. twice daily Multivitamin with folic acid 1 p.o. daily [place]-3 fatty acid 2 capsules 3 times daily Ozempic to be taken as directed Pioglitazone 30 mg p.o. daily Potassium chloride 10 mEq p.o. daily Lyrica 300 mg p.o. twice daily Effexor 75 mg p.o. twice daily Habits: Unknown Family history: Unknown Review of Systems General: Reports: ROS unobt ainable due to med ical condition Vitals/I&O/Wt Last Vital Signs Temp 98.3 F 01/29/24 07:41 Pulse 90 01/29/24 08:00 Resp 13 01/29/24 08:00 BP 126/59 01/29/24 08:00 Pulse Ox 97 01/29/24 08:00 O2 Del Method BiPAP 01/29/24 07:41 O2 Flow Rate 6 01/27/24 13:30 FiO2 30 01/29/24 07:41 01/28/24 01/29/24 01/29/24 22:59 06:59 14:59 Intake Total 63.774 / 213.774 53.419 / 267.193 17.943 / 17.943 Output Total 500 / 500 100 / 600 Balance -436.226 / -286.226 -46.581 / -332.807 17.943 / 17.943 Weight last 48 hrs Weight 239 lb 8 oz Weight 241 lb 6.499 oz Physical Exam 2 Narrative: The patient is on BiPAP and Precedex the patient is arousable but confused. He is moving the left side and occasionally the right side spontaneously. Patient has less movement involving the right arm and right leg compared to the left side. Pupils 3 mm appear to be reactive to light. Extraocular movements could not be assessed secondary to lack of patient cooperation. Patient moaning. Throat clear. Patient's breathing improved on BiPAP and Precedex . Respiration rate improved. Plantar responses flexor bilaterally. There is no clonus. Sensory examination intact to pain. Lungs revealed no obvious wheezing. Extremities were negative for cyanosis. Heart revealed regular rhythm and rate. Urinary Catheter Management: Spears: Cath Placed During This Visit: yes Reason for Continuing Indwelling Catheter: Accurate Measurement of Urinary Output in Critically Ill Patients Urinary Catheter Date of Insertion: 01/23/24 Urinary Catheter Time of Insertion: 13:30 Data 01/29/24 04:07 01/29/24 04:07 A&P Assessment and plan (1) Encephalopathy acute: Impression: 1. Acute encephalopathy 2. Questionable right-sided weakness 3. Decrease magnesium 1.4 on 01/27/2024 4. Urinary tract infection, status post treatment 5. Dense calcified atheromatous plaque RIGHT carotid bulb extending into the ICA with at least moderate carotid stenosis although difficult to further assess due to respiratory artifact through the bifurcation. RIGHT ICA remains patent to the skull base. Plan: 1. Recommend addressing low magnesium level 1.4 on 01/27/2024 2. Consider holding Cymbalta and Effexor in case patient experiencing early signs of serotonin syndrome 3. Determine if patient was taking Lyrica at home (acute discontinuation of Lyrica can be associated with change in mental status and agitation). Recommend having patient resume Lyrica via NG tube if needed 4. Recommend obtaining noncontrast head MRI when possible further assess for stroke involving the left hemisphere if the patient's symptoms do not improve. 5. Recommend repeat CT angiogram of the head and neck as recommended by radiology when patient more stable/cooperative Attestations 2 Medical Necessity Statement*: Patient evaluated by neurology for decreased level consciousness/agitation Coding Level of Care Code 53694 Diagnoses Encephalopathy acute G93.40
[2024-01-29] MEDS: dextrose 5% 1,000 ML 75 ML IV (09:01)
--- NOTE | 2024-01-29 09:15 | PC.NURSE ---
Pt morning meds not given. Pt BP is good while on Precedex and the other meds weren't given as the pt is sedated and unable to take po meds and the pt is requiring Bipap for ventilation and unable to remove at this time.
--- NOTE | 2024-01-29 11:18 | PC.SOCIAL ---
IMM Update Pg. 2 of IMM updated and reviewed with family at bedside, who verbalized understanding. Copy provided.
--- NOTE | 2024-01-29 11:21 | P.PN_ITS ---
Subjective 2 Subjective: Patient is still obtunded, not able to eat Currently on BiPAP Family meeting conducted, patient was examined multiple times Goals of care has been changed to comfort measures/hospice care, son present at the bedside, is also at the bedside, they are preferring [facility] fpc with policy and planning manager updated Vitals/I&O/Wt Last Vital Signs Temp 98.3 F 01/29/24 07:41 Pulse 90 01/29/24 08:38 Resp 18 01/29/24 08:38 BP 126/59 01/29/24 08:00 Pulse Ox 96 01/29/24 08:38 O2 Del Method BiPAP 01/29/24 08:38 O2 Flow Rate 6 01/27/24 13:30 FiO2 30 01/29/24 08:38 01/28/24 01/29/24 01/29/24 22:59 06:59 14:59 Intake Total 63.774 / 213.774 53.419 / 267.193 67.943 / 67.943 Output Total 500 / 500 100 / 600 Balance -436.226 / -286.226 -46.581 / -332.807 67.943 / 67.943 Weight last 48 hrs Weight 108.635 kg Weight 109.5 kg Physical Exam 2 Narrative: Patient is obtunded Currently on BiPAP Hemodynamically stable On Precedex 0.[address] Signs of dehydration present Nondistended abdomen Urinary Catheter Management: Spears: Cath Placed During This Visit: yes Reason for Continuing Indwelling Catheter: Accurate Measurement of Urinary Output in Critically Ill Patients Urinary Catheter Date of Insertion: 01/23/24 Urinary Catheter Time of Insertion: 13:30 Data 01/29/24 04:07 01/29/24 04:07 A&P Assessment and plan (1) Failure to thrive: (2) Hematuria: (3) Bladder outlet obstruction: (4) UTI (urinary tract infection): (5) Right sided weakness: (6) Delirium: (7) Encephalopathy acute: (8) Dementia: (9) Slurred speech: (10) Aspiration pneumonia: (11) Pulmonary vascular congestion: (12) Recurrent falls: (13) Anorexia: Plan Family meeting conducted today, son and present at the bedside Patient has not eaten at all Requiring Precedex and BiPAP is stating that Mr. Wonders would never want to stay alive on BiPAP, he would never agree for a feeding tube They are wanting to pursue hospice care at [facility], caseworker protective services updated Change CODE STATUS to comfort measures only Start hospice care in the hospital I will discontinue ceftriaxone, aspirin, atorvastatin, we may resume rest of the medications Precedex can be used on as-needed basis In the morning patient was started on D5 IV fluids for hypernatremia related to dehydration poor p.o. intake He can be safely transferred out of ICU if not required Precedex Attestations 2 Medical Necessity Statement*: Continue medical management Diagnoses Failure to thrive Hematuria R31.9 Bladder outlet obstruction N32.0 UTI (urinary tract infection) N39.0 Right sided weakness R53.1 Delirium R41.0 Encephalopathy acute G93.40 Dementia F03.90 Slurred speech R47.81 Aspiration pneumonia J69.0 Pulmonary vascular congestion R09.89 Recurrent falls R29.6 Anorexia R63.0
[2024-01-29 11:31] LABS: Glucose Point of Care 187 mg/dL (70-110)
[2024-01-29] MEDS: insulin lispro 100 unit/1 mL SUBCUT ×2 (12:33→18:44)
[2024-01-29] MEDS: dexmedeTOMIDine 0.9 % NaCL 400 MCG/100 ML PREMIX 5.59999999999999964 MCG IV (13:34)
[2024-01-29] MEDS: enoxaparin 40 mg/0.4 mL Syringe SUBCUT (13:35)
[2024-01-29] MEDS: morphine 4 mg/mL SDV 1 mL IVP ×4 (18:42→23:33)
[2024-01-29 18:44] LABS: Glucose Point of Care 168 mg/dL (70-110)
--- NOTE | 2024-01-29 19:55 | PC.NURSE ---
Report was given to GABRIELA Hussien. Patient was transferred to [facility] without any complications. All belongings were taken by the patient's home.
--- NOTE | 2024-01-29 20:27 | PC.NURSE ---
pt was released from restraints at 01/28. restraints not indicated at this time, pt is resting in bed with respirations. Family at bedside.
[2024-01-29] MEDS: LORazepam 2 mg/mL INJ 10 mL MDV IVP (20:58)
[2024-01-30] VITALS (7 sets, daily range): BP systolic 112–120; BP diastolic 61–64; PULSE 103–121; RESP 22–36; TEMP 37.4–37.9; O2SAT 62–83
[2024-01-30] MEDS: morphine 4 mg/mL SDV 1 mL IVP ×10 (00:49→23:57)
--- NOTE | 2024-01-30 10:16 | P.PN_ITS ---
Subjective 2 Subjective: Awaiting retirement placement with hospice No active signs of behavior issues Patient is resting comfortably Family at the bedside Vitals/I&O/Wt Last Vital Signs Temp 99.3 F 01/30/24 00:00 Pulse 121 H 01/30/24 00:00 Resp 36 H 01/30/24 00:49 BP 120/64 01/30/24 00:00 Pulse Ox 62 L 01/30/24 00:49 O2 Del Method Nasal Cannula 01/30/24 00:00 O2 Flow Rate 2 01/30/24 08:26 FiO2 30 01/29/24 08:38 01/29/24 01/30/24 01/30/24 22:59 06:59 14:59 Intake Total 922.723 / 1020.813 Output Total 325 / 325 150 / 475 Balance 597.723 / 695.813 -150 / 545.813 Weight last 48 hrs Weight 108.635 kg Physical Exam 2 Narrative: No signs of agonal breathing Currently on nasal cannula Tachycardic with normal blood pressure Clinical signs of dehydration Urinary Catheter Management: Spears: Cath Placed During This Visit: yes Reason for Continuing Indwelling Catheter: Hospice/Comfort/Palliative Care Urinary Catheter Date of Insertion: 01/23/24 Urinary Catheter Time of Insertion: 13:30 Data 01/29/24 04:07 01/29/24 04:07 A&P Assessment and plan (1) Failure to thrive: (2) Hospice care: Plan Awaiting placement to retirement with hospice Attestations 2 Medical Necessity Statement*: Awaiting placement Coding Level of Care Code Acute Code for Chg Fwd Diagnoses Failure to thrive Hospice care Z51.5
[2024-01-30] MEDS: glycopyrrolate 0.2 mg/mL SDV 2 mL 0.200000000000000011 MG IV ×2 (20:11→23:57)
[2024-01-31] VITALS (8 sets, daily range): BP systolic 116; BP diastolic 63; PULSE 104–110; RESP 16–36; TEMP 37.4; O2SAT 79–80
[2024-01-31] MEDS: morphine 4 mg/mL SDV 1 mL IVP ×7 (01:17→15:21)
[2024-01-31] MEDS: atropine 1% op soln 2 mL Btl 3 DROP SUBLINGUAL ×2 (05:37→20:26)
[2024-01-31] MEDS: LORazepam 2 mg/mL INJ 10 mL MDV IVP (10:20)
[2024-01-31] MEDS: glycopyrrolate 0.2 mg/mL SDV 2 mL 0.200000000000000011 MG IV ×2 (10:20→15:25)
--- NOTE | 2024-01-31 11:34 | P.PN_ITS ---
Subjective 2 Subjective: Patient is getting morphine as per the hospice protocol Family was requesting if I could keep him in the hospital because they were very happy with the nursing care I told him at this point it is very hard to predict what is going to happen the next few days to weeks so it is better for good keep looking for shelter placement They were in agreement Vitals/I&O/Wt Last Vital Signs Temp 99.4 F 01/31/24 07:45 Pulse 104 H 01/31/24 07:45 Resp 16 01/31/24 07:45 BP 116/63 01/31/24 07:45 Pulse Ox 79 L 01/31/24 07:45 O2 Del Method Nasal Cannula 01/31/24 07:45 O2 Flow Rate 1 01/31/24 08:00 FiO2 30 01/29/24 08:38 01/30/24 01/31/24 01/31/24 22:59 06:59 14:59 Intake Total 0 / 0 0 / 0 Output Total 50 / 50 Balance 0 / 0 -50 / -50 Weight last 48 hrs Weight 108.499 kg Physical Exam 2 Narrative: Patient is obtunded Not able to communicate No signs of agonal breathing Currently on nasal cannula 2 L Tachycardic, normotensive Urinary Catheter Management: Spears: Cath Placed During This Visit: yes Reason for Continuing Indwelling Catheter: Hospice/Comfort/Palliative Care Urinary Catheter Date of Insertion: 01/23/24 Urinary Catheter Time of Insertion: 13:30 Data 01/29/24 04:07 01/29/24 04:07 A&P Assessment and plan (1) Hospice care: (2) Failure to thrive: (3) Bladder outlet obstruction: (4) UTI (urinary tract infection): (5) Delirium: (6) Encephalopathy acute: (7) Dementia: (8) Aspiration pneumonia: (9) Recurrent falls: Plan Advanced dementia Patient currently is on hospice care We are still looking for shelter placement with hospice No active aggressive behavior issues at this point Patient is very calm Family is at the bedside Attestations 2 Medical Necessity Statement*: Awaiting placement Diagnoses Hospice care Z51.5 Failure to thrive Bladder outlet obstruction N32.0 UTI (urinary tract infection) N39.0 Delirium R41.0 Encephalopathy acute G93.40 Dementia F03.90 Aspiration pneumonia J69.0 Recurrent falls R29.6
--- NOTE | 2024-01-31 13:36 | PM.DCS ---
Discharge Providers Date of Admission: 01/23/24 13:50 Date of Discharge: January 31, 2024 Attending Provider at Admission: Keanu Machuca MD Attending Provider at Discharge: Keanu Machuca MD Primary Care Provider: TANMAY Rangel Diagnoses at Discharge Discharge Diagnosis (1) Failure to thrive: Status: Acute (2) Hematuria: Status: Acute (3) Bladder outlet obstruction: Status: Acute (4) UTI (urinary tract infection): Status: Acute (5) Right sided weakness: Status: Acute (6) Delirium: Status: Acute (7) Encephalopathy acute: Status: Acute (8) Dementia: Status: Acute (9) Slurred speech: Status: Acute (10) Aspiration pneumonia: Status: Acute (11) Pulmonary vascular congestion: Status: Acute (12) Recurrent falls: Status: Acute (13) Anorexia: Status: Acute Reason for Visit Reason for Visit: ams Hospital Course Hospital Course 83-year-old male who present to the hospital for worsening of confusion, he was recently discharged from the hospital after management evaluation of UTI related metabolic encephalopathy with delirium with underlying dementia, extensive workup was pursued MRI head was unremarkable it was consistent with age-related changes noted on brain parenchyma, we were recommending chcf however patient and both wanted to try home to avoid chcf placement. However he came back within 48 hours after multiple falls, patient had not been eating, getting very aggressive with his , in the hospital he required ICU admission because we had to use Precedex drip to calm him down, he required IV fluids to avoid dehydration, during hospitalization neurology was consulted who recommended continuation of Lyrica which did not change his mentation at all, for about 2 weeks patient has not eaten well, his mentation has not improved despite the medications IV fluids and antibiotics, CTA chest was done to rule out PE as well, patient required Precedex for at least 4 days, multiple family meetings were conducted, wanted to wait until son was at the bedside. Another family meeting was done in the ICU, both son and the decided to pursue hospice care, they were against the idea of TPN, NG tube feeding or PEG tube placement. They are requesting chcf placement on hospice Physical Exam Narrative: Patient is obtunded Currently getting opioids No signs of agonal breathing yet Urinary Catheter Management: Spears: Cath Placed During This Visit: yes Reason for Continuing Indwelling Catheter: Hospice/Comfort/Palliative Care Urinary Catheter Date of Insertion: 01/23/24 Urinary Catheter Time of Insertion: 13:30 Discharge Data Studies Completed and Pending Completed Studies During Hospitalization Category Date Time Status CT abdomen pelvis wo con [id number] Stat Cat Scan 01/23/24 13:[address] head wo con* [id number] Stat Cat Scan 01/23/24 10:09 Completed CTA PE [CT angio chest PE protcl [id number]] Routine Cat Scan 01/28/24 08:38 Completed CTA head neck [CT angio headneck* [id number]] Urgent Cat Scan 01/27/24 12:15 Completed XR chest 1V portable [id number] Stat Exams 01/23/24 10:09 Completed XR chest 1V portable [id number] Urgent Exams 01/27/24 09:09 [place] [id number] Routine Ultrasound 01/28/24 08:38 Completed Radiology Impressions Head CT 01/23/24 10:09 IMPRESSION: 1. No acute intracranial hemorrhage or edema. 2. Moderate atrophy and small vessel ischemic disease. Stable head CT and since 01/16/2024. Abdomen/Pelvis CT 01/23/24 13:40 IMPRESSION: 1. No acute or new findings within the abdomen or pelvis since 01/16/2024. 2. No renal obstruction. 3. Prior cholecystectomy. 4. No GI tract obstruction. 5. Diverticulosis without acute diverticulitis. 6. No appendicitis. 7. RIGHT inguinal lymph nodes with adjacent soft tissue stranding has slightly improved since 01/16/2024. Chest X-Ray 01/27/24 09:09 IMPRESSION: There is some patchy, bandlike opacification suggestive of some early inflammation of the left lung base. Overall, no interval lobar consolidation or cardiac decompensation is appreciated. Head/Neck CTA 01/27/24 12:15 IMPRESSION: Evaluation is somewhat limited due to respiratory artifact and motion artifact. 1. Dense calcified atheromatous plaque RIGHT carotid bulb extending into the ICA with at least moderate carotid stenosis although difficult to further assess due to respiratory artifact through the bifurcation. RIGHT ICA remains patent to the skull base. Consider ultrasound in further evaluation or repeat CTA when patient is more stable. 2. No significant LEFT ICA stenosis. 3. Moderate intracranial atheromatous disease. No flow-limiting proximal intracranial stenosis Chest CTA 01/28/24 08:38 IMPRESSION: 1. Proximal main pulmonary arteries are normal. No evidence of proximal main pulmonary embolus. Suboptimal contrast opacification with poor evaluation of the segmental and subsegmental pulmonary arteries 2. Moderate chronic eczematous changes. 3. Bibasal atelectasis. 4. Aortic calcification. Coronary calcification. Laboratory Results WBC 9.02 10^3/uL (3.29-11.43) 01/29/24 04:07 RBC 4.31 10^6/uL (3.85-5.65) 01/29/24 04:07 Hgb 13.30 g/dL (11.27-16.99) 01/29/24 04:07 Hct 40.1 % (37-53) 01/29/24 04:07 MCV 93.0 fl (82-101) 01/29/24 04:07 MCH 30.9 pg (27-33) 01/29/24 04:07 MCHC 33.2 g/dL (30-55) D 01/29/24 04:07 RDW 16.2 % (12.1-15.1) H 01/29/24 04:07 Plt Count 388 10^3/cmm (157-399) 01/29/24 04:07 MPV 12.0 fL (7.4-10.4) H 01/29/24 04:07 Neut % (Auto) 57.1 % 01/29/24 04:07 Lymph % (Auto) 19.7 % 01/29/24 04:07 [place] % (Auto) 19.6 % 01/29/24 04:07 Eos % (Auto) 2.2 % 01/29/24 04:07 Baso % (Auto) 0.6 % 01/29/24 04:07 Neut # (Auto) 5.15 10^3/uL (1.8-7.7) 01/29/24 04:07 Lymph # (Auto) 1.8 10^3/uL (0.8-4.8) 01/29/24 04:07 [place] # (Auto) 1.8 10^3/uL (0.2-0.9) H 01/29/24 04:07 Eos # (Auto) 0.2 10^3/uL (0.0-0.8) 01/29/24 04:07 Baso # (Auto) 0.1 10^3/uL (0.0-0.1) 01/29/24 04:07 Nucleated RBC % (auto) 0 % 01/29/24 04:07 Nucleated RBCs # 0.0 /100WBC 01/29/24 04:07 PT 13.50 SECONDS (12.1-14.9) 01/23/24 10:42 INR 1.00 (0.8-1.2) 01/23/24 10:42 D-Dimer 2.02 ug/mLFEU (0-0.59) H 01/27/24 11:42 Specimen Type Arterial 01/27/24 12:16 Sample Site Radial, left 01/27/24 12:16 ABG pH 7.48 (7.35-7.45) H 01/27/24 12:16 ABG pCO2 31.6 mmHg (35-45) L 01/27/24 12:16 ABG pO2 66.1 mmHg (80.0-100.0) L 01/27/24 12:16 ABG PO2/FiO2 Ratio 0 01/27/24 12:16 ABG HCO3 23.3 mmol/L (22-26) 01/27/24 12:16 ABG O2 Saturation 95.0 01/27/24 12:16 ABG Base Excess 0.5 mmol/L (-2.0-2.0) 01/27/24 12:16 Lukas Test Pos 01/27/24 12:16 A-a O2 Gradient 5.7 mmHg (5-10) 01/27/24 12:16 Hematocrit 42.8 % (42-52) 01/27/24 12:16 Hgb O2 Saturation 93.5 % (95-100) L 01/27/24 12:16 Carboxyhemoglobin 1.2 %THgb (0.4-20.1) 01/27/24 12:16 Methemoglobin 0.4 % (0.4-1.5) 01/27/24 12:16 Total Hemoglobin 14.0 g/dL (14-18) 01/27/24 12:16 Sodium 149.0 mmol/L (131-143) H 01/27/24 12:16 Potassium 2.7 mmol/L (3.5-5.0) L 01/27/24 12:16 Glucose 168.0 mg/dL (70-115) H 01/27/24 12:16 Ionized Calcium 1.1 mmol/L (1.1-1.4) 01/27/24 12:16 O2 Delivery Device Room air 01/27/24 12:16 FiO2 21.0 % 01/27/24 12:16 [place] Curt[employer] Tender ID Cak 01/27/24 12:16 Sodium 151 mmol/L (136-145) H 01/29/24 04:07 Potassium 3.2 mmol/L (3.5-5.1) L 01/29/24 04:07 Chloride 107 mmol/L (98-107) 01/29/24 04:07 Carbon Dioxide 24 mmol/L (22-29) 01/29/24 04:07 Anion Gap 23.2 (5-19) H 01/29/24 04:07 BUN 18 mg/dL (8-23) 01/29/24 04:07 Creatinine 1.5 mg/dL (0.7-1.2) H 01/29/24 04:07 GFR Calculation Not Reportable 01/29/24 04:07 Glucose 154 mg/dL (65-115) H 01/29/24 04:07 POC Glucose 168 mg/dL (70-110) H 01/29/24 18:35 Calculated Osmolality 317 mOsm/kg (285-295) H 01/29/24 04:07 Calcium 8.8 mg/dL (8.5-10.5) 01/29/24 04:07 Magnesium 1.4 mg/dL (1.7-2.3) L 01/27/24 05:56 Total Bilirubin 1.0 mg/dL (0.15-1.2) 01/23/24 10:42 AST 66 U/L (0-40) H 01/23/24 10:42 ALT 50 U/L (0-41) H 01/23/24 10:42 Alkaline Phosphatase 61 U/L (40-130) 01/23/24 10:42 Ammonia 20 umol/L (16-60) 01/23/24 10:42 Creatine Kinase 96 U/L (39-308) 01/26/24 05:29 NT-Pro-B Natriuret Pep 208 pg/mL (0-450) 01/23/24 10:42 Total Protein 7.7 g/dL (6.6-8.7) 01/23/24 10:42 Albumin 3.9 g/dL (3.5-5.2) 01/23/24 10:42 Globulin 3.8 g/dL (1.3-4.6) 01/23/24 10:42 TSH 0.95 uIU/mL (0.27-4.20) 01/27/24 05:56 Free T4 1.96 ng/dL (0.82-1.77) H 01/27/24 05:56 Free T3 2.4 PG/ML (2.0-4.4) 01/27/24 05:56 Urine Color Yellow (Yellow) 01/23/24 10:49 Urine Appearance Cloudy (CLEAR) A 01/23/24 10:49 Urine pH 5 (5-7) 01/23/24 10:49 Ur Specific [place] 1.020 (1.005-1.030) 01/23/24 10:49 Urine Protein 3+ (Negative) H 01/23/24 10:49 Urine Glucose (UA) 2+ (Normal) H 01/23/24 10:49 Urine Ketones 1+ (Negative) H 01/23/24 10:49 Urine Blood 3+ (Negative) H 01/23/24 10:49 Urine Nitrate Negative (Negative) 01/23/24 10:49 Urine Bilirubin 1+ (Negative) H 01/23/24 10:49 Urine Urobilinogen 1 mg/dL (Negative) H 01/23/24 10:49 Ur Leukocyte Esterase Negative (Negative) 01/23/24 10:49 Urine RBC 15-25 /hpf (0-2) H 01/23/24 10:49 Urine WBC 0-4 /hpf (0-5) H 01/23/24 10:49 Ur Squamous Epith Cells 0-4 /hpf (0-5) H 01/23/24 10:49 Amorphous Sediment 2+ /hpf 01/23/24 10:49 Urine Bacteria Trace /hpf (NONE) 01/23/24 10:49 Hyaline Casts 0-4 /lpf H 01/23/24 10:49 Urine Mucus 3+ /hpf 01/23/24 10:49 Vitals Last Vital Signs Temp 99.3 F 01/30/24 00:00 Pulse 121 H 01/30/24 00:00 Resp 36 H 01/30/24 00:49 BP 120/64 01/30/24 00:00 Pulse Ox 62 L 01/30/24 00:49 O2 Del Method Nasal Cannula 01/30/24 00:00 O2 Flow Rate 2 01/30/24 08:26 FiO2 30 01/29/24 08:38 Discharge Plan Discharge Patient Disposition: Xfer SNF Condition: Stable Prescriptions: Continued (DME) knee immobilizer See Rx Instructions .Route .MEDSUPPLY Qty: 1 0RF Rx Instructions: As directed acetaminophen 500 mg Tablet 500 mg PO BID PRN (Reason: Pain) Discontinued venlafaxine 75 mg tablet 75 mg PO BID@08,20 lovastatin 40 mg tablet 40 mg PO DAILY@20 benazepril 20 mg tablet 20 mg PO DAILY@08 Rx Instructions: HOLD IF BP IS LESS THAN 100 OR PULSE LESS THAN 60 hydrochlorothiazide 25 mg tablet 25 mg PO DAILY@08 memantine 5 mg tablet 5 mg PO BID@08,20 pregabalin [Lyrica] 300 mg Capsule 300 mg PO BID@08,20 multivitamin with folic acid [Thera] 400 mcg tablet 1 tab PO DAILY@08 glipizide 10 mg Tablet 10 mg PO TID Glucosamine 500 mg Tablet 500 mg PO DAILY Rx Instructions: administer with a meal Fish Oil 1,000 mg (120 mg-180 mg) Capsule 2 cap PO TID Lantus Solostar U-100 Insulin 100 unit/mL (3 mL) insulin pen 50 unit SUBCUT QAM acarbose 50 mg Tablet 50 mg PO TID pioglitazone 30 mg Tablet 30 mg PO DAILY duloxetine 30 mg Capsule,Delayed Release(Dr/Ec) 30 mg PO DAILY potassium chloride 20 mEq Tablet Extended Release 10 meq PO DAILY Ozempic 0.25 mg or 0.5 mg (2 mg/3 mL) Pen Injector See Rx Instructions .ROUTE .COMPLEX Rx Instructions: Inject 0.25 mg subcutaneously every 7 days for 30 days, then increase to 0.5mg every 7 days for diabetes. levofloxacin 750 mg tablet 750 mg PO DAILY 7 Days Qty: 7 0RF amlodipine 5 mg tablet 10 mg PO DAILY@08 Qty: 60 0RF Rx Instructions: HOLD IF BP IS LESS THAN 100 OR PULSE LESS THAN 60 Referrals: Christiana Holley FNP [Primary Care Provider] - Patient Instructions: Altered Mental Status (ED), Opioid Safety Discharge Attestations Time Spent in Discharge Care*: greater than 30 min Quality Metrics Clinical Quality Measures [ No reported AMI, CVA or VTE this stay] Coding Level of Care Code Acute Code for Chg Fwd Diagnoses Failure to thrive Hematuria R31.9 Bladder outlet obstruction N32.0 UTI (urinary tract infection) N39.0 Right sided weakness R53.1 Delirium R41.0 Encephalopathy acute G93.40 Dementia F03.90 Slurred speech R47.81 Aspiration pneumonia J69.0 Pulmonary vascular congestion R09.89 Recurrent falls R29.6 Anorexia R63.0
--- NOTE | 2024-01-31 13:43 | PM.MISC ---
Miscellaneous Note Purpose of Documentation: Cross coverage Note: Oral morphine 5 mg every 3 as needed ordered for comfort measures as per request from primary care physician
--- NOTE | 2024-01-31 13:48 | PC.SOCIAL ---
IMM Updated Updated pt's family on IMM. No questions voiced. Provided pt a copy. Initialed, dated, & timed copy in chart.
[2024-01-31] MEDS: morphine 10 mg/0.5 mL oral liq UD SUBLINGUAL ×2 (18:22→20:26)
--- NOTE | 2024-01-31 21:26 | PC.NURSE ---
Called [facility] at 1999 for updated ETA on pt's ride to [facility]. Phone was answered by Carlos, Carlos stated that they had no idea the patient was supposed to be transported tonight but that he had a truck that would be back in the district around 2129 that could come slate picker the patient. Notified the family at bedside.
--- NOTE | 2024-01-31 22:45 | PC.NURSE ---
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 Pt transferred to EMS stretcher, all belongings sent with family members. EMS left with pt at 2219.
== END 2024-01-31 22:24 | disposition hospice, home (50) | DRG 884 ==
LOC: ER 12:07 → MEDSURG 13:51 → ICU 01-24 13:41 → MEDSURG 01-29 19:50
PROVIDERS: Internal Medicine; Psychiatry & Neurology Neurology; Admitting Provider Internal Medicine; Emergency Provider Emergency Medicine; PCP Nurse Practitioner; Visit Provider Internal Medicine
DX: F03.911 Unspecified dementia, unspecified severity, with agitation (principal); J69.0 Pneumonitis due to inhalation of food and vomit; F05 Delirium due to known physiological condition; G81.91 Hemiplegia, unspecified affecting right dominant side; Z79.85 Long-term (current) use of injectable non-insulin antidiabetic drugs; Z79.4 Long term (current) use of insulin; Z79.84 Long term (current) use of oral hypoglycemic drugs; Z87.440 Personal history of urinary (tract) infections; Z86.73 Personal history of transient ischemic attack (TIA), and cerebral infarction without residual deficits; E11.22 Type 2 diabetes mellitus with diabetic chronic kidney disease; N18.9 Chronic kidney disease, unspecified; R29.810 Facial weakness; R29.6 Repeated falls; E87.6 Hypokalemia; M16.12 Unilateral primary osteoarthritis, left hip; R62.7 Adult failure to thrive; Z68.32 Body mass index [BMI] 32.0-32.9, adult; R47.81 Slurred speech; N32.0 Bladder-neck obstruction; R31.9 Hematuria, unspecified; E86.0 Dehydration; R00.0 Tachycardia, unspecified
CPT/HCPCS: 36415; 36416; 36600; 51702; 70450; 70496; 70498; 71045; 71275; 74176; 80048; 80051; 80053; 81001; 82140; 82330; 82550; 82805; 82962; 83735; 83880; 84439; 84443; 84481; 85025; 85378; 85610; 87086; 93005; 93970; 94660; 96360; 96361; 96372; 96374; 96376; 97110; 97162; 97530; 99285; J0360; J0696; J1630; J1650; J1815; J1940; J2060; J2270; J2543; J3490; J7030; J7070; Q9967